=== PATIENT | female | born 1990 | race Caucasian/White ===

== ENCOUNTER → 2020-04-15 12:42 | Outpatient (CLI) | payer OTHER, SELFPAY ==
--- NOTE | ~2020-04-15 | US_ITS ---
EXAMINATION: US transvaginal DATE: 04/15/2020 13:12 INDICATION: Irregular menstrual cycle TECHNIQUE: Multiple endovaginal sonographic images of the pelvis were obtained. COMPARISON: 06/16/2017 FINDINGS: The uterus measures 9.1 x 4.0 x 5.3 cm. The endometrial complex measures 6 mm. The right ov jason measures 3.5 x 2.8 x 4.3 cm. The left ovary measures 3.8 x 2.7 x 2.4 cm. There is normal vascular flow in the ovaries. There is no free fluid in the pelvis. IMPRESSION: 1. No sonographic correlate for the patient's symptoms. Reviewed, dictated and finalized at location A. RAFT POWERTRAIN REPAIRER
--- NOTE | ~2020-04-15 | US_ITS ---
EXAMINATION: US thyroid DATE: 04/15/2020 13:12 INDICATION: Enlarged thyroid. TECHNIQUE: Multiple ultrasound images of the thyroid were obtained. COMPARISON: Chest 04/29/2016 FINDINGS: The right thyroid lobe measures 5.5 x 1.9 x 2.0 cm. The left thyroid lobe measures 5.7 x 1.8 x 2.1 c m. There is normal echotexture and echogenicity throughout the thyroid gland. No discrete nodules id entified. Normal vascular flow is present. IMPRESSION: 1. Normal thyroid. Reviewed, dictated and finalized at location B. MS COORDINATOR IMPRESSION: 1. Normal thyroid.
== END ==
PROVIDERS: Visit Provider Nurse Practitioner
DX: N92.1 Excessive and frequent menstruation with irregular cycle (principal)
CPT/HCPCS: 76536; 76830

== ENCOUNTER 2020-07-13 08:13 | Outpatient (CLI) | payer OTHER, SELFPAY ==
[2020-07-13 20:07] LABS: Free T4 Free Thyroxine 1.08 ng/mL (0.78-2.19); Vitamin D 25 Hydroxy 20.7 ng/mL
[2020-07-16 11:00] LABS: T3 Reverse 13 ng/dL (8-25)
[2020-07-17 08:16] LABS: Triiodothyronine T3 Free 2.8 pg/mL (2.3-4.2)
[2020-07-17 19:02] LABS: Testosterone Total 58 ng/dL (2-45)
== END 2020-07-13 08:14 | disposition home or self-care (01) ==
LOC: ANHBWCLAB 08:15
PROVIDERS: PCP Family Medicine; Visit Provider Family Medicine
DX: N99.89 Other postprocedural complications and disorders of genitourinary system (principal); Z98.51 Tubal ligation status; E10.9 Type 1 diabetes mellitus without complications; N91.2 Amenorrhea, unspecified; N93.8 Other specified abnormal uterine and vaginal bleeding; R79.89 Other specified abnormal findings of blood chemistry; E55.9 Vitamin D deficiency, unspecified; Z51.81 Encounter for therapeutic drug level monitoring; Z79.899 Other long term (current) drug therapy; G25.81 Restless legs syndrome; R69 Illness, unspecified
CPT/HCPCS: 36415; 82306; 84402; 84403; 84439; 84443; 84481; 84482

== ENCOUNTER 2020-10-15 16:33 | Emergency (ER) | payer OTHER, SELFPAY ==
--- NOTE | ~2020-10-15 | CT_ITS ---
EXAMINATION: CT abdomen pelvis wo con DATE: 10/15/2020 19:06 INDICATION: Right lower quadrant abdominal pain. TECHNIQUE: Computed tomography (CT) of the abdomen and pelvis was performed without intravenous contr ast. Automated exposure control and iterative reconstruction technique were employed. The dose-length product was 1398.25 mGy-cm. COMPARISON: None FINDINGS: Lung bases are clear. Heart size is normal. No pericardial or pleural effusion. Cholecystectomy clips the gallbladder fossa with additional dropped clip in the cul-de-sac. Liver, spleen, pancreas, bilat eral adrenal glands and kidneys are normal. Bowels including the appendix are normal. Bladder, uterus and bilateral adnexa are normal. No free intraperitoneal gas or fluid. No pathologically enlarged ab dominal or pelvic lymphadenopathy. Bones are unremarkable. Relatively symmetric small regions of skin thickening of indeterminate etiology on both the left and right sides of the upper abdomen. IMPRESSION: 1. No acute intra-abdominal/pelvic process. Normal appendix. Reviewed, dictated and finalized at location A.
[2020-10-15 16:34] VITALS: BP 130/89; PULSE 110; RESP 16; TEMP 36.7; O2SAT 99
[2020-10-15 16:58] LABS: Basophils Absolute Auto 0.1 K/mm3 (0.0-0.1); Basophils Percent Auto 0.5 % (0.2-1.2); Eosinophils Absolute Auto 0.1 K/mm3 (0-0.3); Eosinophils Percent Auto 1.2 % (0-4.4); Hematocrit 39.3 % (37.0-47.0); Hemoglobin 13.2 g/dL (12.0-15.0); Immature Granulocyte Absolute 0.02 K/mm3 (0.00-0.031); Immature Granulocyte Percent A 0.2 % (0-0.5); Lymphocytes Absolute Auto 2.57 K/mm3 (0.9-3.2); Lymphocytes Percent Auto 28.2 % (18.3-44.2); Mean Corpuscular HGB Conc 33.6 g/dl (32-36); Mean Corpuscular Hemoglobin 28.6 pg (26-34); Mean Corpuscular Volume 85.2 fl (80-100); Mean Platelet Volume 11.4 fl (7.4-10.4); Monocytes Absolute Auto 0.4 K/mm3 (0.1-0.6); Monocytes Percent Auto 4.5 % (2.6-8.5); Neutrophils Percent Auto 65.4 % (45.5-73.1); Platelet Count Result 264 k/mm3 (150-375); Red Blood Count 4.61 M/mm3 (4.2-5.4); Red Cell Distribution Width 12.4 % (11.5-14.5); White Blood Count 9.1 K/mm3 (4.5-10.0)
[2020-10-15 17:02] LABS: Add Urine Microscopic? YES; Appearance Urine Clear (Clear); Bacteria Urine Trace /hpf; Bilirubin Urine Negative (Negative); Blood Urine 1+ (Negative); Color Urine Straw (Yellow); Glucose Urine UA 3+ mg/dL (Negative); Ketones Urine Negative (Negative); Leukocyte Esterase Ur Negative LEU/UL (Negative); Mucus Urine Rare /lpf; Nitrate Urine Negative (Negative); Protein Urine 2+ mg/dL (Negative); RBC Urine 0-2 /hpf (0-2); Specific Grav Ur 1.021 (1.001-1.035); Squamous Epithelial Cell Urine Rare /hpf (Few); Urobilinogen Urine Negative mg/dL (<2.0); WBC Urine 0-3 /hpf
[2020-10-15 17:07] LABS: Alanine Aminotransferase 17 U/L (4-35); Albumin Level 4.1 g/dL (3.5-5.1); Alkaline Phosphatase 121 U/L (38-126); Anion Gap 11 mmol/L (8-16); Aspartate Amino Transferase 25 U/L (14-36); Bilirubin,Total 0.3 mg/dL (0.2-1.3); Blood Urea Nitrogen 33 mg/dL (7-17); Calcium 9.4 mg/dL (8.4-10.2); Carbon Dioxide 23 mmol/L (22-30); Chloride 100 mmol/L (98-107); Estimated CRCL calculation 64 ml/min; Estimated Glomerular Filt Rate 37; Glucose 284 mg/dL (65-105); Lipase 90 U/L (23-300); Potassium 4.3 mmol/L (3.4-5.0); Sodium 134 mmol/L (137-145)
[2020-10-15 17:43] VITALS: BP 90/78; PULSE 94; RESP 16; O2SAT 98
[2020-10-15 17:56] LABS: Glucose Point of Care 113 mg/dl (65-105)
[2020-10-15 19:09] VITALS: BP 124/82; PULSE 99; RESP 16; O2SAT 101
[2020-10-15] MEDS: LACTATED RINGERS 1,000 ML 999 ML IV CONT (19:11)
[2020-10-15] MEDS: DICYCLOMINE HCL INJ 20 MG/2 ML VIAL IM (19:14)
--- NOTE | 2020-10-15 19:58 | ED.ABDPAIN ---
HPI - Abdominal Pain General Chief Complaint: Abdominal Pain Stated Complaint: ABD PAIN Time Seen by Provider: 10/15/20 17:39 Source: patient Mode of arrival: ambulatory Limitations: no limitations History of Present Illness HPI narrative: 30-year-old female She is a insulin-dependent diabetic Patient is here for evaluation of right-sided abdominal pain which has been present for less than 24 hours She has not had fever vomiting or diarrhea, nor has she had any dysuria frequency or new vaginal discharge with it Pain is mainly on the lower right and seems to sometimes wraparound to the back She has not noticed anything that makes it better or worse, in particular meals and activity or ambulation have not seemed to aggravate it She has had C-sections and a cholecystectomy her appendix is still in place Related Data Home Medications Medication Instructions Recorded Confirmed amlodipine 10 mg tablet 10 mg PO DAILY 07/10/20 insulin lispro 100 unit/mL 20 - 30 unit SUBCUT .COMPLEX ml 07/10/20 subcutaneous pen progesterone micronized 100 mg 100 mg PO DAILY cap 07/10/20 capsule Allergies Allergy/AdvReac Type Severity Reaction Status Date / Time No Known Allergies Allergy Unverified 07/28/20 14:21 Review of Systems Review of Systems: All systems reviewed & are unremarkable except as noted in HPI and below Constitutional: Constitutional: Reports no additional constitutional complaints, Denies chills, Denies fever(s) and Denies headache(s) Eyes: Eyes: Reports no additional eye complaints and Denies change in vision ENT: Denies headache(s) and Denies sore throat Cardiovascular: Cardiovascular: Denies chest pain and Denies dyspnea Respiratory: Respiratory: Denies cough and Denies dyspnea Gastrointestinal: Gastrointestinal: Reports abdominal pain, Denies bloating, Denies diarrhea, Reports nausea and Denies vomiting Genitourinary: Genitourinary: Denies abnormal vaginal bleeding, Denies hematuria, Denies urinary frequency and Denies dysuria Musculoskeletal: Musculoskeletal: Denies deformity, Denies arthralgias, Denies joint swelling and Denies numbness Integumentary/Breasts: Skin/Breast: Denies rash and Denies wounds Neurologic: Denies headache(s), Denies focal weakness and Denies numbness Psychiatric: Psychiatric: Reports no additional psychiatric complaints Endocrine: Endocrine: Reports no additional endocrine complaints Hematologic/Lymphatic: Hematologic/Lymphatic: Reports no additional hematologic/lymphatic complaints Allergic/Immunologic: Allergic/Immunologic: Reports no additional allergic/immunologic complaints [facility] Past Medical History Medical History Allergies Asthma Diabetes Hypertension Family History Family History Father Diabetes mellitus Cerebrovascular accident Mother Multiple sclerosis Grandparent Hypertension Heart problem Ovarian cancer Grandparent Hypertension Depression with anxiety Social History Social History Smoking status: Never smoker Alcohol intake: never Substance use: never Exam Const: General: cooperative, no acute distress and alert Orientation/consciousness: patient oriented x3 (alert) HENMT: Head: normal to inspection, normocephalic and atraumatic Ears: external ears normal General nose exam: no epistaxis Eyes: Conjunctivae: conjunctivae normal EOM: EOMs intact bilaterally Neck: Neck: normal visual inspection, supple and no JVD Resp: Effort & Inspection: normal respiratory effort and not labored Auscultation: clear to auscultation bilaterally and other (BS =) Cardio: Rate: regular rate Rhythm: regular rhythm Heart sounds: no murmurs GI: Inspection: non-distended and other (Some lipodystrophy of the abdominal wall) GI Palp: Yes Soft to palpation, Yes Tendern
[2020-10-15 21:08] VITALS: BP 128/86; PULSE 91; RESP 16; O2SAT 100
== END 2020-10-15 21:10 | disposition home or self-care (01) ==
PROVIDERS: Emergency Medicine; Emergency Provider Emergency Medicine; PCP Family Medicine
DX: R10.9 Unspecified abdominal pain (principal); J45.909 Unspecified asthma, uncomplicated; E11.9 Type 2 diabetes mellitus without complications; I10 Essential (primary) hypertension
CPT/HCPCS: 36415; 74176; 80053; 81001; 81025; 82948; 83690; 85025; 96360; 96372; 99284; J0500; J7120

== ENCOUNTER 2020-11-17 15:00 | Outpatient (RCR) | payer OTHER, SELFPAY ==
[2020-11-17 15:25] VITALS: BMI 49.1
[2020-11-17 15:28] VITALS: BMI 49.1
== END 2021-02-01 14:31 | disposition home or self-care (01) ==
LOC: ANHDMC 15:00
PROVIDERS: PCP Family Medicine; Visit Provider Internal Medicine Endocrinology, Diabetes & Metabolism
DX: E10.65 Type 1 diabetes mellitus with hyperglycemia (principal); Z71.3 Dietary counseling and surveillance; Z71.89 Other specified counseling
CPT/HCPCS: 97802; G0108

== ENCOUNTER 2021-09-01 14:08 | Outpatient (CLI) | payer OTHER, SELFPAY ==
[2021-09-01 18:53] LABS: Hematocrit 36.5 % (37.0-47.0); Hemoglobin 11.4 g/dL (12.0-15.0); Mean Corpuscular HGB Conc 31.2 g/dl (32-36); Mean Corpuscular Volume 92.9 fl (80-100); Mean Platelet Volume 10.8 fl (7.4-10.4); Platelet Count Result 287 k/mm3 (150-375); Red Blood Count 3.93 M/mm3 (4.2-5.4); Red Cell Distribution Width 12.7 % (11.5-14.5); White Blood Count 12.2 K/mm3 (4.5-10.0)
[2021-09-01 19:21] LABS: Alanine Aminotransferase 13 U/L (4-35); Albumin Level 3.9 g/dL (3.5-5.1); Alkaline Phosphatase 107 U/L (38-126); Anion Gap 5 mmol/L (8-16); Aspartate Amino Transferase 21 U/L (14-36); Bilirubin,Total 0.3 mg/dL (0.2-1.3); Blood Urea Nitrogen 28 mg/dL (7-17); Calcium 8.8 mg/dL (8.4-10.2); Carbon Dioxide 27 mmol/L (22-30); Chloride 103 mmol/L (98-107); Cholesterol 170 mg/dL (0-200); Estimated Glomerular Filt Rate 40; Glucose 184 mg/dL (65-110); HDL Direct 42 mg/dL; Potassium 4.3 mmol/L (3.4-5.0); Sodium 135 mmol/L (137-145); Triglycerides 243 mg/dL (<150)
[2021-09-01 19:28] LABS: Creatinine Urine 109.4 mg/dL
[2021-09-01 19:32] LABS: LDL Cholesterol Direct 81 mg/dL
[2021-09-01 19:34] LABS: Vitamin D 25 Hydroxy 50.4 ng/mL
[2021-09-01 19:51] LABS: MALB Creatinine Ratio 261.1 mg/g (0-30); Microalbumin Urine Random 285.6 mg/L (0-16.7)
== END 2021-09-01 14:09 | disposition home or self-care (01) ==
PROVIDERS: PCP Family Medicine; Visit Provider Family Medicine
DX: E11.9 Type 2 diabetes mellitus without complications (principal); E78.5 Hyperlipidemia, unspecified; R79.89 Other specified abnormal findings of blood chemistry; I10 Essential (primary) hypertension; E66.9 Obesity, unspecified; E55.9 Vitamin D deficiency, unspecified
CPT/HCPCS: 36415; 80053; 80061; 82043; 82306; 84443; 85027

== ENCOUNTER 2021-09-03 09:05 | Outpatient (CLI) | payer OTHER, SELFPAY ==
[2021-09-03 18:06] LABS: Add Urine Microscopic? YES; Appearance Urine Clear (Clear); Bacteria Urine Trace /hpf; Bilirubin Urine Negative (Negative); Blood Urine 1+ (Negative); Color Urine Colorless (Yellow); Glucose Urine UA 1+ mg/dL (Negative); Ketones Urine Negative (Negative); Leukocyte Esterase Ur Negative LEU/UL (NEGATIVE); Nitrate Urine Negative (Negative); Protein Urine Negative (Negative); RBC Urine 0-2 /hpf (0-2); Specific Grav Ur 1.005 (1.001-1.035); Squamous Epithelial Cell Urine Rare /hpf (Few); Urobilinogen Urine Negative mg/dL (<2.0); WBC Urine 0-3 /hpf (0-3)
== END 2021-09-03 09:06 | disposition home or self-care (01) ==
LOC: ANHLAB 09:09 → ANHBWCLAB 09:14
PROVIDERS: PCP Family Medicine; Visit Provider Family Medicine
DX: D72.829 Elevated white blood cell count, unspecified (principal); Z51.81 Encounter for therapeutic drug level monitoring; Z79.899 Other long term (current) drug therapy
CPT/HCPCS: 81001; 87086

== ENCOUNTER 2021-12-10 07:35 | Outpatient (CLI) | payer OTHER, SELFPAY ==
[2021-12-10 20:14] LABS: Iron 65 ug/dL (37-170)
[2021-12-10 20:31] LABS: Percent Iron Saturation 22 % (20-50)
[2021-12-10 21:04] LABS: Basophils Absolute Auto 0.1 K/mm3 (0.0-0.1); Basophils Percent Auto 0.8 % (0.2-1.2); Eosinophils Absolute Auto 0.1 K/mm3 (0-0.3); Eosinophils Percent Auto 1.2 % (0-4.4); Hematocrit 37.9 % (37.0-47.0); Hemoglobin 11.5 g/dL (12.0-15.0); Immature Granulocyte Absolute 0.03 K/mm3 (0.00-0.031); Immature Granulocyte Percent A 0.3 % (0-0.5); Lymphocytes Absolute Auto 2.34 K/mm3 (0.9-3.2); Mean Corpuscular HGB Conc 30.3 g/dl (32-36); Mean Corpuscular Hemoglobin 28.8 pg (26-34); Mean Corpuscular Volume 94.8 fl (80-100); Mean Platelet Volume 10.9 fl (7.4-10.4); Monocytes Absolute Auto 0.4 K/mm3 (0.1-0.6); Monocytes Percent Auto 4.7 % (2.6-8.5); Platelet Count Result 288 k/mm3 (150-375)
== END 2021-12-10 07:36 | disposition home or self-care (01) ==
LOC: ANHBWCLAB 07:38
PROVIDERS: PCP Family Medicine; Visit Provider Family Medicine
DX: D64.9 Anemia, unspecified (principal)
CPT/HCPCS: 36415; 82607; 83540; 83550; 85025

== ENCOUNTER 2022-05-19 14:18 | Outpatient (CLI) | payer OTHER, SELFPAY ==
[2022-05-19 19:24] LABS: Basophils Absolute Auto 0.1 K/mm3 (0.0-0.1); Basophils Percent Auto 0.6 % (0.2-1.2); Eosinophils Absolute Auto 0.3 K/mm3 (0-0.3); Eosinophils Percent Auto 2.7 % (0-4.4); Hematocrit 37.9 % (37.0-47.0); Hemoglobin 12.2 g/dL (12.0-15.0); Immature Granulocyte Absolute 0.04 K/mm3 (0.00-0.031); Immature Granulocyte Percent A 0.4 % (0-0.5); Lymphocytes Absolute Auto 3.17 K/mm3 (0.9-3.2); Lymphocytes Percent Auto 29.6 % (18.3-44.2); Mean Corpuscular HGB Conc 32.2 g/dl (32-36); Mean Corpuscular Hemoglobin 28.3 pg (26-34); Mean Corpuscular Volume 87.9 fl (80-100); Mean Platelet Volume 10.7 fl (7.4-10.4); Monocytes Absolute Auto 0.7 K/mm3 (0.1-0.6); Monocytes Percent Auto 6.7 % (2.6-8.5); Neutrophils Absolute Auto 6.4 K/mm3 (1.3-6.7); Platelet Count Result 321 k/mm3 (150-375); Red Blood Count 4.31 M/mm3 (4.2-5.4); Red Cell Distribution Width 12.8 % (11.5-14.5); White Blood Count 10.7 K/mm3 (4.5-10.0)
[2022-05-19 19:26] LABS: Creatinine Urine 65.2 mg/dL; Total Protein Urine Random 16 mg/dL; Ur Ttl Prot Creatinine Ratio 0.25 mg/mg (0-0.20)
[2022-05-19 21:08] LABS: Alanine Aminotransferase 22 U/L (6-35); Albumin Level 4.2 g/dL (3.5-5.1); Alkaline Phosphatase 112 U/L (38-126); Anion Gap 6 mmol/L (8-16); Aspartate Amino Transferase 50 U/L (14-36); Bilirubin,Total 0.5 mg/dL (0.2-1.3); Blood Urea Nitrogen 16 mg/dL (7-17); Calcium 8.7 mg/dL (8.4-10.2); Carbon Dioxide 29 mmol/L (22-30); Chloride 100 mmol/L (98-107); Estimated Glomerular Filt Rate 35; Glucose 84 mg/dL (65-110); Phosphorus 3.8 mg/dL (2.5-4.5); Potassium 4.4 mmol/L (3.4-5.0); Sodium 135 mmol/L (137-145)
== END 2022-05-19 14:19 | disposition home or self-care (01) ==
LOC: ANHBWCLAB 14:21
PROVIDERS: PCP Family Medicine; Visit Provider Internal Medicine Nephrology
DX: I12.9 Hypertensive chronic kidney disease with stage 1 through stage 4 chronic kidney disease, or unspecified chronic kidney disease (principal); N18.31 Chronic kidney disease, stage 3a; E11.22 Type 2 diabetes mellitus with diabetic chronic kidney disease; D64.9 Anemia, unspecified
CPT/HCPCS: 36415; 80053; 80069; 82570; 84156; 85025

== ENCOUNTER 2022-07-26 08:59 | Outpatient (CLI) | payer OTHER, SELFPAY ==
--- NOTE | ~2022-07-26 | XR_ITS ---
EXAMINATION: XR abdomen obstructive series DATE: 07/26/2022 09:15 INDICATION: Unspecified abdominal pain TECHNIQUE: Upright and supine views of the abdomen were obtained. COMPARISON: None. FINDINGS: The bowel gas pattern is normal. There is moderate volume of stool. No free intraperitoneal gas is identified. Surgical clips in the right upper quadrant are likely from prior cholecystectomy. Phleboliths are noted in the pelvis. IMPRESSION: 1. Nonobstructive bowel gas pattern. Reviewed, dictated and finalized at location L.
[2022-07-26 18:51] LABS: Hematocrit 40.9 % (37.0-47.0); Mean Corpuscular HGB Conc 31.8 g/dl (32-36); Mean Corpuscular Hemoglobin 28.7 pg (26-34); Mean Corpuscular Volume 90.3 fl (80-100); Mean Platelet Volume 11.7 fl (7.4-10.4); Platelet Count Result 303 k/mm3 (150-375); Red Blood Count 4.53 M/mm3 (4.2-5.4); Red Cell Distribution Width 12.9 % (11.5-14.5); White Blood Count 7.1 K/mm3 (4.5-10.0)
[2022-07-26 18:58] LABS: Lipase 53 U/L (23-300)
== END 2022-07-26 09:00 | disposition home or self-care (01) ==
LOC: ANHBWCLAB 09:00
PROVIDERS: PCP Family Medicine; Visit Provider Family Medicine
DX: R10.9 Unspecified abdominal pain (principal)
CPT/HCPCS: 36415; 74019; 83690; 85027

== ENCOUNTER 2022-08-30 07:21 | Outpatient (CLI) | payer OTHER, SELFPAY ==
[2022-08-30 20:11] LABS: Basophils Percent Auto 0.5 % (0.2-1.2); Eosinophils Absolute Auto 0.2 K/mm3 (0-0.3); Eosinophils Percent Auto 2.6 % (0-4.4); Hematocrit 40.2 % (37.0-47.0); Hemoglobin 12.4 g/dL (12.0-15.0); Immature Granulocyte Absolute 0.02 K/mm3 (0.00-0.031); Immature Granulocyte Percent A 0.3 % (0-0.5); Lymphocytes Absolute Auto 2.41 K/mm3 (0.9-3.2); Lymphocytes Percent Auto 32.9 % (18.3-44.2); Mean Corpuscular HGB Conc 30.8 g/dl (32-36); Mean Corpuscular Hemoglobin 28.1 pg (26-34); Mean Corpuscular Volume 91.2 fl (80-100); Mean Platelet Volume 11.6 fl (7.4-10.4); Monocytes Absolute Auto 0.6 K/mm3 (0.1-0.6); Monocytes Percent Auto 7.8 % (2.6-8.5); Neutrophils Absolute Auto 4.1 K/mm3 (1.3-6.7); Neutrophils Percent Auto 55.9 % (45.5-73.1); Platelet Count Result 283 k/mm3 (150-375); Red Blood Count 4.41 M/mm3 (4.2-5.4); White Blood Count 7.3 K/mm3 (4.5-10.0)
[2022-08-30 20:28] LABS: Alanine Aminotransferase 19 U/L (6-35); Alkaline Phosphatase 90 U/L (38-126); Anion Gap 5 mmol/L (8-16); Aspartate Amino Transferase 41 U/L (14-36); Bilirubin,Total 0.4 mg/dL (0.2-1.3); Blood Urea Nitrogen 20 mg/dL (7-17); Calcium 8.9 mg/dL (8.4-10.2); Carbon Dioxide 30 mmol/L (22-30); Chloride 102 mmol/L (98-107); Estimated Glomerular Filt Rate 47; Glucose 167 mg/dL (65-110); Potassium 4.9 mmol/L (3.4-5.0); Sodium 137 mmol/L (137-145)
[2022-08-30 20:29] LABS: Cholesterol 112 mg/dL (0-200); HDL Direct 33 mg/dL; Triglycerides 136 mg/dL (<150)
[2022-08-30 20:39] LABS: LDL Cholesterol Direct 46 mg/dL
== END 2022-08-30 07:22 | disposition home or self-care (01) ==
LOC: ANHBWCLAB 07:22
PROVIDERS: PCP Family Medicine; Visit Provider Nurse Practitioner Family
DX: Z00.00 Encounter for general adult medical examination without abnormal findings (principal); I12.9 Hypertensive chronic kidney disease with stage 1 through stage 4 chronic kidney disease, or unspecified chronic kidney disease; E11.22 Type 2 diabetes mellitus with diabetic chronic kidney disease; N18.32 Chronic kidney disease, stage 3b; N25.81 Secondary hyperparathyroidism of renal origin; E55.9 Vitamin D deficiency, unspecified
CPT/HCPCS: 36415; 80053; 80061; 84443; 85025

== ENCOUNTER → 2022-10-31 12:43 | Outpatient (CLI) | payer OTHER, SELFPAY ==
--- NOTE | ~2022-10-31 | US_ITS ---
Pelvic ultrasound. Clinical History: Other specified abnormal uterine vaginal bleeding Technique: Realtime transabdominal and transvaginal scanning of the pelvis was performed. Color flow Doppler and Doppler spectral analysis were performed. Findings: The uterus is anteverted. The endometrial stripe has a thickness of 8 mm. No focal mass is identified. The right ovary measures 3.2 x 3.6 x 3.6 cm. No significant right ovarian or adnexal mass is seen. The left ovary measures 3.6 x 2.6 x 4.0 cm. No significant left ovarian or adnexal mass is seen. There is no evidence of free fluid in the cul de sac. Impression: No significant abnormality seen. Reviewed, dictated and finalized at [facility]. Impression: No significant abnormality seen.
== END ==
PROVIDERS: PCP Nurse Practitioner; Visit Provider Nurse Practitioner
DX: N93.8 Other specified abnormal uterine and vaginal bleeding (principal)
CPT/HCPCS: 76830

== ENCOUNTER 2022-11-16 08:31 | Outpatient (CLI) | payer OTHER, SELFPAY ==
[2022-11-16 09:22] LABS: Anion Gap 4 mmol/L (8-16); Blood Urea Nitrogen 17 mg/dL (7-17); Carbon Dioxide 26 mmol/L (22-30); Chloride 105 mmol/L (98-107); Estimated Glomerular Filt Rate 43; Glucose 186 mg/dL (65-110); Potassium 4.6 mmol/L (3.4-5.0); Sodium 135 mmol/L (137-145)
== END 2022-11-16 08:32 | disposition home or self-care (01) ==
LOC: ANHSURGERY 08:36
PROVIDERS: Anesthesiology; PCP Nurse Practitioner; Visit Provider Obstetrics & Gynecology Gynecology
DX: E10.9 Type 1 diabetes mellitus without complications (principal); Z01.818 Encounter for other preprocedural examination
CPT/HCPCS: 36415; 80048

== ENCOUNTER 2022-11-21 03:54 | Day surgery (SDC) | payer OTHER, SELFPAY ==
[2022-11-15 09:50] VITALS: BMI 37.8
--- NOTE | 2022-11-15 09:54 | PC.NURSE ---
Report to the Outpatient Waiting Room, entrance under the green pavilion located off [facility], at time 8:45 on date 11/21/22. Planned Procedure Time: 10:45. Time changes happen often and if your time is changed the preop area will call you the afternoon before. - You and your visitor will be asked to self-screen and do not enter if you have any COVID symptoms. - A mask is optional within the hospital at this time. Patients may have clear liquids (water, carbonated beverages, clear teas, apple juice) until 3 hours prior to surgery with a maximum of 20 ounces. - No food from midnight until time of surgery Take the following medications with a SIP of water the morning of surgery: INHALER IF NEEDED. CONTINUE USUAL BASAL RATE ON INSULIN PUMP DO NOT STOP ANY OF YOUR OTHER PRESCRIPTION MEDICATIONS PRIOR TO SURGERY ?EXCEPT THE FOLLOWING Medications to discontinue per physician: VITAMINS Date to take last dose: 11/17/22 Please no make-up, nail macedonian, hairspray, perfume, deodorant, or body powder the day of surgery. No jewelry (including any body piercings) or valuables the day of surgery, leave them at home. Please take a shower or bath the night before, or the morning of, surgery with an antibacterial soap. Wear comfortable, loose fitting clothing. - Jewelry must be removed prior to entering the operating room. Rings and piercings that are not removed may be cut off. - The hospital will not accept responsibility for valuables. - Please leave all valuables, including medications, at home the day of surgery. If you are going home after surgery, a licensed clark driver must drive you home. - NO public transportation without another adult if you receive anesthesia. - We recommend that an adult stay with you for 24 hours following discharge. - We also recommend that you do not drive, make important decision, drink alcoholic beverages, or take any drugs that were not prescribed by your health care provider for at least 24 hours after your discharge time. Follow any additional instructions given to you from your surgeon. If you or anyone in your household have experienced Covid symptoms in the past week, please notify your surgeon or the nurse liaison at the phone number below for possible testing. Telephone instructions given to PT - YARELIS VILLELA and asked if any additional questions and then verbalized understanding. Patient advised to call surgeon office or pre surgery nurse liaison [phone] if any additional questions.
[2022-11-21] VITALS (7 sets, daily range): BP systolic 104–122; BP diastolic 77–85; PULSE 70–89; RESP 16–20; TEMP 36.4; O2SAT 99–100
--- NOTE | 2022-11-21 08:27 | WPDHPUPDATE1 ---
History and Physical Update Update Date/Time: 11/21/22 08:27 History and Physical has been reviewed, including an updated exam of the patient. There are NO changes in the patient's condition. Risks, benefits, and alternatives have been discussed and questions answered. Patient agrees to proceed with procedure.
--- NOTE | 2022-11-21 08:27 | PM.HPGS ---
History of Present Illness History of Present Illness Consent: Risks, benefits, and alternatives have been discussed and questions answered. Patient agrees to proceed with procedure. Chief complaint: abnormal uterine bleeding Narrative: Aure Maldonado is a 32 year old female with irregular and prolonged menstrual cycles since stopping her progesterone in May of 2022. Pelvic ultrasound was normal. It was recommended to proceed with D&C hysteroscopy for further evaluation of her endometrium. Risks of infection, bleeding, perforation, and possible pathology are discussed. Patient voices understanding and agrees to proceed. Review of Systems Review of Systems: not repeated day of surgery; patient states no changes in status [facility] Past Medical History Medical History (Updated 11/21/22 @ 08:31 by Divya Fernandes MD) Allergies Anemia Asthma Hyperlipidemia Hypertension Secondary renal hyperparathyroidism Stage 3b chronic kidney disease Type 1 diabetes mellitus Vitamin D deficiency Surgical History Surgical History History of cholecystectomy Previous section x2 Family History Family History Father Diabetes mellitus Cerebrovascular accident Mother Multiple sclerosis Grandparent Hypertension Heart problem Ovarian cancer Grandparent Hypertension Depression with anxiety Social History Social History Smoking status: Never smoker Alcohol intake: never Substance use: never Substance use type: does not use Lack of Transportation: No Lack of Food: Never True Concerned About Future Housing: No Difficulty Paying Gas/Electric Bills: No Difficulty Paying for Meds: No Currently Unemployed: No Education: High School Diploma/GED Living arrangements: with family Gender identity (if verbalized by the patient): Female Spiritual care concerns: No Meds Home Medications and Allergies Home Medications Medication Instructions Recorded Confirmed Type blood-glucose meter,continuous #1 ea 10/30/20 09/14/22 Rx (Dexcom G6 Farmworker Bulbs) blood sugar diagnostic (Contour #300 ea 12/15/20 09/14/22 Rx Next Test Strips) albuterol sulfate 90 mcg/actuation 1 inh inhalation Q4H PRN shortness 09/01/21 11/15/22 Rx aerosol inhaler of breath or wheezing #8.5 grams metformin 500 mg tablet 500 mg PO BID 90 days #180 tabs 09/01/21 11/15/22 Rx cholecalciferol (vitamin D3) 50 100 mcg PO DAILY #90 caps 01/10/22 11/15/22 Rx mcg (2,000 unit) capsule spironolactone 100 mg tablet 100 mg PO DAILY #90 tabs 03/05/22 11/15/22 Rx insulin pump cart,automated,BT #30 ea 05/16/22 09/14/22 Rx (Omnipod 5 G6 Pods (Gen 5) subcutaneous cartridge) glucagon 1 mg/0.2 mL subcutaneous 1 mg (0.2 mL) subcut ONCE #0.4 mL 06/14/22 11/15/22 Rx auto-injector (Gvoke HypoPen 2-Pack) Humalog U-100 Insulin 100 unit/mL See Rx Instructions .Route 06/29/22 11/15/22 Rx subcutaneous solution (insulin .COMPLEX #90 mL lispro) blood-glucose sensor (Dexcom G6 #9 ea 08/29/22 09/14/22 Rx Sensor device) blood-glucose transmitter (Dexcom #1 ea 08/29/22 09/14/22 Rx G6 Transmitter device) tirzepatide 12.5 mg/0.5 mL 12.5 mg (0.5 mL) subcut WEEKLY 30 09/07/22 11/15/22 Rx subcutaneous pen injector days #2 mL (Christina) atorvastatin 20 mg tablet 20 mg PO DAILY #90 tabs 10/15/22 11/15/22 Rx losartan 50 mg tablet 50 mg PO DAILY #90 tabs 10/15/22 11/15/22 Rx Allergies Allergy/AdvReac Type Severity Reaction Status Date / Time No Known Allergies Allergy Verified 11/15/22 09:47 Exam Const: General: healthy appearing and alert Orientation/consciousness: patient oriented x3 Resp: Effort & Inspection: normal respiratory effort GI: GI Palp: Yes Soft to palpation, No Tenderness to palpation presen
[2022-11-21] MEDS: LACTATED RINGERS 1,000 ML 30 ML IV CONT (09:29)
[2022-11-21 09:32] LABS: Glucose Point of Care 167 mg/dl (65-105)
--- NOTE | 2022-11-21 09:44 | WPDANESEPPF ---
Anes - Initial Pre Proc Eval Procedure: Operation Date: 11/21/22 10:45 Proposed Procedures p Hysteroscopy Dilation and Curettage - Divya Fernandes MD Date/Time: 11/21/22 09:44 Surgeon: Divya Fernandes MD Pre Op Diagnosis: abnormal uterine bleeding Patient Data Age: 32 Gender: F Height: 1.73 m Weight: 109.5 kg Last Vital Signs Temp 36.4 C L 11/21/22 09:00 Pulse 89 11/21/22 09:00 Resp 18 11/21/22 09:00 BP 122/81 11/21/22 09:00 Pulse Ox 100 11/21/22 09:00 O2 Del Method Room Air 11/21/22 09:00 Allergies Allergy/AdvReac Type Severity Reaction Status Date / Time No Known Allergies Allergy Verified 11/21/22 09:27 Home Medications Medication Instructions Recorded Confirmed Type blood-glucose meter,continuous #1 ea 10/30/20 09/14/22 Rx (Dexcom G6 Outside Parts Salesman) blood sugar diagnostic (Contour #300 ea 12/15/20 09/14/22 Rx Next Test Strips) albuterol sulfate 90 mcg/actuation 1 inh inhalation Q4H PRN shortness 09/01/21 11/15/22 Rx aerosol inhaler of breath or wheezing #8.5 grams metformin 500 mg tablet 500 mg PO BID 90 days #180 tabs 09/01/21 11/15/22 Rx cholecalciferol (vitamin D3) 50 100 mcg PO DAILY #90 caps 01/10/22 11/15/22 Rx mcg (2,000 unit) capsule spironolactone 100 mg tablet 100 mg PO DAILY #90 tabs 03/05/22 11/15/22 Rx insulin pump cart,automated,BT #30 ea 05/16/22 09/14/22 Rx (Omnipod 5 G6 Pods (Gen 5) subcutaneous cartridge) glucagon 1 mg/0.2 mL subcutaneous 1 mg (0.2 mL) subcut ONCE #0.4 mL 06/14/22 11/15/22 Rx auto-injector (Gvoke HypoPen 2-Pack) Humalog U-100 Insulin 100 unit/mL See Rx Instructions .Route 06/29/22 11/15/22 Rx subcutaneous solution (insulin .COMPLEX #90 mL lispro) blood-glucose sensor (Dexcom G6 #9 ea 08/29/22 09/14/22 Rx Sensor device) blood-glucose transmitter (Dexcom #1 ea 08/29/22 09/14/22 Rx G6 Transmitter device) tirzepatide 12.5 mg/0.5 mL 12.5 mg (0.5 mL) subcut WEEKLY 30 09/07/22 11/15/22 Rx subcutaneous pen injector days #2 mL (Christina) atorvastatin 20 mg tablet 20 mg PO DAILY #90 tabs 10/15/22 11/15/22 Rx losartan 50 mg tablet 50 mg PO DAILY #90 tabs 10/15/22 11/15/22 Rx Laboratory Tests 11/21/22 09:26 POC Capillary Glucose 167 H mg/dl (65-105) Patient hx anesthesia problems: none Family hx anesthesia problems: none Results Review: All pre-operative results and documents have been reviewed as part of the pre-operative evaluation. PMF Past Medical History Medical History Allergies Anemia Asthma Hyperlipidemia Hypertension Secondary renal hyperparathyroidism Stage 3b chronic kidney disease Type 1 diabetes mellitus Vitamin D deficiency Surgical History Surgical History History of cholecystectomy Previous section x2 Family History Family History Father Diabetes mellitus Cerebrovascular accident Mother Multiple sclerosis Grandparent Hypertension Heart problem Ovarian cancer Grandparent Hypertension Depression with anxiety Social History Social History Smoking status: Never smoker Alcohol intake: never Substance use: never Substance use type: does not use Lack of Transportation: No Lack of Food: Never True Concerned About Future Housing: No Difficulty Paying Gas/Electric Bills: No Difficulty Paying for Meds: No Currently Unemployed: No Education: High School Diploma/GED Living arrangements: with family Gender identity (if verbalized by the patient): Female Spiritual care concerns: No Anes - Eval Final PreProcedure Day of Procedure 11/21/22 09:44 Patient weight: obese Heart: regular rate and rhythm Lungs: clear to auscultation Airway: Mallampati scale class II N
[2022-11-21] MEDS: ACETAMINOPHEN 500 MG TABLET 1000 MG PO (10:06)
--- NOTE | 2022-11-21 11:16 | W.PM.PROC2 ---
Procedure Note - Detailed Date of Procedure 11/21/22 Pre-op Diagnosis menorrhagia Post-op Diagnosis Same Procedure Performed D&C hysteroscopy Surgeon Divya Fernandes MD Anesthesia MAC Findings uterus sounds to 10cm and appears grossly normal Description of Procedure The patient was taken to the operating room and placed under anesthesia in the dorsal lithotomy position. She was prepped and draped in the usual sterile fashion. Odanah speculum was placed in the vagina and the cervix grasped on the anterior lip with a tenaculum. The uterus is sounded to 10cm. The diagnostic hysteroscope is placed with no abnormalities noted. The hysteroscope was removed and the sharp curette is used to curette the endometrium until a good uterine cry noted in all areas. All instruments are removed. Sponge, needle, and instrument counts are correct per the OR staff. Patient was awakened from anesthesia and taken to recovery in stable condition. Estimated Blood Loss 5 Drains No Packing No Pathology Yes ( Endometrial curettings) Complications No immediate complications Condition Stable Disposition PACU
[2022-11-21] MEDS: ONDANSETRON INJ 4 MG/2 ML VIAL IV PUSH (11:23)
[2022-11-21 11:43] LABS: Glucose Point of Care 164 mg/dl (65-105)
[2022-11-21] MEDS: fentaNYL CITRATE INJ (*CRX) 100 MCG/2 ML VIAL 25 MCG IV PUSH ×2 (11:46→11:49)
== END 2022-11-21 13:00 | disposition home or self-care (01) ==
PROVIDERS: PCP Nurse Practitioner; Visit Provider Obstetrics & Gynecology Gynecology
PROC: 0U5B8ZZ Destruction of Endometrium, Via Natural or Artificial Opening Endoscopic (ICD-10-PCS; CPT 58563; principal; 2022-11-21 10:45)
DX: N92.0 Excessive and frequent menstruation with regular cycle (principal); I12.9 Hypertensive chronic kidney disease with stage 1 through stage 4 chronic kidney disease, or unspecified chronic kidney disease; E10.22 Type 1 diabetes mellitus with diabetic chronic kidney disease; N25.81 Secondary hyperparathyroidism of renal origin; N18.32 Chronic kidney disease, stage 3b; E55.9 Vitamin D deficiency, unspecified; E78.5 Hyperlipidemia, unspecified; J45.909 Unspecified asthma, uncomplicated; D64.9 Anemia, unspecified; Z79.51 Long term (current) use of inhaled steroids; Z79.84 Long term (current) use of oral hypoglycemic drugs; E66.9 Obesity, unspecified; Z68.36 Body mass index [BMI] 36.0-36.9, adult; Z79.4 Long term (current) use of insulin; Z96.41 Presence of insulin pump (external) (internal)
CPT/HCPCS: 58558; 36415; 80048; 82948; 88305; A9270; J2250; J2405; J2704; J3010; J7120

== ENCOUNTER 2023-03-22 09:29 | Emergency (ER) | payer OTHER, SELFPAY ==
--- NOTE | ~2023-03-22 | XR_ITS ---
XR wrist RT min 3V DATE: 03/22/2023 09:44 INDICATION: Injury, lateral pain TECHNIQUE: 4 views of right wrist COMPARISON: None FINDINGS: No fracture or dislocation, periosteal reaction or bone destruction. Joint spaces are relat ively well preserved. No erosive change or chondrocalcinosis. IMPRESSION: Negative Reviewed, dictated and finalized at location B. NAGE DESIGN COORDINATOR IMPRESSION: Negative
[2023-03-22 09:37] VITALS: BP 120/85; PULSE 97; RESP 14; TEMP 36.6; O2SAT 99
--- NOTE | 2023-03-22 09:52 | ED.UPPEXIN ---
HPI - Extremity Injury (Upper) General Chief Complaint: Extremity Injury, Upper Stated Complaint: Fall Injury /Right Wrist Time Seen by Provider: 03/22/23 09:50 Source: patient, RN notes reviewed and old records reviewed Mode of arrival: ambulatory Limitations: no limitations History of Present Illness HPI narrative: 32 year old female presents to express care with complaints of right wrist pain and left knee pain after falling after stepping off of curb. Patient states that she fell with outstretched right hand trying to break her fall and onto her knees. Patient has some abrasions bruising and mild swelling to her left knee and also some bruising to her right knee with full mobility of both knees noted with stated mild discomfort. Patient reports that her right wrist is throbbing with pain with minimal attempted movement. Patient is right hand dominant.Patient reports that she has taken some Tylenol for her discomfort.Patient denies hitting head with fall or any LOC. MD complaint: injury to: right and wrist Onset (ago): day(s) (1) Other injuries: LLE (knee bruising and abrasions mild swelling) and RLE (bruising) Handedness: right Place: outdoors Severity scale (1-10): 8 Exacerbating factors: movement of extremity Treatments prior to arrival: other (Tylenol) Related Data Home Medications Medication Instructions Recorded Confirmed blood-glucose sensor (Dexcom G6 03/22/23 03/22/23 Sensor device) insulin pump cart,automated,BT 03/22/23 03/22/23 (Omnipod 5 G6 Pods (Gen 5) subcutaneous cartridge) spironolactone 100 mg tablet 100 mg PO DAILY 03/22/23 03/22/23 Allergies Allergy/AdvReac Type Severity Reaction Status Date / Time No Known Allergies Allergy Verified 03/22/23 09:40 Review of Systems Review of Systems: CONSTITUTIONAL: Denies fever, chills, or sweats. EYES: Denies visual changes, redness, or discharge. ENT: Denies rhinorrhea, congestion, sore throat, or otalgia. CARDIOVASCULAR: Denies chest pain, palpitations, or edema. RESPIRATORY: Denies cough or dyspnea. GASTROINTESTINAL: Denies abdominal pain, nausea, vomiting, or diarrhea. GENITOURINARY: Denies dysuria or hematuria. SKIN: Denies rash or itching. MUSCULOSKELETAL: Denies back pain,right wrist pain reported throbbing pain, or myalgia.Bilateral knees with bruising,left knee with abrasions and mild swelling NEUROLOGIC: Denies headache, numbness, or weakness. PSYCHIATRIC: Denies anxiety or depression. All systems reviewed & are unremarkable except as noted in HPI and below PMFSH Past Medical History Medical History Allergies Anemia Asthma Hyperlipidemia Hypertension Secondary renal hyperparathyroidism Stage 3b chronic kidney disease Type 1 diabetes mellitus Vitamin D deficiency Surgical History Surgical History History of cholecystectomy History of hysteroscopy November 21, 2022 Previous section x2 Family History Family History Father Diabetes mellitus Cerebrovascular accident Mother Multiple sclerosis Grandparent Hypertension Heart problem Ovarian cancer Grandparent Hypertension Depression with anxiety Social History Social History Smoking status: Never smoker Alcohol intake: never Substance use: never Substance use type: does not use Lack of Transportation: No Lack of Food: Never True Concerned About Future Housing: No Difficulty Paying Gas/Electric Bills: No Difficulty Paying for Meds: No Currently Unemployed: No Education: High School Diploma/GED Living arrangements: with family Gender identity (if verbalized by the patient): Female Spiritual care concerns: No Comments At time of signature, agree with nursing past medical, surgical, social and family histo
== END 2023-03-22 10:19 | disposition home or self-care (01) ==
PROVIDERS: Emergency Provider Registered Nurse; PCP Family Medicine
DX: S63.501A Unspecified sprain of right wrist, initial encounter (principal); S66.911A Strain of unspecified muscle, fascia and tendon at wrist and hand level, right hand, initial encounter; S80.212A Abrasion, left knee, initial encounter; S80.01XA Contusion of right knee, initial encounter; E78.5 Hyperlipidemia, unspecified; I12.9 Hypertensive chronic kidney disease with stage 1 through stage 4 chronic kidney disease, or unspecified chronic kidney disease; E10.22 Type 1 diabetes mellitus with diabetic chronic kidney disease; N18.32 Chronic kidney disease, stage 3b; Z79.4 Long term (current) use of insulin; W10.1XXA Fall (on)(from) sidewalk curb, initial encounter
CPT/HCPCS: 73110; 99213; G0463

== ENCOUNTER 2023-11-13 09:34 | Outpatient (CLI) | payer OTHER, SELFPAY ==
[2023-11-13 19:31] LABS: Alanine Aminotransferase 18 U/L (6-35); Albumin Level 4.1 g/dL (3.5-5.1); Alkaline Phosphatase 63 U/L (38-126); Anion Gap 7 mmol/L (4-12); Aspartate Amino Transferase 77 U/L (14-36); Bilirubin,Total 0.6 mg/dL (0.2-1.3); Blood Urea Nitrogen 16 mg/dL (7-17); Carbon Dioxide 28 mmol/L (22-30); Chloride 101 mmol/L (98-107); Cholesterol 146 mg/dL (0-200); Estimated Glomerular Filt Rate 51; Glucose 205 mg/dL (65-110); HDL Direct 56 mg/dL; Potassium 4.5 mmol/L (3.4-5.0); Sodium 136 mmol/L (137-145); Triglycerides 53 mg/dL (<150)
[2023-11-13 19:36] LABS: Free T4 Free Thyroxine 1.57 ng/mL (0.78-2.19); Parathyroid Intact 69.7 pg/mL (7.5-53.5)
[2023-11-13 19:42] LABS: LDL Cholesterol Direct 77 mg/dL
[2023-11-13 20:02] LABS: Creatinine Urine 73.3 mg/dL; Total Protein Urine Random 11 mg/dL; Ur Ttl Prot Creatinine Ratio 0.15 mg/mg (0-0.20)
[2023-11-13 20:06] LABS: MALB Creatinine Ratio 29.9 mg/g (0-30); Microalbumin Urine Random 21.9 mg/L (0-16.7)
== END 2023-11-13 09:35 | disposition home or self-care (01) ==
PROVIDERS: PCP Family Medicine; Referring Provider Nurse Practitioner Family; Visit Provider Internal Medicine Nephrology
DX: E11.22 Type 2 diabetes mellitus with diabetic chronic kidney disease (principal); I12.9 Hypertensive chronic kidney disease with stage 1 through stage 4 chronic kidney disease, or unspecified chronic kidney disease; N18.31 Chronic kidney disease, stage 3a; N18.32 Chronic kidney disease, stage 3b; N25.81 Secondary hyperparathyroidism of renal origin; E55.9 Vitamin D deficiency, unspecified
CPT/HCPCS: 36415; 80053; 80061; 80069; 82043; 82306; 82570; 82607; 83970; 84156; 84439; 84443

== ENCOUNTER 2024-03-28 08:26 | Outpatient (CLI) | payer OTHER, SELFPAY ==
--- NOTE | ~2024-03-28 | MMUS_ITS ---
EXAMINATION: MM diagnostic eagle BI w irena, US breast RT limited HISTORY: Palpable right breast lump TECHNIQUE: 3-D tomosynthesis images of the breasts were performed and synthetic 2-D images were gener ated. CAD analysis was submitted and interpreted. High resolution limited right breast ultrasound was performed. COMPARISON: None BREAST PARENCHYMAL COMPOSITION:Dense: The breasts are heterogeneously dense, which may obscure small masses. FINDINGS: MAMMOGRAPHIC FINDINGS: There is an outer right subareolar breast mass asymmetric density measuring approximately 18 mm in di ameter. No suspicious abnormalities in the left breast seen. No suspicious microcalcifications in eit her breast. ULTRASOUND: Sonographic imaging of the right outer subareolar region demonstrates an area of focal prominent fibr oglandular tissue, but no discrete mass lesion. IMPRESSION: No definite evidence for malignancy. Findings most compatible with focal asymmetric fibroglandular t issue at the outer right subareolar region. Six-month follow-up right breast mammogram/sonogram recom mended to show stability. BI-RADS category 3, probably benign findings. Reviewed, dictated and finalized at [facility]. CTOR OF OPERATIONS SUPPORT IMPRESSION: No definite evidence for malignancy. Findings most compatible with focal asymm etric fibroglandular tissue at the outer right subareolar region. Six-month fol low-up right breast mammogram/sonogram recommended to show stability. BI-RADS category 3, probably benign findings.
== END 2024-03-28 08:27 | disposition home or self-care (01) ==
LOC: CHSIMG 08:28
PROVIDERS: PCP Nurse Practitioner Adult Health; Visit Provider Obstetrics & Gynecology Gynecology
DX: N63.10 Unspecified lump in the right breast, unspecified quadrant (principal)
CPT/HCPCS: 76642; 77062; 77066; G0279

== ENCOUNTER 2024-05-10 11:53 | Outpatient (CLI) | payer OTHER, SELFPAY ==
[2024-05-10 12:34] LABS: Creatinine Urine 97.8 mg/dL; Total Protein Urine Random 28 mg/dL; Ur Ttl Prot Creatinine Ratio 0.29 mg/mg (0-0.20)
[2024-05-10 12:37] LABS: Albumin Level 3.9 g/dL (3.5-5.1); Anion Gap -1 mmol/L (4-12); Blood Urea Nitrogen 15 mg/dL (7-17); Calcium 8.7 mg/dL (8.4-10.2); Carbon Dioxide 30 mmol/L (22-30); Chloride 108 mmol/L (98-107); Estimated Glomerular Filt Rate 47; Glucose 106 mg/dL (65-110); Potassium 4.3 mmol/L (3.4-5.0); Sodium 137 mmol/L (137-145)
== END 2024-05-10 11:54 | disposition home or self-care (01) ==
LOC: ANHLAB 11:54
PROVIDERS: PCP Nurse Practitioner Adult Health; Visit Provider Internal Medicine Nephrology
DX: I12.9 Hypertensive chronic kidney disease with stage 1 through stage 4 chronic kidney disease, or unspecified chronic kidney disease (principal); N18.31 Chronic kidney disease, stage 3a; E11.22 Type 2 diabetes mellitus with diabetic chronic kidney disease
CPT/HCPCS: 36415; 80069; 82570; 84156

== ENCOUNTER 2024-09-03 07:45 | Outpatient (CLI) | payer OTHER, SELFPAY ==
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
--- OUTSIDE RECORDS SUMMARY | 2024-09-03 07:49 | XMS_ITS | Clinical Summary ---
Author Organization [facility] Address [address] [place] [address] Phone Care Team Providers Care Package Line Operator Name Role Phone Danyell Adam NP Primary Care Provider [phone] Allergies No known active allergies Social History Tobacco Use Types Packs/Day Years Used Date Smoking Tobacco: Never Assessed Comments No Sex and Gender Information Value Date Recorded Sex Assigned at Not on file Legal Sex Female 3:01 PM APPROVER Gender Identity Not on file Sexual Orientation Not on file Plan of Treatment Health Maintenance Due Date Last Done Comments DIABETES ANNUAL FOOT EXAM 2006 DIABETES ANNUAL RETINAL EXAM 2006 DIABETES MICROALBUMIN ANNUAL SCREEN 2006 LDL CHOLESTEROL ANNUAL 2006 HEPATITIS B VACCINES (1 of 3 - 19+ 3-dose series) 2007 HPV/Cotest (21-29) 2009 CERVICAL CANCER SCREENING 2018 HPV/Cotest (30-65) 2018 PAP SMEAR 2018 DIABETES HBA1C Q 6 MONTHS 06/29/20182017, 09/29/2015 INFLUENZA VACCINE (#1) 2023 7, 04/07/2014, 03/02/2010 DTAP/TDAP/TD VACCINES (2 - T d or Tdap) 11/15/2027 11/14/2017, 07/07/2007 HPV VACCINES Aged Out No longer eligi ble based on patient's age to complete this topic Procedures Procedure Name Priority Date/Time Associated Diagnosis Comments HEMOGLOBIN A1C Routine 09/29/2015 2:22 PM CDT Pre-existing type 1 diabetes mellitus in in third trimester from Last 3 Months or Most Recently Relevant to Health Maintenance Results * (ABNORMAL) HEMOGLOBIN A1C (09/29/2015 2:22 PM CDT) HEMOGLOBIN A1C 6.3(H) 4.0 - 6.0 % 09/29/2015 5:06 PM CDT [facility] Comment:Note: Effective as o f 05/29/2014 a new methodology, Turbidimetric inhibition immunoassay (TINIA),has been implemented. EST. AVG GLUCOSE, A1C 134 mg/dL 09/29/2015 5:06 PM CDT [facility] Blood Venipuncture - L ab Collect / Unknown 09/29/2015 2:22 PM CDT 09/29/2015 2:39 PM CDT us Elan Barnes MD CHEMISTRY ORDERABLES Final Res ult [facility] [employer] [facility] CLIA# [id number] [address] [place] [address] from Last 3 Months or Most Recently Relevant to Health Maintenance Insurance [facility] P[facility]ERR[facility] Care Teams Package Line Operator Relationship Specialty [place] [phone] [phone] PCP - General NURSE PRACTITIONER 06/17/15
--- OUTSIDE RECORDS SUMMARY | 2024-09-03 07:49 | XMS_ITS | Encounter Summary ---
Author Organization [facility] Address [address] [place] [address] Care Team Providers Care Sweatband Cutting Machine Operator Name Role Phone Danyell Adam SOFTWARE BUILD ENGINEER-AFTER SCHOOL PROGRAM DIRECTOR Primary Care Provide r Reason for Visit * Reason Onset Date Comments MEDICATION REFILL 12/28/2017 Encounter Details Date Type Department Care Team (Late st Contact Info) Description 12/28/2017 Refill [facility] [address] [place] [address] Emely Montes MD [address] [address] MEDICATION REFILL Social History Tobacco Use Types Packs/Day Years Used Date Smoking Tobacco: Never Smokeless Tobacco: Never Alcohol Use Standard Drinks/Week Comments No 0 (1 standard drink = 0.6 oz pur e alcohol) not during Comments Yes Sex and Gender Information Value Date Recorded Sex Assigned at Not on file Legal Sex Female 5:59 PM CDT Gender Identity Not on file Sexual Orientation Not on file 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 Answer Date of Assessment Author No 12/27/2017 5:02 PM CDT Lorna Ansari, RN * Is person blind or have serious difficulty seeing? Answer Date of Assessment Author No 12/27/2017 5:02 PM Lorna Allison RN * Does person have serious difficulty walking/climbing stairs? Answer Date of Assessment Author No 12/27/2017 5:02 PM Lorna Allison RN * Does person have difficulty dressing/bathing? Answer Date of Assessment Author No 12/27/2017 5:02 PM Lorna Allison RN * Does person have difficulty doing errands alone? Answer Date of Assessment Author No 12/27/2017 5:02 PM Lorna Allison RN documented as of this encounter Mental Status * Does person have difficulty concentrating/remembering/making decisions? Answer Entry Date Author No 12/27/2017 5:02 PM Lorna Allison RN documented in this encounter Plan of Treatment Not on file documented as of this encounter Visit Diagnoses Not on filedocumented in this encounter Care Teams Sweatband Cutting Machine Operator Relationship Specialty Start Date End Date Danyell Adam, SOFTWARE BUILD ENGINEER-AFTER SCHOOL PROGRAM DIRECTOR PCP - General 08/18/17 documented as of this encounter
--- OUTSIDE RECORDS SUMMARY | 2024-09-03 07:49 | XMS_ITS | Referral Summary ---
Author Organization [facility] Address [address] [address] Phone Care Team Providers Care Manuscript Reader Name Role Phone Savage Didi PHILIPPE Primary Care Provider [phone] Allergies No known active allergies Medications albuterol HFA (VENTOLIN HFA) 90 mcg/actuation inhaler Inhale 2 puffs every 4 (four) hours as needed for wheezing or shortness of breath 8 g 1 01/03/20 19 Active glucagon (glucagon) 1 mg kitIndications:Typ e 1 diabetes mellitus with hyperglycemia (HCC) Use as directed for low blood sugar. 1 kit 11 01/09/20 19 Active blood glucose diagnostic stripIndications:T ype 1 diabetes mellitus with hyperglycemia (HCC) Contour next glucose meterTest blood sugars 7 times a day 700 each 1 06/20/19 20 Active pen needle, diabetic (BD Ultra-Fine Mini Pen Needle) 31 gauge x 3/16 needleIndications: Type 1 diabetes mellitus with other diabetic kidney complication (HCC) USE TO INJECT INSULIN 5 TIMES DAILY 450 each 10/14/19 20 Active HumaLOG KwikPen Insulin 200 unit/mL (3 mL) insulin penIndications:Typ e 1 diabetes mellitus with hyperglycemia (HCC) INJECT SUBCUTANEOUSLY 0.1-0.15 ML (20-30 UNITS TOTAL) 3 TIMES DAILY WITH MEALS 27 pen 3 01/06/20 20 Active Dexcom G6 Strategic Marketing Specialist miscIndications:Ty pe 1 diabetes mellitus with hyperglycemia (HCC) Use as directed Dx:E10.65 insulin dependent 1 each 01/06/20 20 Active Dexcom G6 Sensor deviceIndications: Type 1 diabetes mellitus with hyperglycemia (HCC) Change sensor every 10 days Dx:E10.65 insuoin dependent 3 Device 13 01/06/20 20 Active Dexcom G6 Transmitter deviceIndications: Type 1 diabetes mellitus with hyperglycemia (HCC) Use as directed DX:E10.65 insulin dependent 1 Device 3 01/06/20 20 Active atorvastatin (LIPITOR) 20 mg tablet Take 1 tablet (20 mg total) by mouth daily 90 tablet 3 01/15/20 20 Active amLODIPine (NORVASC) 10 mg tablet Take 1 tablet (10 mg total) by mouth daily 90 tablet 3 01/15/20 20 Active losartan (COZAAR) 100 mg tablet Take 1 tablet by mouth once daily 90 tablet 06/15/19 21 Active insulin degludec (TRESIBA) 200 unit/mL (3 mL) pen for injection Inject 0.3 mL (60 Units total) under the skin daily 27 mL 1 08/26/19 21 Active HYDROcodone-acetam inophen (NORCO) 5-325 mg per tabletIndications: Pain Take 1 tablet by mouth every 6 (six) hours as needed for pain for up to 12 doses 12 tablet 04/09/20 24 Active ondansetron ODT (ZOFRAN-ODT) 4 mg disintegrating tablet Take 1 tablet (4 mg total) by mouth every 8 (eight) hours as needed for nausea or vomiting 20 tablet 04/09/20 24 Active Active Problems Problem Noted Date Diagnosed Date 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 Continue statin therapy Assessment & Plan (02/13/2018 3:19 PM CDT): High LDL in past Nutrition counseling proved to pt Recheck fasting lipid panel before next visit Family history of multiple sclerosis 09/18/2017 Family history of stroke or transient ischemic attack in father 09/18/2017 Mild intermittent asthma without complication Overview (02/06/2018): Overview: No attack in years Hx of preeclampsia, prior , currently p regnant 07/28/2017 Overview (02/06/2018): Overview: Preeclampsia in a prior DM type 1 (diabetes mellitus, type 1) 07/28/2017 Overview (09/26/2018): Overview: Dx at age 17: Class F, Hypertension [...] 48/48 Novolog Will transition to carb counting Assessment & Plan (12/10/2019 11:17 AM CDT): A1c 8.3. Continue with current plan however instructed on how to adjust Basal and prandial dose based on wt loss progress. Will order Dexcom and Omnipod. Assessment & Plan (01/08/2019 2:57 PM CDT): A1c is 10.1. Not eating full meals at this time with reports of overnight lows. Until back to eating full meals in next few days, advised to reduce the Basaglar to 25 units bid Reduce prandial dose Humalog to 10 units, continue with correction scale. Education provided on CGM and insulin pump therapy. Suspect that she has strong Diana phenomenon and would benefit from multiple basal rates. CGM will be reordered d/t hx of severe hypoglycemia and unawareness. Needs alerts available to prevent lows. She is agreeable to starting Omnipod insulin pump. This will be ordered. Once CGM is worn for 1-2 weeks, we will evaluate and adjust insulin plan. Assessment & Plan (12/05/2018 12:57 PM CDT): Diabetes is worsening. A1c today - 10.7 % Continue Lantus / Basaglar 30 units SQ twice daily Increase Humalog 20 units Three times with meals 151 - 200 + 2 units 201 -250 + 4 units 251 - 300 + 6 units 301 -350 + 8 units Over 351 + 10 units - discussed with pt about CGM and insulin pump - Pt willing to get on DEXCOM G 6 But not interested to get on insulin pump - follow up in 4 weeks with BS log Continue current treatment regimen. Reminded to bring in blood sugar diary at next visit. Dietary recommendations for ADA diet. Regular aerobic exercise. Discussed ways to avoid symptomatic hypoglycemia. Discussed sick day management. Discussed foot care. Reminded to get yearly retinal exam. Diabetes will be reassessed in 1 month. Foraminal stenosis of lumbar region 05/05/2017 Overview (02/06/2018): Overview: As above. Assessment & Plan (05/05/2017 8:32 PM AVIATION ELECTRONIC WARFARE OPERATOR): As above. 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 MRI 04/18/17 1. 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 2. OTHERWISE NORMAL MRI OF THE LUMBAR SPINE. Assessment & Plan (05/05/2017 8:32 PM AVIATION ELECTRONIC WARFARE OPERATOR): Ongoing despite conservative therapy with medication and physical therapy. Will refer to Dr. Garcia for evaluation. Assessment & Plan (04/06/2017 8:42 PM AVIATION ELECTRONIC WARFARE OPERATOR): No relief with conservative therapy along with Physical therapy. Will arrange MRI of L/S spine. Hypertension associated with diabetes 04/06/2017 Overview (02/06/2018): Overview: Hypertension is uncontrolled. Dietary sodium restriction. Regular aerobic exercise. Ambulatory blood pressure monitoring. Losartan 100mg daily. Assessment & Plan (12/10/2019 11:13 AM CDT): Hold nifedipine for 2 days, check home BP during this time. Then restart. If flushing resumes, contact PCP Assessment & Plan (01/08/2019 11:14 AM CDT): Controlled on current medications. Continue plan. Assessment & Plan (12/05/2018 12:58 PM CDT): Hypertension is improving with treatment., managed by PCP Continue current treatment regimen. Dietary sodium restriction. Weight loss. Regular aerobic exercise. Continue current medications. Blood pressure will be reassessed at the next regular appointment. Assessment & Plan (02/13/2018 3:18 PM CDT): Hypertension is improving with treatment., managed by PCP Continue current treatment regimen. Dietary sodium restriction. Weight loss. Regular aerobic exercise. Continue current medications. Blood pressure will be reassessed at the next regular appointment. Assessment & Plan (04/06/2017 8:44 PM AVIATION ELECTRONIC WARFARE OPERATOR): Hypertension is uncontrolled. . Dietary sodium restriction. Regular aerobic exercise. Ambulatory blood pressure monitoring. Plan to start Losartan 100mg daily. Blood pressure will be reassessed in 2 weeks. Chronic cholecystitis 01/12/2016 Overview (08/13/2016): Chronic cholecystitis Infection of section or perineal wound 01/12/2016 Overview (08/13/2016): Wound infection following section, Biliary colic 01/12/2016 Overview (08/13/2016): Biliary colic Morbid obesity with BMI of 40.0-44.9, adult /10/2015 Overview (08/13/2016): Morbid obesity with BMI of 40.0-44.9, adult Assessment & Plan (12/10/2019 10:17 AM CDT): Importance of following diet and exercising discussed. Assessment & Plan (01/08/2019 11:14 AM CDT): Importance of following diet and exercising discussed. Assessment & Plan (12/05/2018 12:58 PM CDT): Obesity is worsening. Discussed the patient's BMI. The BMI is above average; BMI management plan is completed. General weight loss/lifestyle modification strategies discussed (elicit support from others; identify saboteurs; non-food rewards, etc). Behavioral treatment: stress management. Diet interventions: moderate (500 kCal/d) deficit diet. Informal exercise measures discussed, e.g. taking stairs instead of elevator. Regular aerobic exercise program discussed. Assessment & Plan (02/13/2018 3:18 PM CDT): Obesity is worsening. Discussed the patient's BMI. The BMI is above average; BMI management plan is completed. General weight loss/lifestyle modification strategies discussed (elicit support from others; identify saboteurs; non-food rewards, etc). Behavioral treatment: stress management. Diet interventions: moderate (500 kCal/d) deficit diet. Informal exercise measures discussed, e.g. taking stairs instead of elevator. Regular aerobic exercise program discussed. Assessment & Plan (05/05/2017 8:33 PM AVIATION ELECTRONIC WARFARE OPERATOR): Obesity is unchanged. Discussed the patient's BMI. The BMI is above average; BMI management plan is completed. General weight loss/lifestyle modification strategies discussed (elicit support from others; identify saboteurs; non-food rewards, etc). Assessment & Plan (04/06/2017 8:45 PM AVIATION ELECTRONIC WARFARE OPERATOR): Obesity is unchanged. Discussed the patient's BMI. The BMI is above average; BMI management plan is completed. General weight loss/lifestyle modification strategies discussed (elicit support from others; identify saboteurs; non-food rewards, etc). Assessment & Plan (03/19/2017 8:32 PM AVIATION ELECTRONIC WARFARE OPERATOR): Obesity is essentially stable. . Discussed the patient's BMI. The BMI is above average; BMI management plan is completed. General weight loss/lifestyle modification strategies discussed (elicit support from others; identify saboteurs; non-food rewards, etc). Resolved Problems Problem Noted Date Diagnosed Date Resolved Date heart rate deceleratio ns affecting management of mother 12/27/2017 02/06/2018 Obesity affecting 09/17/2017 02/06/2018 Overview (02/06/2018): Overview: Pre- BMI 38 or 40 depending on reported weight. Type 1 diabetes mellitus during 09/17/2017 02/13/2018 Overview (02/06/2018): Overview: Class F; A1c 7.6% on 07/14/17. Proteinuria affecting 07/28/2017 02/06/2018 Overview (02/06/2018): Overview: Saw [facility]. 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 A1c today - 6.3 % - advised Pt currently her BS are running good on current insulin regimen - but when pt starts to exercise and do low carb diet , advised to cut back on lantus ( by 5 to 10 units ) and novolog ( by 3 to 5 units) insulin - advised Pt to send in BS log and also call us if having trouble with low or high BS - also discussed with pt about how to manage her BS when she starts exercising - discussed with pt about CGM and insulin pump - pt deferred at this time, but strongly advised to consider CGM in future - follow up in 3 months Continue current treatment regimen. Reminded to bring in blood sugar diary at next visit. Dietary recommendations for ADA diet. Regular aerobic exercise. Discussed ways to avoid symptomatic hypoglycemia. Discussed sick day management. Discussed foot care. Reminded to get yearly retinal exam. Diabetes will be reassessed in 3 months. Assessment & Plan (04/06/2017 8:43 PM AVIATION ELECTRONIC WARFARE OPERATOR): Diabetes is uncontrolled. Hgb A1c . Dietary recommendations for ADA diet. Regular aerobic exercise. Discussed ways to avoid symptomatic hypoglycemia. Discussed sick day management. Discussed foot care. Reminded to get yearly retinal exam. Medication changes per orders. plan to increase Novolog as directed. Encouraged to call office next week with readings. Diabetes will be reassessed in 3 months. Assessment & Plan (03/19/2017 8:31 PM AVIATION ELECTRONIC WARFARE OPERATOR): Diabetes is uncontrolled. Hgb A1c 10.1. Reminded to bring in blood sugar diary at next visit. Dietary recommendations for ADA diet. Discussed ways to avoid symptomatic hypoglycemia. Discussed sick day management. Discussed foot care. Reminded to get yearly retinal exam. Diabetes will be reassessed in 1 month. Poorly controlled diabetes mellitus 12/26/2008 09/26/2018 Immunizations Immunization Administration Dates Next Due Influenza, Quadrivalent, Spl it, Preservative Free, Intramuscular 01/15/2020,02/06/2018,04/06/2017 Influenza, Split 03/02/2010 Influenza, Trivalent, Adjuva nted, Intramuscular 05/08/2011 Influenza, Trivalent, IM (MDV) 04/07/2014 Influenza, Trivalent, Preser vative Free, Intramuscular 02/12/2015,04/20/2014 Influenza, Trivalent, Split, Preservative Free, Intradermal 03/02/2010 Influenza, Unspecified 02/13/2017,03/02/2010 MMR 11/14/2015 TD Preservative Free 07/07/2007 Td, adsorbed 05/08/2008 Tdap 11/14/2017 Social History Tobacco Use Types Packs/Day Years Used Date Smoking Tobacco: Never Smokeless Tobacco: Never Alcohol Use Standard Drinks/Week Comments No 0 (1 standard drink = 0.6 oz pur e alcohol) PHQ-2 Answer Date Recorded PHQ-2 Total Score (If total score is 3 or more points, staff should administer the PHQ-9) 0 01/15/2020 Personal Safety Answer Date Recorded Have you ever been in or are you currently in a harmful physical or emotional relationship or is someone making you feel afraid or unsafe? 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 Not on file Not on file Not on piter e Last Filed Vital Signs Vital Sign Reading Time Taken Comments Blood Pressure 120/74 04/09/2024 10:54 AM AVIATION ELECTRONIC WARFARE OPERATOR Pulse 90 04/09/2024 10:54 AM AVIATION ELECTRONIC WARFARE OPERATOR Temperature 36.8 C (98.3 F) 04/09/2024 10:54 AM AVIATION ELECTRONIC WARFARE OPERATOR Respiratory Rate 14 04/09/2024 10:54 AM AVIATION ELECTRONIC WARFARE OPERATOR Oxygen Saturation 100% 04/09/2024 10:54 AM AVIATION ELECTRONIC WARFARE OPERATOR Inhaled Oxygen Concentration - - Weight 88.5 kg (195 lb) 04/09/2024 9:09 AM AVIATION ELECTRONIC WARFARE OPERATOR Height 172.7 cm (5' 8 ) 04/09/2024 9:09 AM AVIATION ELECTRONIC WARFARE OPERATOR Body Mass Index 29.65 04/09/2024 9:09 AM AVIATION ELECTRONIC WARFARE OPERATOR Plan of Treatment Not on file Procedures Procedure Name Priority Date/Time Associated Diagnosis Comments EGFR STAT 04/09/2024 9:17 AM AVIATION ELECTRONIC WARFARE OPERATOR LIPID PANEL Routine 12/10/2019 9:32 AM CDT Type 1 diabetes mellitus with hyperglycemia (HCC) ALBUMIN CREATININE RATIO, URINE Routine 12/10/2019 9:32 AM CDT Type 1 diabetes mellitus with hyperglycemia (HCC) THYROID FUNCTION CASCADE Routine 12/10/2019 9:32 AM CDT Type 1 diabetes mellitus with hyperglycemia (HCC) POCT HEMOGLOBIN A1C Routine 12/10/2019 9 :14 AM CDT Type 1 diabetes mellitus with hyperglycemia (HCC) DIABETIC EYE EXAM Routine 10/30/2019 HM PAP SMEAR WITH HPV Routine 06/06/2018 from Last 3 Months or Most Recently Relevant to Health Maintenance Results * eGFR (04/09/2024 9:17 AM AVIATION ELECTRONIC WARFARE OPERATOR) eGFR 66 >=60 mL/min/1. 73 m2 Comment: Interpretive Data Reference Interval Normal >/= 90 mL/min/1.73m2 Mildly decreased* 60 - 89 mL/min/1.73m2 Mildly to moderately decreased 45 - 59 mL/min/1.73m2 Moderately to severely decreased 30 - 44 mL/min/1.73m2 Severely decreased 15 - 29 mL/min/1.73m2 Kidney Failure < 15 mL/min/1.73m2 *Relative to young adult level Estimated glomerular filtration rate is determined by the 2020 CKD-EPI equation recommended by the National Kidney Foundation (A Unifying Approach to GFR Estimation: Recommendations of the NKF-ASK Task Force on Reassessing the Inclusion of Race in Diagnosing Kidney Disease, JASN 2020). The CKD-EPI equation should not be used for patients with unstable renal function and has not been validated in children and those over 70. Current interpretive data was last reviewed 2021. Blood 04/09/2024 9:17 AM AVIATION ELECTRONIC WARFARE OPERATOR 04/09/2024 9:19 AM AVIATION ELECTRONIC WARFARE OPERATOR Key Villagomez MD LAB BLOOD ORDERABLES Rebecca l Result [facility] [place] [address] * TSH reflex to free T4 (12/10/2019 9:32 AM CDT) TSH 1.83 0.30 - 4.20 mcIUnit/mL СВЕТЛАНА Blood specimen (specimen) 12/10/2019 9:32 AM CDT 12/10/2019 1:56 PM CDT us Nancy Mcfarland NP LAB BLOOD ORDERABLES Final R esult [facility] [place] [id number] [place] [address] * (ABNORMAL) Albumin Creatinine Ratio, Urine (12/10/2019 9:32 AM CDT) Albumin Ur 313.1 mg/L СВЕТЛАНА Comment: Interpretive Data No reference range established. Current interpretive data was last revised 2018. Creatinine Ur 29.0 mg/dL СВЕТЛАНА Comment: Interpretive Data No reference range established. Current interpretive data was last revised 2018. Albumin Creatinine Ratio, Ur 1,080(H) 1 - 29 mg/g СВЕТЛАНА Urine 12/10/2019 9:32 AM CDT 12/10/2019 1:56 PM CDT Nancy Mcfarland HELPER MARBLE FINISHER LAB URINE ORDERABLES Final R esult [facility] [address] [place] [address] * (ABNORMAL) Lipid panel (12/10/2019 9:32 AM CDT) Cholesterol 253(H) 30 - 199 mg/dL СВЕТЛАНА Comment: Interpretive Data Ages < or = 19 years Acceptable: <170 mg/dL Borderline high: 170-199 mg/dL High: >or= 200 mg/dL Ages > or = 20 years Desirable: <200 mg/dL Borderline high: 200-239 mg/dL High: >or= 240 mg/dL Literature References: 1. Expert Panel on Integrated Guidelines for Cardiovascular Health and Risk Reduction in Children and Adolescents. Pediatrics 2011;128:S213 2. NCEP Expert Panel. Circulation 2004;110:227 Current Interpretive Data was last revised on 2017. Triglycerides 202(H) <=149 mg/dL СВЕТЛАНА Comment: Interpretive Data Ages < or = 9 years Acceptable: <75 mg/dL Borderline high: 75-99 mg/dL High: >or= 100 mg/dL Ages 10 to 20 years Acceptable: <90 mg/dL Borderline high: 90-129 mg/dL High: >or= 130 mg/dL Ages > or = 20 years Desirable: <150 mg/dL Borderline high: 150-199 mg/dL High: 200-499 mg/dL Very high: >or= 499 mg/dL Literature References: 1. Expert Panel on Integrated Guidelines for Cardiovascular Health and Risk Reduction in Children and Adolescents. Pediatrics 2011;128:S213 2. NCEP Expert Panel. Circulation 2004;110:227 Current Interpretive Data was last revised on 2017. HDL 53 >=40 mg/dL СВЕТЛАНА Comment: Interpretive Data Ages < or = 19 years Acceptable: >45 mg/dL Borderline low: 40-45 mg/dL Low: <40 mg/dL Ages > or = 20 years Desirable: >or= 60 mg/dL Low: <40 mg/dL Literature References: 1. Expert Panel on Integrated Guidelines for Cardiovascular Health and Risk Reduction in Children and Adolescents. Pediatrics 2011;128:S213 2. NCEP Expert Panel. Circulation 2004;110:227 Current Interpretive Data was last revised on 2017. LDL, calculated 160(H) <=129 mg/dL СВЕТЛАНА Comment: Interpretive Data Ages < or = 19 years Acceptable: <110 mg/dL Borderline high: 110-129 mg/dL High: >or= 130 mg/dL Ages > or = 20 years Optimal: <100 mg/dL Near optimal: 100-129 mg/dL Borderline high: 130-159 mg/dL High: >160 mg/dL Literature References: 1. Expert Panel on Integrated Guidelines for Cardiovascular Health and Risk Reduction in Children and Adolescents. Pediatrics 2011;128:S213 2. NCEP Expert Panel. Circulation 2004;110:227 Current Interpretive Data was last revised on 2017. Non-HDL Cholesterol 200 mg/dL СВЕТЛАНА Comment: Interpretive Data Ages < or = 19 years Acceptable: <120 mg/dL Borderline high: 120-144 mg/dL High: >145 mg/dL Ages > or = 20 years When triglycerides are >200 mg/dL, Non-HDL cholesterol is a secondary target of therapy with treatment goals that are 30 mg/dL greater than the LDL cholesterol target. Literature References: 1. Expert Panel on Integrated Guidelines for Cardiovascular Health and Risk Reduction in Children and Adolescents. Pediatrics 2011;128:S213 2. NCEP Expert Panel. Circulation 2004;110:227 Current Interpretive Data was last revised on 2017. Chol/HDL ratio 5 СВЕТЛАНА Blood specimen (specimen) 12/10/2019 9:32 AM CDT 12/10/2019 1:56 PM CDT Nancy Mcfarland NP LAB BLOOD ORDERABLES Final R esult [facility] [place] [address] [place] [address] * (ABNORMAL) POCT hemoglobin A1c (12/10/2019 9:14 AM CDT) Hemoglobin A1C, POC 8.3(A) 4.0 - 7.0 Blood specimen (specimen) 12/10/2019 9:14 AM CDT Nancy Mcfarland NP POINT OF CARE TEST ORDERABLE S Final Result * (ABNORMAL) Diabetic Eye Exam (10/30/2019) Historical Provider HEALTH MAINTENANCE Final Result * HM PAP SMEAR WITH HPV (06/06/2018) HM Pap smear Normal Historical Provider HEALTH MAINTENANCE Final Result from Last 3 Months or Most Recently Relevant to Health Maintenance Insurance [employer] [facility] ACC[employer] [facility] [employer] Care Teams Manuscript Reader Relationship Specialty Start Date End Date Didi Wan NP [address] [place] [address] PCP - General Nurse Practitioner 04/09/24
--- OUTSIDE RECORDS SUMMARY | 2024-09-03 07:49 | XMS_ITS | Clinical Summary ---
Author Organization [facility] dunn Address [address] [place] [address] Phone Care Team Providers Care Command Center Analyst Name Role Phone Ivan Blunt DO Primary Care Provider [phone] Allergies No known active allergies Medications albuterol HFA (PROVENTIL HFA) 108 (90 Base) MCG/ACT inhaler Inhale 2 puffs 8 Active atorvastatin (LIPITOR) 20 MG tablet Take 20 mg by mouth 1 (one) time each day 1 Active amLODIPine (NORVASC) 10 MG tablet Take 10 mg by mouth daily 0 Active cholecalcifero l (VITAMIN D-3) 50 MCG (1999) capsule 1 Active Continuous Blood Gluc Die Assembler (Dexcom G6 Die Assembler) device USE TO CHECK BLOOD SUGAR 1 Active Continuous Blood Gluc Sensor (Dexcom G6 Sensor) misc REPLACE SENSOR EVERY 10 DAYS 1 Active Continuous Blood Gluc Transmit (Dexcom G6 Transmitter) misc REPLACE TRANSMITTER EVERY 90 DAYS 1 Active dicyclomine (BENTYL) 20 MG tablet Take 20 mg by mouth 3 (three) times a day if needed 1 Active Glucagon, rDNA, (Glucagon Emergency) 1 MG kit INJECT 1 MG SUBCUTANEOUSLY EVERY 20 MINUTES NEEDED FOR HYPOGLYCEMIA UNTIL TARGET BLOOD SUGAR ATTAINED 1 Active insulin aspart (NovoLOG) 100 UNIT/ML injection 25 units breakfast, 18 units lunch, 20 units dinner 8 Active insulin degludec (Tresiba FlexTouch) 200 UNIT/ML injection Inject 60 Units under the skin daily 1 Active Basaglar KwikPen 100 UNIT/ML injection INJECT 30 UNITS SUBCUTANEOUSLY TWICE DAILY 1 Active losartan (COZAAR) 100 MG tablet Take 100 mg by mouth 1 (one) time each day 1 Active metFORMIN (GLUCOPHAGE) 500 MG tablet TAKE 1 TABLET BY MOUTH TWICE DAILY FOR 90 DAYS 1 Active Progesterone 100 MG capsule 1 Active spironolactone (ALDACTONE) 100 MG tablet Take 100 mg by mouth 1 (one) time each day 1 Active Contour Next Test test strip 1 Active diclofenac (VOLTAREN) 75 MG EC tablet TAKE 1 TABLET TWICE DAILY WITH MEAL 2 Active Insulin Disposable Pump (Omnipod 5 G6 Intro, Gen 5,) kit 2 Active Insulin Lispro 100 UNIT/ML solution INJECT 100 UNITS SUBCUTANEOUSLY DAILY. UP TO 160 UNITS DAILY VIA INSULIN PUMP 2 Active Active Problems Problem Noted Date Diagnosed Date Proteinuria due to type 1 diabetes mellitus 11/07 Overview (12/29/2020): Last Assessment & Plan: strongly advised to work on tighter glycemic control and BP control Asthma 09/26/2018 Hyperlipidemia due to type 1 diabetes mellitus 1 Overview (12/29/2020): Last Assessment & Plan: Will check lipid panel FH: Cardiovascular disease 09/18/2017 FH: Multiple sclerosis 09/18/2017 Maternal obesity complicatin g , childbirth and the puerperium, antepartum 09/17/2017 Overview (12/29/2020): Pre- BMI 38 or 40 depending on reported weight. Mild intermittent asthma 08/14/2017 Overview (12/29/2020): No attack in years Overview: No attack in years History of pre-eclampsia 07/28/2017 Overview (12/29/2020): Preeclampsia in a prior Overview: Preeclampsia in a prior Proteinuria 07/28/2017 Overview (12/29/2020): Saw [facility] nephrology. 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 Dx at age 17: Class F, Hypertension [...] 48/48 Novolog Will transition to carb counting Overview: Dx at age 17: Class F, [...] 48/48 Novolog Will transition to carb counting Last Assessment & Plan: A1c 8.3. Continue with current plan however instructed on how to adjust Basal and prandial dose based on wt loss progress. Will order Dexcom and Omnipod. Stenosis of lumbar vertebral foramen 05/05/2017 Overview (12/29/2020): As above. Overview: As above. Last Assessment & Plan: As above. Chronic low back pain 04/06/2017 Overview (12/29/2020): Last Assessment & Plan: Ongoing despite conservative therapy with medication and physical therapy. MRI 04/18/17 1. 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 2. OTHERWISE NORMAL MRI OF THE LUMBAR SPINE. Overview: Last Assessment & Plan: Ongoing despite conservative therapy with medication and physical therapy. MRI 04/18/17 1. 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 2. OTHERWISE NORMAL MRI OF THE LUMBAR SPINE. Last Assessment & Plan: Ongoing despite conservative therapy with medication and physical therapy. Will refer to Dr. Garcia for evaluation. Hypertensive disorder 04/06/2017 Overview (12/29/2020): Hypertension is uncontrolled. Dietary sodium restriction. Regular aerobic exercise. Ambulatory blood pressure monitoring. Losartan 100mg daily. Overview: Hypertension is uncontrolled. Dietary sodium restriction. Regular aerobic exercise. Ambulatory blood pressure monitoring. Losartan 100mg daily. Last Assessment & Plan: Hold nifedipine for 2 days, check home BP during this time. Then restart. If flushing resumes, contact PCP Biliary colic 01/12/2016 Overview (12/29/2020): Biliary colic Body mass index 40+ - severely obese 01/12/2016 Overview (12/29/2020): Morbid obesity with BMI of 40.0-44.9, adult Last Assessment & Plan: Importance of following diet and exercising discussed. Chronic cholecystitis 01/12/2016 Overview (12/29/2020): Chronic cholecystitis infection 01/12/2016 Overview (12/29/2020): Wound infection following section, Immunizations Immunization Administration Dates Next Due Influenza (IM) Preservative Free 02/12/2015,04/07 Influenza Split 03/02/2010 Influenza Split Preservative Free ID 03/02/2010 Influenza TIV (IM) 04/07/2014 Influenza Trivalent Adjuvanted 05/08/2011 Influenza, Injectable, Quadrivalent 05/08/2011,0 05/08/2008 Influenza, Injectable, Quadr ivalent, Preservative Free 01/15/2020,02/06/2018,04/06/2017 Influenza, Unspecified 02/13/2017,03/02/2010 MMR 11/14/2015 Sars-cov-2, Unspecified 08/26/2020 TD Preservative Free 07/07/2007 Td 05/08/2008 Tdap 11/14/2017 Family History Medical History Relation Comments Diabetes mellitus Father Stroke Father Kidney disease Maternal Grandmother Multiple sclerosis Mother Relation Status Comments Father Maternal Grandmother Mother Social History Tobacco Use Types Packs/Day Years Used Date Smoking Tobacco: Never Smokeless Tobacco: Never Alcohol Use Standard Drinks/Week Comments Never 0 (1 standard drink = 0.6 oz pur e alcohol) Comments Unknown Sex and Gender Information Value Date Recorded Sex Assigned at Not on file Legal Sex Female 8:13 AM MDT Gender Identity Not on file Sexual Orientation Not on file Last Filed Vital Signs Vital Sign Reading Time Taken Comments Blood Pressure 134/76 11/03/2021 9:40 AM CDT Pulse - - Temperature 36.7 C (98.1 F) 11/03/2021 9:40 AM CDT Respiratory Rate 18 11/03/2021 9:40 AM CDT Oxygen Saturation - - Inhaled Oxygen Concentration - - Weight 151 kg (332 lb) 11/03/2021 9:40 AM CDT Height 172.7 cm (5' 8 ) 11/03/2021 9:40 AM CDT Body Mass Index 50.48 11/03/2021 9:40 AM CDT Plan of Treatment Health Maintenance Due Date Last Done Comments Influenza Vaccine (Season Ended) 2025 01/15/2020, 02/06/2018, 04/06/2017, Additional history exists Insurance [facility] Care Teams Command Center Analyst Relationship Specialty Start Date End Date Ivan Blunt DO [address] [place] [address] PCP - General Family Medicine 10/26/20
--- OUTSIDE RECORDS SUMMARY | 2024-09-03 07:49 | XMS_ITS | Clinical Summary ---
Author Organization [facility] Address [address] [address] Phone Care Team Providers Care Ent Surgeon Name Role Phone Savage Didi DENAE Primary Care Provider [phone] Allergies No known active allergies Medications albuterol [...] pen 3 01/06/20 20 Active Dexcom G6 Electric Truck Crane Operator miscIndications:Ty pe 1 diabetes mellitus with hyperglycemia [...] above. Assessment & Plan (05/05/2017 8:32 PM HOT STRIP MILL INSPECTOR): As above. 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 MRI 04/18/17 1. 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 2. OTHERWISE NORMAL MRI OF THE LUMBAR SPINE. Assessment & Plan (05/05/2017 8:32 PM HOT STRIP MILL INSPECTOR): Ongoing despite conservative therapy with medication and physical therapy. Will refer to Dr. Garcia for evaluation. Assessment & Plan (04/06/2017 8:42 PM HOT STRIP MILL INSPECTOR): No relief with conservative therapy along with [...] appointment. Assessment & Plan (04/06/2017 8:44 PM HOT STRIP MILL INSPECTOR): Hypertension is uncontrolled. . Dietary sodium restriction. [...] discussed. Assessment & Plan (05/05/2017 8:33 PM HOT STRIP MILL INSPECTOR): Obesity is unchanged. Discussed the patient's BMI. The BMI is above average; BMI management plan is completed. General weight loss/lifestyle modification strategies discussed (elicit support from others; identify saboteurs; non-food rewards, etc). Assessment & Plan (04/06/2017 8:45 PM HOT STRIP MILL INSPECTOR): Obesity is unchanged. Discussed the patient's BMI. The BMI is above average; BMI management plan is completed. General weight loss/lifestyle modification strategies discussed (elicit support from others; identify saboteurs; non-food rewards, etc). Assessment & Plan (03/19/2017 8:32 PM HOT STRIP MILL INSPECTOR): Obesity is essentially stable. . Discussed the [...] months. Assessment & Plan (04/06/2017 8:43 PM HOT STRIP MILL INSPECTOR): Diabetes is uncontrolled. Hgb A1c . Dietary [...] months. Assessment & Plan (03/19/2017 8:31 PM HOT STRIP MILL INSPECTOR): Diabetes is uncontrolled. Hgb A1c 10.1. Reminded [...] Free 07/07/2007 Td, adsorbed 05/08/2008 Tdap 11/14/2017 Surgical History Surgery Date Site/Laterality Comments TONSILLECTOMY 05/08/1998 - 05/07/1999 Tonsillectomy TUBAL LIGATION 01/03/2018 CHOLECYSTECTOMY SECTION x2 Medical History Medical History Date Comments Diabetes mellitus type I (HCC) Family History Medical History Relation Name Comments Other Brother 2 Alive and well; Diabetes type I Father Diabetes -Ty pe 1; /Diabetes -Type 1; Cause of : Diabetes -Type 1 Stroke Father Stroke; Coronary artery disease Maternal Grandmother Coronary artery disease; Other Mother Muscular dystro phy; /MS; /No history of Diabetes mellitus; Diabetes Other 1 Family history of Diabetes mellitus; Heart disease Other 2 Family history of Heart disease; Stroke Other 3 Family history of Stroke; Osteoarthritis Other 4 Family histor y of Osteoarthritis; Coronary artery disease Paternal Grandfather Coronary artery disease; Hypertension Paternal Grandmother Hyperte nsion; Other Sister 2 Alive and well; Relation Name Status Comments Brother 1 Alive Brother 2 Father Maternal Grandmother Mother Alive Other 1 Other 2 Other 3 Other 4 Paternal Grandfather Paternal Grandmother Sister 1 Alive Sister 2 Social History Tobacco Use Types Packs/Day Years [...] on file Legal Sex Female 7:00 PM HOT STRIP MILL INSPECTOR Gender Identity Female 01/14/2020 9:19 PM CDT Sexual Orientation Straight 01/14/2020 9: 19 PM CDT 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 Not on file Not on file Not on piter e Obstetrics History Para Term AB IAB SAB Ectopic Multiple Livin g Live Births 2 2 Date Outcome GA Total Labor Labor/2nd/3rd Weight Sex Type Anes PTL Ayanna A1 A5 Name Clin Para Para Last Filed Vital Signs Vital Sign Reading Time Taken Comments Blood Pressure 120/74 04/09/2024 10:54 AM HOT STRIP MILL INSPECTOR Pulse 90 04/09/2024 10:54 AM HOT STRIP MILL INSPECTOR Temperature 36.8 C (98.3 F) 04/09/2024 10:54 AM HOT STRIP MILL INSPECTOR Respiratory Rate 14 04/09/2024 10:54 AM HOT STRIP MILL INSPECTOR Oxygen Saturation 100% 04/09/2024 10:54 AM HOT STRIP MILL INSPECTOR Inhaled Oxygen Concentration - - Weight 88.5 kg (195 lb) 04/09/2024 9:09 AM HOT STRIP MILL INSPECTOR Height 172.7 cm (5' 8 ) 04/09/2024 9:09 AM HOT STRIP MILL INSPECTOR Body Mass Index 29.65 04/09/2024 9:09 AM HOT STRIP MILL INSPECTOR Plan of Treatment Health Maintenance Due Date Last Done Comments Hepatitis C Screening 1988 Varicella Vaccines (1 of 2 - 13+ 2-dose series) 2001 Hepatitis B Screening 2006 Pneumococcal vaccine <65 (1 of 2 - PCV) 2007 Cervical Cancer Screening 06/06/2019 06/06/2018 Hemoglobin A1C 06/11/2020 12/10/2019, 0907/2018, 12/05/2018, Additional history exists Dilated Eye Exam 10/29/2020 10/30/2019, , 10/17/2018, Additional history exists Albumin Creatinine Ratio, Urine 12/09/2020 12/10/2019, 09/26/2018 Foot Exam 12/09/2020 12/10/2019, 11/07, 02/13/2018, Additional history exists Lipid Panel 12/09/2020 12/10/2019, 09/06, 04/06/2017, Additional history exists TSH Level 12/09/2020 12/10/2019, 09/06, 04/06/2017 Depression Screening 01/14/2021 01/15/2020, 12/05/2018, 02/13/2018, Additional history exists Regular Well Visit/Exam 18-64 01/14/2021 01/15/2020, 09/26/2018 Influenza Vaccine (Season Ended) 2025 01/15/2020, 02/06/2018, 04/06/2017, Additional history exists eGFR 04/09/2025 04/09/2024, 0808/2019, 09/26/2018, Additional history exists DTaP/Tdap/Td Vaccine (2 - Td or Tdap) 11/15/2027 11/14/2017, 05/08/2008, 07/07/2007 HPV Vaccines Aged Out No longer eligi ble based on patient's age to complete this topic Procedures Procedure Name Priority Date/Time Associated Diagnosis Comments EGFR STAT 04/09/2024 9:17 AM HOT STRIP MILL INSPECTOR LIPID PANEL Routine 12/10/2019 9:32 AM CDT [...] Maintenance Results * eGFR (04/09/2024 9:17 AM HOT STRIP MILL INSPECTOR) eGFR 66 >=60 mL/min/1. 73 m2 Comment: [...] last reviewed 2021. Blood 04/09/2024 9:17 AM HOT STRIP MILL INSPECTOR 04/09/2024 9:19 AM HOT STRIP MILL INSPECTOR us Key Villagomez MD LAB BLOOD ORDERABLES Rebecca l Result [facility]) 1 [facility] [place] [address] * TSH reflex to free T4 (12/10/2019 9:32 AM CDT) TSH 1.83 0.30 - 4.20 mcIUnit/mL [facility] Blood specimen (specimen) 12/10/2019 9:32 AM CDT 12/10/2019 1:56 PM CDT Nancy Mcfarland STRATEGY LEAD LAB BLOOD ORDERABLES Final R esult Performing Organization Address [facility] Co de Phone Number [facility] [address] [address] [place] [address] * (ABNORMAL) Albumin Creatinine Ratio, Urine (12/10/2019 9:32 AM CDT) Pathologist [facility] Albumin Ur 313.1 mg/L [facility] Comment: Interpretive Data No reference range established. Current interpretive data was last revised 2018. Creatinine Ur 29.0 mg/dL [facility] Comment: Interpretive Data No reference range established. Current interpretive data was last revised 2018. Albumin Creatinine Ratio, Ur 1,080(H) 1 - 29 mg/g [facility] Urine 12/10/2019 9:32 AM CDT 12/10/2019 1:56 PM CDT Nancy Mcfarland STRATEGY LEAD LAB URINE ORDERABLES Final R [facility] Performing Organization Address City/[facility]/ZIP Co de Phone Number [facility] [address] [address] [place] [address] * (ABNORMAL) Lipid panel (12/10/2019 9:32 AM CDT) Pathologist [facility] Cholesterol 253(H) 30 - 199 mg/dL СВ[facility]ТЛАН[facility] [...] Pediatrics 2011;128:S213 2. NCEP Expert Panel. Circulation 2003;110:227 Current Interpretive Data was last revised on [...] Pediatrics 2011;128:S213 2. NCEP Expert Panel. Circulation 2003;110:227 Current Interpretive Data was last revised on [...] on 2017. Non-HDL Cholesterol 200 mg/dL [facility] Comment: Interpretive Data Ages < or = [...] revised on 2017. Chol/HDL ratio 5 [facility] Blood specimen (specimen) 12/10/2019 9:32 AM CDT 12/10/2019 1:56 PM CDT Nancy Mcfarland NP LAB BLOOD ORDERABLES Final R esult [facility] [address] [place] [address] * (ABNORMAL) POCT hemoglobin A1c (12/10/2019 9:14 [...] Most Recently Relevant to Health Maintenance Insurance [employer] OPEN ACCESS [employer] OPEN ACCESS [facility] CHOICE PLUS Care Teams Ent Surgeon Relationship Specialty Start Date End Date Didi Wan NP [address] [place] [id number] PCP - General Nurse Practitioner 04/09/24
--- OUTSIDE RECORDS SUMMARY | 2024-09-03 07:49 | XMS_ITS | Clinical Summary ---
Author Organization [facility] Address [address] [place] [address] Phone Care Team Providers Care Ground Surveillance Systems Operator Name Role Phone Isidoro Kenney MD Primary Care Provider [phone] Allergies No known active allergies Medications Insulin Detemir (LEVEMIR SC) 30 U SQ BID Activ e Insulin Lispro, Human, (HUMALOG SC) SLIDING SCALE Active Albuterol Sulfate (PROAIR HFA IN) Active spironolactone (ALDACTONE) 100 MG Tablet Take 100 mg by mouth. 12/01/2020 Active amLODIPine (NORVASC) 10 MG Tablet Take 10 mg by mouth daily. 01/15/2020 Active atorvastatin (LIPITOR) 20 MG Tablet Take 20 mg by mouth daily. 01/10/2022 Active losartan (COZAAR) 100 MG Tablet Take 100 mg by mouth daily. 01/10/2022 Active metFORMIN (GLUCOPHAGE) 500 MG Tablet Take 500 mg by mouth 2 times daily. 01/10/2022 Active Active Problems Problem Noted Date Diagnosed Date Asthma DM type 1 (diabetes mellitus, type 1) Immunizations Immunization Administration Dates Next Due Influenza Vaccine,unspecified Formulation 2011 Tetanus Toxoid, Unspecified Formulation 05/08/19 09 Social History Tobacco Use Types Packs/Day Years Used Date Smoking Tobacco: Never Smokeless Tobacco: Never Tobacco Cessation:Counseling Given: Not Answered Comments No Sex and Gender Information Value Date Recorded Sex Assigned at Not on file Legal Sex Female 11:04 PM CDT Gender Identity Not on file Sexual Orientation Not on file Last Filed Vital Signs Vital Sign Reading Time Taken Comments Blood Pressure 126/80 03/29/2022 10:25 AM ECLECTIC DOCTOR Pulse 91 03/29/2022 10:25 AM ECLECTIC DOCTOR Temperature 36.6 C (97.9 F) 03/29/2022 10:25 AM ECLECTIC DOCTOR Respiratory Rate 20 03/29/2022 10:25 AM ECLECTIC DOCTOR Oxygen Saturation 99% 03/29/2022 10:25 AM ECLECTIC DOCTOR Inhaled Oxygen Concentration - - Weight - - Height - - Body Mass Index - - Plan of Treatment Health Maintenance Due Date Last Done Comments Diabetes: Eye Exam 1988 Diabetes: Foot Exam 1988 Diabetes: Hemoglobin A1c 1988 Hepatitis C Virus (HCV) Screening 1988 Diabetes: Nephropathy Screening 2006 Hepatitis B Immunization (1 of 3 - 19+ 3-dose series) 2007 Pneumococcal Immunization Combined (1 of 2 - PCV) 2007 SARS-COV-2 Immunization ( - season) 2024 07/25/2020, 06/27/2020 Influenza Immunization (Season Ended) 2025 01/15/2020, 02/06/2018, 04/06/2017, Additional history exists Respiratory Syncytial Virus (RSV) Immunization (Adult) (1 - 1-dose 75+ series) 2063 DTaP/Tdap/Td Immunization Discontinued 2017, 05/08/2008, 07/07/2007 TdaP Immunization Completed 11/14/2017 Meningococcal Immunization (ACWY) Aged Out No longer eligible based on patient's age to complete this topic Rotavirus Immunization Aged Out No lo nger eligible based on patient's age to complete this topic [place] [address] [place] [address] [facility] [employer] Care Teams Ground Surveillance Systems Operator Relationship Specialty Start Date End Date Isidoro Kenney MD [address] [place] [address] PCP - General Family Medicine 03/29/22
[2024-09-03 20:46] LABS: Alanine Aminotransferase 17 U/L (6-35); Alkaline Phosphatase 69 U/L (38-126); Anion Gap 4 mmol/L (4-12); Aspartate Amino Transferase 61 U/L (14-36); Bilirubin,Total 0.5 mg/dL (0.2-1.3); Blood Urea Nitrogen 20 mg/dL (7-17); Calcium 8.6 mg/dL (8.4-10.2); Carbon Dioxide 29 mmol/L (22-30); Chloride 105 mmol/L (98-107); Cholesterol 175 mg/dL (0-200); Estimated Glomerular Filt Rate 53; Glucose 77 mg/dL (65-110); HDL Direct 59 mg/dL; Potassium 4.7 mmol/L (3.4-5.0); Sodium 138 mmol/L (137-145); Triglycerides 46 mg/dL (<150)
[2024-09-03 20:58] LABS: LDL Cholesterol Direct 85 mg/dL
== END 2024-09-03 07:46 | disposition home or self-care (01) ==
LOC: ANHBWCLAB 07:46
PROVIDERS: PCP Nurse Practitioner Adult Health; Visit Provider Nurse Practitioner Adult Health
DX: E78.5 Hyperlipidemia, unspecified (principal); L65.9 Nonscarring hair loss, unspecified
CPT/HCPCS: 36415; 80053; 80061; 82607; 84443

== ENCOUNTER 2024-10-14 09:22 | Outpatient (CLI) | payer OTHER, SELFPAY ==
--- NOTE | ~2024-10-14 | MMUS_ITS ---
EXAMINATION: US breast RT limited, MM diagnostic eagle RT w irena HISTORY: Follow-up right breast asymmetry/mass TECHNIQUE: Additional 3-D tomosynthesis images of the right breast were performed and synthetic 2-D i mages were generated. CAD analysis was submitted and interpreted. High resolution Limited right breas t ultrasound was performed. COMPARISON: 03/28/2024 BREAST PARENCHYMAL COMPOSITION: Dense: The breasts are heterogeneously dense, which may obscure small masses FINDINGS: MAMMOGRAPHIC FINDINGS: There are no suspicious masses, calcifications or architectural distortion in the right breast to sug gest malignancy. Heterogeneous fibroglandular tissue present in the periareolar location the right br east which is stable. ULTRASOUND: Limited right breast ultrasound: Heterogeneous echotexture is present in the right breast without dis crete mass. Mildly prominent ducts are present. IMPRESSION: 1. Stable right breast. No suspicious masses, calcifications or architectural distortion in the right breast to suggest malignancy. 2. Routine yearly screening mammogram and regular clinical breast examination are recommended. BI-RADS Category 2: Benign finding(s). Reviewed, dictated and finalized at location B. IMPRESSION: 1. Stable right breast. No suspicious masses, calcifications or architectural d istortion in the right breast to suggest malignancy. 2. Routine yearly screening mammogram and regular clinical breast examination a re recommended. BI-RADS Category 2: Benign finding(s).
--- OUTSIDE RECORDS SUMMARY | 2024-10-14 10:05 | XMS_ITS | Clinical Summary ---
Author Organization [facility] Address [address] [place] [address] Phone Care Team Providers Care Dehydrogenation Converter Helper Name Role Phone Isidoro Kenney MD Primary Care Provider [phone] Allergies No known active allergies Medications Insulin [...] Comments Blood Pressure 126/80 03/29/2022 10:25 AM RETICLE PRINTER Pulse 91 03/29/2022 10:25 AM RETICLE PRINTER Temperature 36.6 C (97.9 F) 03/29/2022 10:25 AM RETICLE PRINTER Respiratory Rate 20 03/29/2022 10:25 AM RETICLE PRINTER Oxygen Saturation 99% 03/29/2022 10:25 AM RETICLE PRINTER Inhaled Oxygen Concentration - - Weight - - Height - - Body Mass Index - - Plan of Treatment Health Maintenance Due Date Last Done Comments Diabetes: Eye Exam 1988 Diabetes: Foot Exam 1988 Diabetes: Hemoglobin A1c 1988 Hepatitis C Virus (HCV) Screening 1988 Human Papillomavirus (HPV) Immunization (1 - 3-dose series) 2003 Diabetes: Nephropathy Screening 2006 Hepatitis B Immunization [...] patient's age to complete this topic Insurance [facility] SAV[facility] Care Teams Dehydrogenation Converter Helper Relationship Specialty Start Date End Date Isidoro Kenney MD [address] [place] [phone] PCP - General Family Medicine 03/29/22
--- OUTSIDE RECORDS SUMMARY | 2024-10-14 10:05 | XMS_ITS | Referral Summary ---
Author Organization [facility] Address [address] [address] Phone Care Team Providers Care Audio Visual Arts Director Name Role Phone Savage Didi PHILIPPE Primary Care Provider [phone] Allergies No known active allergies Medications albuterol [...] pen 3 01/06/20 20 Active Dexcom G6 Field Horticultural Specialty Grower miscIndications:Ty pe 1 diabetes mellitus with hyperglycemia [...] above. Assessment & Plan (05/05/2017 8:32 PM REPLENISHMENT ANALYST): As above. 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 MRI 04/18/17 1. 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 2. OTHERWISE NORMAL MRI OF THE LUMBAR SPINE. Assessment & Plan (05/05/2017 8:32 PM REPLENISHMENT ANALYST): Ongoing despite conservative therapy with medication and physical therapy. Will refer to Dr. Garcia for evaluation. Assessment & Plan (04/06/2017 8:42 PM REPLENISHMENT ANALYST): No relief with conservative therapy along with [...] appointment. Assessment & Plan (04/06/2017 8:44 PM REPLENISHMENT ANALYST): Hypertension is uncontrolled. . Dietary sodium restriction. [...] discussed. Assessment & Plan (05/05/2017 8:33 PM REPLENISHMENT ANALYST): Obesity is unchanged. Discussed the patient's BMI. The BMI is above average; BMI management plan is completed. General weight loss/lifestyle modification strategies discussed (elicit support from others; identify saboteurs; non-food rewards, etc). Assessment & Plan (04/06/2017 8:45 PM REPLENISHMENT ANALYST): Obesity is unchanged. Discussed the patient's BMI. The BMI is above average; BMI management plan is completed. General weight loss/lifestyle modification strategies discussed (elicit support from others; identify saboteurs; non-food rewards, etc). Assessment & Plan (03/19/2017 8:32 PM REPLENISHMENT ANALYST): Obesity is essentially stable. . Discussed the [...] months. Assessment & Plan (04/06/2017 8:43 PM REPLENISHMENT ANALYST): Diabetes is uncontrolled. Hgb A1c . Dietary [...] months. Assessment & Plan (03/19/2017 8:31 PM REPLENISHMENT ANALYST): Diabetes is uncontrolled. Hgb A1c 10.1. 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 on piter e Last Filed Vital Signs Vital Sign Reading Time Taken Comments Blood Pressure 120/74 04/09/2024 10:54 AM REPLENISHMENT ANALYST Pulse 90 04/09/2024 10:54 AM REPLENISHMENT ANALYST Temperature 36.8 C (98.3 F) 04/09/2024 10:54 AM REPLENISHMENT ANALYST Respiratory Rate 14 04/09/2024 10:54 AM REPLENISHMENT ANALYST Oxygen Saturation 100% 04/09/2024 10:54 AM REPLENISHMENT ANALYST Inhaled Oxygen Concentration - - Weight 88.5 kg (195 lb) 04/09/2024 9:09 AM REPLENISHMENT ANALYST Height 172.7 cm (5' 8) 04/09/2024 9:09 AM REPLENISHMENT ANALYST Body Mass Index 29.65 04/09/2024 9:09 AM REPLENISHMENT ANALYST Plan of Treatment Not on file Procedures Procedure Name Priority Date/Time Associated Diagnosis Comments EGFR STAT 04/09/2024 9:17 AM REPLENISHMENT ANALYST LIPID PANEL Routine 12/10/2019 9:32 AM CDT [...] Maintenance Results * eGFR (04/09/2024 9:17 AM REPLENISHMENT ANALYST) eGFR 66 >=60 mL/min/1. 73 m2 Comment: [...] last reviewed 2021. Blood 04/09/2024 9:17 AM REPLENISHMENT ANALYST 04/09/2024 9:19 AM REPLENISHMENT ANALYST Key Villagomez MD LAB BLOOD ORDERABLES Rebecca l Result [facility] 1 [facility] [place] [address] * TSH reflex to free T4 (12/10/2019 9:32 AM CDT) TSH 1.83 0.30 - 4.20 mcIUnit/mL [facility] Blood specimen (specimen) 12/10/2019 9:32 AM CDT 12/10/2019 1:56 PM CDT us Nancy Mcfarland NP LAB BLOOD ORDERABLES Final R esult [facility] [address] [address] Department [place] [address] * (ABNORMAL) Albumin Creatinine Ratio, Urine (12/10/2019 [...] CDT 12/10/2019 1:56 PM CDT Nancy Mcfarland DOG RACES MANAGER LAB URINE ORDERABLES Final R esult [facility] [address] [address] Department [place] [address] * (ABNORMAL) Lipid panel (12/10/2019 9:32 AM [...] BLOOD ORDERABLES Final R esult [facility] [address] [address] Department [place] [address] * (ABNORMAL) POCT hemoglobin A1c (12/10/2019 9:14 [...] Most Recently Relevant to Health Maintenance Insurance [facility] CHOICE PLUS [facility] ACC[facility] CHOICE PLUS Care Teams Audio Visual Arts Director Relationship Specialty Start Date End Date Didi Wan NP [address] [place] [address] PCP - General Nurse Practitioner 04/09/24
--- OUTSIDE RECORDS SUMMARY | 2024-10-14 10:05 | XMS_ITS | Clinical Summary ---
Author Organization [facility] Address [address] [address] Phone Care Team Providers Care Head And Neck Surgeon Name Role Phone Savage Didi DENAE Primary Care Provider [phone] Allergies No known active allergies Medications albuterol [...] pen 3 01/06/20 20 Active Dexcom G6 Maintenance Shop Clerk miscIndications:Ty pe 1 diabetes mellitus with hyperglycemia [...] above. Assessment & Plan (05/05/2017 8:32 PM WREATH INSPECTOR): As above. 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 MRI 04/18/17 1. 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 2. OTHERWISE NORMAL MRI OF THE LUMBAR SPINE. Assessment & Plan (05/05/2017 8:32 PM WREATH INSPECTOR): Ongoing despite conservative therapy with medication and physical therapy. Will refer to Dr. Garcia for evaluation. Assessment & Plan (04/06/2017 8:42 PM WREATH INSPECTOR): No relief with conservative therapy along [...] appointment. Assessment & Plan (04/06/2017 8:44 PM WREATH INSPECTOR): Hypertension is uncontrolled. . Dietary sodium [...] discussed. Assessment & Plan (05/05/2017 8:33 PM WREATH INSPECTOR): Obesity is unchanged. Discussed the patient's BMI. The BMI is above average; BMI management plan is completed. General weight loss/lifestyle modification strategies discussed (elicit support from others; identify saboteurs; non-food rewards, etc). Assessment & Plan (04/06/2017 8:45 PM WREATH INSPECTOR): Obesity is unchanged. Discussed the patient's BMI. The BMI is above average; BMI management plan is completed. General weight loss/lifestyle modification strategies discussed (elicit support from others; identify saboteurs; non-food rewards, etc). Assessment & Plan (03/19/2017 8:32 PM WREATH INSPECTOR): Obesity is essentially stable. . Discussed [...] months. Assessment & Plan (04/06/2017 8:43 PM WREATH INSPECTOR): Diabetes is uncontrolled. Hgb A1c . [...] months. Assessment & Plan (03/19/2017 8:31 PM WREATH INSPECTOR): Diabetes is uncontrolled. Hgb A1c 10.1. 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 on piter e Obstetrics History Para Term AB IAB SAB Ectopic Multiple Livin g Live Births 2 2 Date Outcome GA Total Labor Labor/2nd/3rd Weight Sex Type Anes PTL Ayanna A1 A5 Name Clin Para Para Last Filed Vital Signs Vital Sign Reading Time Taken Comments Blood Pressure 120/74 04/09/2024 10:54 AM WREATH INSPECTOR Pulse 90 04/09/2024 10:54 AM WREATH INSPECTOR Temperature 36.8 C (98.3 F) 04/09/2024 10:54 AM WREATH INSPECTOR Respiratory Rate 14 04/09/2024 10:54 AM WREATH INSPECTOR Oxygen Saturation 100% 04/09/2024 10:54 AM WREATH INSPECTOR Inhaled Oxygen Concentration - - Weight 88.5 kg (195 lb) 04/09/2024 9:09 AM WREATH INSPECTOR Height 172.7 cm (5' 8) 04/09/2024 9:09 AM WREATH INSPECTOR Body Mass Index 29.65 04/09/2024 9:09 AM WREATH INSPECTOR Plan of Treatment Health Maintenance Due [...] Diagnosis Comments EGFR STAT 04/09/2024 9:17 AM WREATH INSPECTOR LIPID PANEL Routine 12/10/2019 9:32 AM [...] Maintenance Results * eGFR (04/09/2024 9:17 AM WREATH INSPECTOR) eGFR 66 >=60 mL/min/1. 73 m2 [...] last reviewed 2021. Blood 04/09/2024 9:17 AM WREATH INSPECTOR 04/09/2024 9:19 AM WREATH INSPECTOR us Key Villagomez MD LAB BLOOD ORDERABLES Rebecca l Result [facility] 1 [facility] Department [place] [address] * TSH reflex to free T4 (12/10/2019 9:32 AM CDT) TSH 1.83 0.30 - 4.20 mcIUnit/mL [facility] Blood specimen (specimen) 12/10/2019 9:32 AM CDT 12/10/2019 1:56 PM CDT Nancy Mcfarland SINGLE PASS SOIL STABILIZER OPERATOR LAB BLOOD ORDERABLES Final R esult Performing Organization Address [facility] Co de Phone Number [facility] [address] [address] [place] [address] * (ABNORMAL) Albumin Creatinine Ratio, Urine (12/10/2019 9:32 AM CDT) Pathologist [facility] Albumin Ur 313.1 mg/L [facility] Comment: Interpretive Data No reference range established. Current interpretive data was last revised 2018. Creatinine Ur 29.0 mg/dL [facility] Comment: Interpretive Data No reference range established. Current interpretive data was last revised 2018. Albumin Creatinine Ratio, Ur 1,080(H) 1 - 29 mg/g [facility] Urine 12/10/2019 9:32 AM CDT 12/10/2019 1:56 PM CDT Nancy Mcfarland SINGLE PASS SOIL STABILIZER OPERATOR LAB URINE ORDERABLES [facility] Performing Organization Address City/[facility]/ZIP Co de Phone Number [facility] [place] [address] [address] Department [place] [address] * (ABNORMAL) Lipid panel (12/10/2019 9:32 AM CDT) Pathologist [facility] Cholesterol 253(H) 30 - 199 mg/dL [facility]ЛАНА [...] LAB BLOOD ORDERABLES Final R esult [facility] [address] [address] Department [place] [address] * (ABNORMAL) POCT hemoglobin A1c (12/10/2019 9:14 [...] Most Recently Relevant to Health Maintenance Insurance [employer] OPEN ACCESS [employer] OPEN ACCESS [facility] CHOICE PLUS Care Teams Head And Neck Surgeon Relationship Specialty Start Date End Date Didi Wan NP [address] [place] [address] PCP - General Nurse Practitioner 04/09/24
--- OUTSIDE RECORDS SUMMARY | 2024-10-14 10:05 | XMS_ITS | Clinical Summary ---
Author Organization [facility] Address [address] [place] [address] Phone Care Team Providers Care Blacktop Spreader Name Role Phone Danyell Adam NP Primary Care Provider [phone] Allergies No known active allergies Social History Tobacco Use Types Packs/Day Years Used Date Smoking Tobacco: Never Assessed Comments No Sex and Gender Information Value Date Recorded Sex Assigned at Not on file Legal Sex Female 3:01 PM OPERATIONS ANALYST Gender Identity Not on file Sexual Orientation [...] - 6.0 % 09/29/2015 5:06 PM CDT [facility] Comment:Note: Effective as o f 05/29/2014 a new methodology, Turbidimetric inhibition immunoassay (TINIA),has been implemented. EST. AVG GLUCOSE, A1C 134 mg/dL 09/29/2015 5:06 PM CDT [facility] Blood Venipuncture - L ab Collect / Unknown 09/29/2015 2:22 PM CDT 09/29/2015 2:39 PM CDT us Elan Barnes MD CHEMISTRY ORDERABLES Final Res ult [facility] CLIA# [id number] [address] [place] [address] from Last 3 Months or Most Recently Relevant to Health Maintenance Insurance [facility] PREFERR[facility] Care Teams Blacktop Spreader Relationship Specialty [place] [address] [phone] PCP - General NURSE PRACTITIONER 06/17/15
--- OUTSIDE RECORDS SUMMARY | 2024-10-14 10:05 | XMS_ITS | Encounter Summary ---
Author Organization [facility] Address [address] [facility] [place] [address] Care Team Providers Care Booth Cashier Name Role Phone Danyell Adam ASSEMBLER LEATHER GOODS-BIOMETRIC FINGERPRINTING TECHNICIAN Primary Care Provide r Reason for Visit * Reason Onset Date Comments MEDICATION REFILL 12/28/2017 Encounter Details Date Type Department Care Team (Late st Contact Info) Description 12/28/2017 Refill [facility] [address] [place] [address] Emely Montes MD [address] [address] MEDICATION REFILL Social History Tobacco [...] Industry Job 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
--- OUTSIDE RECORDS SUMMARY | 2024-10-14 10:05 | XMS_ITS | Clinical Summary ---
Author Organization [facility] Address [address] [place] [address] Phone Care Team Providers Care Space Control Supervisor Name Role Phone Ivan Blunt DO Primary Care Provider [phone] Allergies No known active allergies Medications albuterol HFA (PROVENTIL HFA) 108 (90 Base) MCG/ACT inhaler Inhale 2 puffs 8 Active atorvastatin (LIPITOR) 20 MG tablet Take 20 mg by mouth 1 (one) time each day 1 Active amLODIPine (NORVASC) 10 MG tablet Take 10 mg by mouth daily 0 Active cholecalcifero l (VITAMIN D-3) 50 MCG (1999) capsule 1 Active Continuous Blood Gluc Grain Spouter (Dexcom G6 Grain Spouter) device USE TO CHECK BLOOD SUGAR 1 [...] a prior Proteinuria 07/28/2017 Overview (12/29/2020): Saw [facility] nephrology. 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
--- OUTSIDE RECORDS SUMMARY | 2024-10-14 10:05 | XMS_ITS | Clinical Summary ---
Author Organization [facility] Address [address] [place] [address] Care Team Providers Care Tariff Supervisor Name Role Phone Danyell Adam MACHINE III COREMAKER-THERAPY SITE COORDINATOR Primary Care Provide r Source Comments [facility],non-owned Affiliates and Associated Physician Practices is amultiple site organization consisting of ambulatory clinics and hospital sitesin [place], [place], [place] and [place]. This disclosure is being madepursuant to the Care Everywhere program and may not contain all information available regarding this patient. Last updated 18.[facility] Allergies No known active allergies Medications * [...] different from the original. 11/22/17 Request to [facility] Ethics re: Tubal ligation Approved Problem Noted [...] counting Proteinuria affecting 07/28/2017 Overview (09/18/2017): Saw [facility] nephrology. 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 Blood specimen (specimen) BLOOD SPECIMEN / Unknown 07/28/2017 9:45 AM CDT 07/28/2017 10:13 AM CDT Rahul Acosta MD LAB - HEMATOLOGY ORDERABLES [place] [address], [facility] [phone] * HEPATITIS C AB SCREEN RFLX PCR QUANT (07/28/2017 9:45 AM CDT) Hepatitis C Antibody [facility] Comment: Hepatitis C Antibody screen indicates [...] LAB - CHEMISTRY ORDERABLES Fin al Result [address] [phone] from Last 3 Months or Most Recently Relevant to Health Maintenance Insurance [facility] Advance Directives * Full Code (Latest Code Status on File) Date Activated Date Inactivated Comments 01/03/2018 2:55 PM 01/09/2018 9:27 PM * Full Code Date Activated Date Inactivated Comments 11/14/2017 3:32 PM 11/14/2017 8:37 PM * Full Code Date Activated Date Inactivated Comments 10/26/2017 5:38 PM 10/26/2017 9:42 PM Care Teams Tariff Supervisor Relationship Specialty Start Date End Date Danyell Adam, MACHINE III COREMAKER-THERAPY SITE COORDINATOR PCP - General 08/18/17
== END 2024-10-14 09:23 | disposition home or self-care (01) ==
LOC: CHSIMG 09:23
PROVIDERS: PCP Nurse Practitioner Adult Health; Visit Provider Obstetrics & Gynecology Gynecology
DX: R92.8 Other abnormal and inconclusive findings on diagnostic imaging of breast (principal)
CPT/HCPCS: 76642; 77061; 77065; G0279

== ENCOUNTER 2024-12-04 08:13 | Outpatient (CLI) | payer OTHER, SELFPAY ==
--- OUTSIDE RECORDS SUMMARY | 2024-12-04 08:24 | XMS_ITS | Encounter Summary ---
Author Organization [facility] Address [address] [place] [address] Care Team Providers Care Oral And Maxillofacial Surgery Name Role Phone Danyell Adam SENIOR ABAP DEVELOPER-GIS ENGINEER Primary Care Provide r Reason for Visit * Reason Onset Date Comments MEDICATION REFILL 12/28/2017 Encounter Details Date Type Department Care Team (Late st Contact Info) Description 12/28/2017 Refill [facility] [address] [place] [address] CloudEmely hartley MD [address] [address] MEDICATION REFILL Social History Tobacco [...] Job 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
--- OUTSIDE RECORDS SUMMARY | 2024-12-04 08:24 | XMS_ITS | Clinical Summary ---
Author Organization [facility] Address [address] [address] Phone Care Team Providers Care Nuclear Physics Professor Name Role Phone Savage Didi DENAE Primary Care Provider [phone] Allergies No known active allergies Medications albuterol [...] pen 3 01/06/20 20 Active Dexcom G6 Transformer Inspector miscIndications:Ty pe 1 diabetes mellitus with hyperglycemia [...] above. Assessment & Plan (05/05/2017 8:32 PM COLD ROLLING COORDINATOR): As above. 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 MRI 04/18/17 1. 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 2. OTHERWISE NORMAL MRI OF THE LUMBAR SPINE. Assessment & Plan (05/05/2017 8:32 PM COLD ROLLING COORDINATOR): Ongoing despite conservative therapy with medication and physical therapy. Will refer to Dr. Garcia for evaluation. Assessment & Plan (04/06/2017 8:42 PM COLD ROLLING COORDINATOR): No relief with conservative therapy along with [...] appointment. Assessment & Plan (04/06/2017 8:44 PM COLD ROLLING COORDINATOR): Hypertension is uncontrolled. . Dietary sodium restriction. [...] discussed. Assessment & Plan (05/05/2017 8:33 PM COLD ROLLING COORDINATOR): Obesity is unchanged. Discussed the patient's BMI. The BMI is above average; BMI management plan is completed. General weight loss/lifestyle modification strategies discussed (elicit support from others; identify saboteurs; non-food rewards, etc). Assessment & Plan (04/06/2017 8:45 PM COLD ROLLING COORDINATOR): Obesity is unchanged. Discussed the patient's BMI. The BMI is above average; BMI management plan is completed. General weight loss/lifestyle modification strategies discussed (elicit support from others; identify saboteurs; non-food rewards, etc). Assessment & Plan (03/19/2017 8:32 PM COLD ROLLING COORDINATOR): Obesity is essentially stable. . Discussed the [...] months. Assessment & Plan (04/06/2017 8:43 PM COLD ROLLING COORDINATOR): Diabetes is uncontrolled. Hgb A1c . Dietary [...] months. Assessment & Plan (03/19/2017 8:31 PM COLD ROLLING COORDINATOR): Diabetes is uncontrolled. Hgb A1c 10.1. 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 Not on file Not on piter e Obstetrics History Para Term AB IAB SAB Ectopic Multiple Livin g Live Births 2 2 Date Outcome GA Total Labor Labor/2nd/3rd Weight Sex Type Anes PTL Ayanna A1 A5 Name Clin Para Para Last Filed Vital Signs Vital Sign Reading Time Taken Comments Blood Pressure 120/74 04/09/2024 10:54 AM COLD ROLLING COORDINATOR Pulse 90 04/09/2024 10:54 AM COLD ROLLING COORDINATOR Temperature 36.8 C (98.3 F) 04/09/2024 10:54 AM COLD ROLLING COORDINATOR Respiratory Rate 14 04/09/2024 10:54 AM COLD ROLLING COORDINATOR Oxygen Saturation 100% 04/09/2024 10:54 AM COLD ROLLING COORDINATOR Inhaled Oxygen Concentration - - Weight 88.5 kg (195 lb) 04/09/2024 9:09 AM COLD ROLLING COORDINATOR Height 172.7 cm (5' 8) 04/09/2024 9:09 AM COLD ROLLING COORDINATOR Body Mass Index 29.65 04/09/2024 9:09 AM COLD ROLLING COORDINATOR Plan of Treatment Health Maintenance Due Date Last Done Comments Hepatitis C Screening 1988 Varicella Vaccines (1 of 2 - 13+ 2-dose series) 2001 Hepatitis B Screening 2006 Pneumococcal vaccine <65 (1 of 2 - PCV) 2007 HPV Vaccines (1 - 3-dose SCD M series) 2015 Cervical Cancer Screening 06/06/2019 06/06/2018 Hemoglobin A1C 06/11/2020 12/10/2019, 090 07/2018, 12/05/2018, Additional history exists Dilated Eye Exam 10/29/2020 10/30/2019, , 10/17/2018, Additional history exists Albumin Creatinine Ratio, Urine 12/09/2020 0, 09/26/2018 Foot Exam 12/09/2020 12/10/2019, 11/07, 02/13/2018, Additional history exists Lipid Panel 12/09/2020 12/10/2019, 09/06, 04/06/2017, Additional history exists TSH Level 12/09/2020 12/10/2019, 09/06, 04/06/2017 Depression Screening 01/14/2021 01/15/2020, 12/05/2018, 02/13/2018, Additional history exists Regular Well Visit/Exam 18-64 01/14/2021 01/15/2020, 09/26/2018 Influenza Vaccine (#1) 2025 0, 02/06/2018, 04/06/2017, Additional history exists eGFR 04/09/2025 04/09/2024, 080 08/2019, 09/26/2018, Additional history exists DTaP/Tdap/Td Vaccine (2 - Td or Tdap) 11/15/2027 11/14/2017, 05/08/2008, 07/07/2007 Procedures Procedure Name Priority Date/Time Associated Diagnosis Comments EGFR STAT 04/09/2024 9:17 AM COLD ROLLING COORDINATOR LIPID PANEL Routine 12/10/2019 9:32 AM CDT [...] Maintenance Results * eGFR (04/09/2024 9:17 AM COLD ROLLING COORDINATOR) eGFR 66 >=60 mL/min/1. 73 m2 Comment: [...] last reviewed 2021. Blood 04/09/2024 9:17 AM COLD ROLLING COORDINATOR 04/09/2024 9:19 AM COLD ROLLING COORDINATOR us Key Villagomez MD LAB BLOOD ORDERABLES Rebecca l Result [facility]) 1 [facility] [place] [address] * TSH reflex to free T4 (12/10/2019 9:32 AM CDT) TSH 1.83 0.30 - 4.20 mcIUnit/mL [facility] Blood specimen (specimen) 12/10/2019 9:32 AM CDT 12/10/2019 1:56 PM CDT Nancy Mcfarland RUG DYER HELPER LAB BLOOD ORDERABLES Final R esult Performing Organization Address [facility] Co de Phone Number [facility] [place] [address] [address] [place] [address] * (ABNORMAL) Albumin Creatinine Ratio, Urine (12/10/2019 [...] CDT 12/10/2019 1:56 PM CDT Nancy Mcfarland RUG DYER HELPER LAB URINE ORDERABLES Final R esrust Performing Organization Address City/[facility]/ZIP Co de Phone Number [facility] [place] [address] [address] Department [place] [address] * (ABNORMAL) Lipid panel (12/10/2019 9:32 AM [...] LAB BLOOD ORDERABLES Final R esult [facility] [address] [address] Department [place] [address] * (ABNORMAL) POCT hemoglobin A1c (12/10/2019 9:14 [...] Most Recently Relevant to Health Maintenance Insurance [employer] OPEN ACCESS [employer] OPEN ACCESS [facility] CHOICE PLUS Care Teams Nuclear Physics Professor Relationship Specialty Start Date End Date Didi Wan NP [address] [place] [id number] PCP - General Nurse Practitioner 04/09/24
--- OUTSIDE RECORDS SUMMARY | 2024-12-04 08:24 | XMS_ITS | Clinical Summary ---
Author Organization [facility] Address [address] [place] [address] Phone Care Team Providers Care Food Tester Name Role Phone Ivan Blunt DO Primary Care Provider [phone] Allergies No known active allergies Medications albuterol HFA (PROVENTIL HFA) 108 (90 Base) MCG/ACT inhaler Inhale 2 puffs 8 Active atorvastatin (LIPITOR) 20 MG tablet Take 20 mg by mouth 1 (one) time each day 1 Active amLODIPine (NORVASC) 10 MG tablet Take 10 mg by mouth daily 0 Active cholecalcifero l (VITAMIN D-3) 50 MCG (1999) capsule 1 Active Continuous Blood Gluc Extruding Machine Operator (Dexcom G6 Extruding Machine Operator) device USE TO CHECK BLOOD SUGAR 1 [...] a prior Proteinuria 07/28/2017 Overview (12/29/2020): Saw [facility] nephrology. 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
--- OUTSIDE RECORDS SUMMARY | 2024-12-04 08:24 | XMS_ITS | Clinical Summary ---
Author Organization [facility] Address [address] [place] [address] Phone Care Team Providers Care Licensed Audiologist Name Role Phone Isidoro Kenney MD Primary Care Provider [phone] Allergies No known active allergies Medications Insulin [...] Comments Blood Pressure 126/80 03/29/2022 10:25 AM SENIOR SVP Pulse 91 03/29/2022 10:25 AM SENIOR SVP Temperature 36.6 C (97.9 F) 03/29/2022 10:25 AM SENIOR SVP Respiratory Rate 20 03/29/2022 10:25 AM SENIOR SVP Oxygen Saturation 99% 03/29/2022 10:25 AM SENIOR SVP Inhaled Oxygen Concentration - - Weight - [...] Combined (1 of 2 - PCV) 2007 Pap Smear 2009 Human Papillomavirus (HPV) Immunization (1 - 3-dose SCDM series) 2015 Cervical Cancer Screening (CCS) 2018 HPV/Cotest 2018 SARS-COV-2 Immunization (3 - 2023- season) 2024 07/25/2020, 06/27/2020 Influenza Immunization (#1) 2025 09/0 01/2020, 02/06/2018, 04/06/2017, Additional history exists Respiratory Syncytial Virus (RSV) Immunization (Adult) (1 - 1-dose 75+ series) 2063 DTaP/Tdap/Td Immunization Discontinued 2017, 05/08/2008, 07/07/2007 TdaP Immunization Completed 11/14/2017 Meningococcal Immunization (ACWY) Aged Out No longer eligible based on patient's age to complete this topic Rotavirus Immunization Aged Out No lo nger eligible based on patient's age to complete this topic Insurance [facility] ALL SAVERS Care Teams Licensed Audiologist Relationship Specialty Start Date End Date Isidoro Kenney MD [address] [place] [id number] PCP - General Family Medicine 03/29/22
--- OUTSIDE RECORDS SUMMARY | 2024-12-04 08:24 | XMS_ITS | Clinical Summary ---
Author Organization [facility] Address [address] [place] [address] Care Team Providers Care State Game Protector Name Role Phone Danyell Adam IT SYSTEMS ENGINEER-METAL FURNITURE ASSEMBLY SUPERVISOR Primary Care Provide r Source Comments [facility],non-owned Affiliates and Associated Physician Practices is amultiple site organization consisting of ambulatory clinics and hospital sitesin [place], [place], [place] and [place]. This disclosure is being madepursuant to the Care Everywhere program and may not contain all information available regarding this patient. Last updated 18.[facility] Allergies No known active allergies Medications * [...] different from the original. 11/22/17 Request to [facility] Ethics re: Tubal ligation Approved Problem [...] counting Proteinuria affecting 07/28/2017 Overview (09/18/2017): Saw [facility] nephrology. 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 Blood specimen (specimen) BLOOD SPECIMEN / Unknown 07/28/2017 9:45 AM CDT 07/28/2017 10:13 AM CDT us Rahul Acosta MD LAB - HEMATOLOGY ORDERABLES Fi nal Result [address] [phone] * HEPATITIS C AB SCREEN RFLX PCR QUANT (07/28/2017 9:45 AM CDT) Hepatitis C Antibody Non-react sharron Non-reac tive [facility] Comment: Hepatitis C Antibody screen indicates [...] 9:45 AM CDT 07/28/2017 10:13 AM CDT us Rahul Acosta MD LAB - CHEMISTRY ORDERABLES Fin al Result [address] [phone] from Last 3 Months or Most Recently Relevant to Health Maintenance Insurance [facility] Advance Directives * Full Code (Latest Code Status on File) Date Activated Date Inactivated Comments 01/03/2018 2:55 PM 01/09/2018 9:27 PM * Full Code Date Activated Date Inactivated Comments 11/14/2017 3:32 PM 11/14/2017 8:37 PM * Full Code Date Activated Date Inactivated Comments 10/26/2017 5:38 PM 10/26/2017 9:42 PM Care Teams State Game Protector Relationship Specialty Start Date End Date Danyell Adam, IT SYSTEMS ENGINEER-METAL FURNITURE ASSEMBLY SUPERVISOR PCP - General 08/18/17
--- OUTSIDE RECORDS SUMMARY | 2024-12-04 08:24 | XMS_ITS | Clinical Summary ---
Author Organization [facility] Address [address] [place] [address] Phone Care Team Providers Care Special Effects Makeup Artist Name Role Phone Danyell Adam NP Primary Care Provider [phone] Allergies No known active allergies Social History Tobacco Use Types Packs/Day Years Used Date Smoking Tobacco: Never Assessed Comments No Sex and Gender Information Value Date Recorded Sex Assigned at Not on file Legal Sex Female 3:01 PM CONTROL CLERK AUDITING Gender Identity Not on file Sexual Orientation Not on file Plan of Treatment Health Maintenance Due Date Last Done Comments HPV VACCINES (1 - 3-dose series) 2003 DIABETES ANNUAL FOOT EXAM 2006 DIABETES ANNUAL RETINAL EXAM 2006 DIABETES MICROALBUMIN ANNUAL SCREEN 2006 LDL CHOLESTEROL ANNUAL 2006 HEPATITIS B VACCINES (1 of 3 - 19+ 3-dose series) 2007 HPV/Cotest (21-29) 2009 CERVICAL CANCER SCREENING 2018 HPV/Cotest (30-65) 2018 PAP SMEAR 2018 DIABETES HBA1C Q 6 MONTHS 06/29/2018 12/27/2017, INFLUENZA VACCINE (#1) 2024 7, 04/07/2014, 03/02/2010 DTAP/TDAP/TD VACCINES (2 - T d or Tdap) 11/15/2027 11/14/2017, 07/07/2007 Procedures Procedure Name Priority Date/Time Associated Diagnosis Comments HEMOGLOBIN A1C Routine 09/29/2015 2:22 PM CDT Pre-existing type 1 diabetes mellitus in in third trimester from Last 3 Months or Most Recently Relevant to Health Maintenance Results * (ABNORMAL) HEMOGLOBIN A1C (09/29/2015 2:22 PM CDT) HEMOGLOBIN A1C 6.3(H) 4.0 - 6.0 % 09/29/2015 5:06 PM CDT [facility] Comment:Note: Effective as o f 05/29/2014 a new methodology, Turbidimetric inhibition immunoassay (TINIA),has been implemented. EST. AVG GLUCOSE, A1C 134 mg/dL 09/29/2015 5:06 PM CDT [facility] Blood Venipuncture - L ab Collect / Unknown 09/29/2015 2:22 PM CDT 09/29/2015 2:39 PM CDT us Elan Barnes MD CHEMISTRY ORDERABLES Final Res ult [facility] [facility] CLIA# [id number] [address] [place] [address] from Last 3 Months or Most Recently Relevant to Health Maintenance Insurance [facility] PREFERRED Care Teams Special Effects Makeup Artist Relationship Specialty [place] [address] [address] PCP - General NURSE PRACTITIONER 06/17/15
--- OUTSIDE RECORDS SUMMARY | 2024-12-04 08:24 | XMS_ITS | Referral Summary ---
Author Organization [facility] Address [address] [address] Phone Care Team Providers Care Receiver Dispatcher Name Role Phone Savage Didi PHILIPPE Primary Care Provider [phone] Allergies No known active allergies Medications albuterol [...] pen 3 01/06/20 20 Active Dexcom G6 Community Development Planner miscIndications:Ty pe 1 diabetes mellitus with hyperglycemia [...] above. Assessment & Plan (05/05/2017 8:32 PM E COMMERCE STRATEGIST): As above. 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 MRI 04/18/17 1. 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 2. OTHERWISE NORMAL MRI OF THE LUMBAR SPINE. Assessment & Plan (05/05/2017 8:32 PM E COMMERCE STRATEGIST): Ongoing despite conservative therapy with medication and physical therapy. Will refer to Dr. Garcia for evaluation. Assessment & Plan (04/06/2017 8:42 PM E COMMERCE STRATEGIST): No relief with conservative therapy along with [...] appointment. Assessment & Plan (04/06/2017 8:44 PM E COMMERCE STRATEGIST): Hypertension is uncontrolled. . Dietary sodium restriction. [...] discussed. Assessment & Plan (05/05/2017 8:33 PM E COMMERCE STRATEGIST): Obesity is unchanged. Discussed the patient's BMI. The BMI is above average; BMI management plan is completed. General weight loss/lifestyle modification strategies discussed (elicit support from others; identify saboteurs; non-food rewards, etc). Assessment & Plan (04/06/2017 8:45 PM E COMMERCE STRATEGIST): Obesity is unchanged. Discussed the patient's BMI. The BMI is above average; BMI management plan is completed. General weight loss/lifestyle modification strategies discussed (elicit support from others; identify saboteurs; non-food rewards, etc). Assessment & Plan (03/19/2017 8:32 PM E COMMERCE STRATEGIST): Obesity is essentially stable. . Discussed the [...] months. Assessment & Plan (04/06/2017 8:43 PM E COMMERCE STRATEGIST): Diabetes is uncontrolled. Hgb A1c . Dietary [...] months. Assessment & Plan (03/19/2017 8:31 PM E COMMERCE STRATEGIST): Diabetes is uncontrolled. Hgb A1c 10.1. 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 on piter e Last Filed Vital Signs Vital Sign Reading Time Taken Comments Blood Pressure 120/74 04/09/2024 10:54 AM E COMMERCE STRATEGIST Pulse 90 04/09/2024 10:54 AM E COMMERCE STRATEGIST Temperature 36.8 C (98.3 F) 04/09/2024 10:54 AM E COMMERCE STRATEGIST Respiratory Rate 14 04/09/2024 10:54 AM E COMMERCE STRATEGIST Oxygen Saturation 100% 04/09/2024 10:54 AM E COMMERCE STRATEGIST Inhaled Oxygen Concentration - - Weight 88.5 kg (195 lb) 04/09/2024 9:09 AM E COMMERCE STRATEGIST Height 172.7 cm (5' 8) 04/09/2024 9:09 AM E COMMERCE STRATEGIST Body Mass Index 29.65 04/09/2024 9:09 AM E COMMERCE STRATEGIST Plan of Treatment Not on file Procedures Procedure Name Priority Date/Time Associated Diagnosis Comments EGFR STAT 04/09/2024 9:17 AM E COMMERCE STRATEGIST LIPID PANEL Routine 12/10/2019 9:32 AM CDT [...] Maintenance Results * eGFR (04/09/2024 9:17 AM E COMMERCE STRATEGIST) eGFR 66 >=60 mL/min/1. 73 m2 Comment: [...] last reviewed 2021. Blood 04/09/2024 9:17 AM E COMMERCE STRATEGIST 04/09/2024 9:19 AM E COMMERCE STRATEGIST Key Villagomez MD LAB BLOOD ORDERABLES Rebecca l Result [facility] [place] [address] * TSH reflex to free T4 (12/10/2019 9:32 AM CDT) TSH 1.83 0.30 - 4.20 mcIUnit/mL [facility] Blood specimen (specimen) 12/10/2019 9:32 AM CDT 12/10/2019 1:56 PM CDT us Nancy Mcfarland NP LAB BLOOD ORDERABLES Final R esult [facility] [place] [address] [address] [place] [address] * (ABNORMAL) Albumin Creatinine Ratio, Urine (12/10/2019 [...] CDT 12/10/2019 1:56 PM CDT Nancy Mcfarland FIFTH GRADE TEACHER LAB URINE ORDERABLES Final R esult [facility] [address] [address] [place] [address] * (ABNORMAL) Lipid panel (12/10/2019 9:32 AM [...] BLOOD ORDERABLES Final R esult [facility] [place] [address] [address] [place] [address] * (ABNORMAL) POCT hemoglobin A1c (12/10/2019 9:14 [...] Most Recently Relevant to Health Maintenance Insurance [facility] CHOICE PLUS [facility] OPEN ACCESS [facility] OPEN ACCESS [facility] CHOICE PLUS Care Teams Receiver Dispatcher Relationship Specialty Start Date End Date Didi Wan NP [address] [place] [address] PCP - General Nurse Practitioner 04/09/24
[2024-12-04 20:12] LABS: Albumin Level 4.2 g/dL (3.5-5.1); Anion Gap 6 mmol/L (4-12); Blood Urea Nitrogen 19 mg/dL (7-17); Calcium 9.0 mg/dL (8.4-10.2); Carbon Dioxide 25 mmol/L (22-30); Chloride 104 mmol/L (98-107); Estimated Glomerular Filt Rate 52; Glucose 144 mg/dL (65-110); Potassium 4.5 mmol/L (3.4-5.0); Sodium 135 mmol/L (137-145)
[2024-12-04 20:21] LABS: Parathyroid Intact 60.8 pg/mL (14.5-75.2)
[2024-12-04 20:34] LABS: Total Protein Urine Random 14 mg/dL; Ur Ttl Prot Creatinine Ratio 0.20 mg/mg (0-0.20)
== END 2024-12-04 08:14 | disposition home or self-care (01) ==
LOC: ANHBWCLAB 08:15
PROVIDERS: PCP Nurse Practitioner Adult Health; Visit Provider Internal Medicine Nephrology
DX: E10.22 Type 1 diabetes mellitus with diabetic chronic kidney disease (principal); I12.9 Hypertensive chronic kidney disease with stage 1 through stage 4 chronic kidney disease, or unspecified chronic kidney disease; N18.31 Chronic kidney disease, stage 3a; N25.81 Secondary hyperparathyroidism of renal origin; E55.9 Vitamin D deficiency, unspecified
CPT/HCPCS: 36415; 80069; 82306; 82570; 83970; 84156

== ENCOUNTER 2025-01-08 13:14 | Outpatient (CLI) | payer OTHER, SELFPAY ==
--- OUTSIDE RECORDS SUMMARY | 2025-01-08 14:29 | XMS_ITS | Clinical Summary ---
Author Organization [facility] Address [address] [place] [address] Phone Care Team Providers Care Multifocal Button Grinder Name Role Phone Isidoro Kenney MD Primary Care Provider [phone] Allergies No known active allergies Medications Insulin [...] Comments Blood Pressure 126/80 03/29/2022 10:25 AM HOUSEKEEPER SUPERVISOR Pulse 91 03/29/2022 10:25 AM HOUSEKEEPER SUPERVISOR Temperature 36.6 C (97.9 F) 03/29/2022 10:25 AM HOUSEKEEPER SUPERVISOR Respiratory Rate 20 03/29/2022 10:25 AM HOUSEKEEPER SUPERVISOR Oxygen Saturation 99% 03/29/2022 10:25 AM HOUSEKEEPER SUPERVISOR Inhaled Oxygen Concentration - - Weight - [...] Cervical Cancer Screening (CCS) 2018 HPV/Cotest 2018 Influenza Immunization (#1) 2025 09/0 01/2020, 02/06/2018, 04/06/2017, Additional history exists SARS-COV-2 Immunization (3 - 2024- season) 2025 07/25/2020, 06/27/2020 Respiratory Syncytial Virus (RSV) Immunization (Adult) (1 - 1-dose 75+ series) 2063 DTaP/Tdap/Td Immunization Discontinued 2017, 05/08/2008, 07/07/2007 TdaP Immunization Completed 11/14/2017 Meningococcal Immunization (ACWY) Aged Out No longer eligible based on patient's age to complete this topic Rotavirus Immunization Aged Out No lo nger eligible based on patient's age to complete this topic Insurance [facility] ALL SAVERS Care Teams Multifocal Button Grinder Relationship Specialty Start Date End Date Isidoro Kenney MD PCP - General Family Medicine 03/29/22
--- OUTSIDE RECORDS SUMMARY | 2025-01-08 14:29 | XMS_ITS | Clinical Summary ---
Author Organization [facility] Address [address] [place] [address] Care Team Providers Care Field Aide Name Role Phone Danyell Adam HEALTHCARE RECEPTIONIST-PATIENT CLERICAL ASSISTANT Primary Care Provide r Source Comments [facility],non-owned Affiliates and Associated Physician Practices is amultiple site organization consisting of ambulatory clinics and hospital sitesin [place], [place], [place] and [place]. This disclosure is being madepursuant to the Care Everywhere program and may not contain all information available regarding this patient. Last updated 18.[facility] Allergies No known active allergies Medications * [...] different from the original. 11/22/17 Request to [facility] Ethics re: Tubal ligation Approved [...] counting Proteinuria affecting 07/28/2017 Overview (09/18/2017): Saw [facility] nephrology. 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 Blood specimen (specimen) BLOOD SPECIMEN / Unknown 07/28/2017 9:45 AM CDT 07/28/2017 10:13 AM CDT us Rahul Acosta MD LAB - HEMATOLOGY ORDERABLES Fi nal Result [address] [phone] * HEPATITIS C AB SCREEN RFLX PCR QUANT (07/28/2017 9:45 AM CDT) Hepatitis C Antibody Non-react sharron Non-reac tive [facility] Comment: Hepatitis C Antibody screen indicates [...] LAB - CHEMISTRY ORDERABLES Fin al Result [address] [phone] from Last 3 Months or Most Recently Relevant to Health Maintenance Insurance [facility] Advance Directives * Full Code (Latest Code Status on File) Date Activated Date Inactivated Comments 01/03/2018 2:55 PM 01/09/2018 9:27 PM * Full Code Date Activated Date Inactivated Comments 11/14/2017 3:32 PM 11/14/2017 8:37 PM * Full Code Date Activated Date Inactivated Comments 10/26/2017 5:38 PM 10/26/2017 9:42 PM Care Teams Field Aide Relationship Specialty Start Date End Date Danyell Adam, HEALTHCARE RECEPTIONIST-PATIENT CLERICAL ASSISTANT PCP - General 08/18/17
--- OUTSIDE RECORDS SUMMARY | 2025-01-08 14:29 | XMS_ITS | Clinical Summary ---
Author Organization [facility] Address [address] [address] Phone Care Team Providers Care Railcar Switchman Name Role Phone Savage Didi PHILIPPE Primary Care Provider [phone] Allergies No known active allergies Medications albuterol [...] diabetes mellitus with other diabetic kidney complication USE TO INJECT INSULIN 5 TIMES DAILY 450 each 10/14/19 20 Active HumaLOG KwikPen Insulin 200 unit/mL (3 mL) insulin penIndications:Typ e 1 diabetes mellitus with hyperglycemia (HCC) INJECT SUBCUTANEOUSLY 0.1-0.15 ML (20-30 UNITS TOTAL) 3 TIMES DAILY WITH MEALS 27 pen 3 01/06/20 20 Active Dexcom G6 Drafting Engineer miscIndications:Ty pe 1 diabetes mellitus with hyperglycemia [...] above. Assessment & Plan (05/05/2017 8:32 PM PIANO REGULATOR): As above. 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 MRI 04/18/17 1. 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 2. OTHERWISE NORMAL MRI OF THE LUMBAR SPINE. Assessment & Plan (05/05/2017 8:32 PM PIANO REGULATOR): Ongoing despite conservative therapy with medication and physical therapy. Will refer to Dr. Garcia for evaluation. Assessment & Plan (04/06/2017 8:42 PM PIANO REGULATOR): No relief with conservative therapy along with [...] appointment. Assessment & Plan (04/06/2017 8:44 PM PIANO REGULATOR): Hypertension is uncontrolled. . Dietary sodium restriction. Regular aerobic exercise. Ambulatory blood pressure monitoring. Plan to start Losartan 100mg daily. Blood pressure will be reassessed in 2 weeks. Chronic cholecystitis 01/12/2016 Overview (08/13/2016): Chronic cholecystitis Infection of section or perineal wound 01/12/2016 Overview (08/13/2016): Wound infection following section, Biliary colic 01/12/2016 Overview (08/13/2016): Biliary colic Morbid obesity with BMI of 40.0-44.9, adult 10/2015 Overview (08/13/2016): Morbid obesity with BMI of [...] discussed. Assessment & Plan (05/05/2017 8:33 PM PIANO REGULATOR): Obesity is unchanged. Discussed the patient's BMI. The BMI is above average; BMI management plan is completed. General weight loss/lifestyle modification strategies discussed (elicit support from others; identify saboteurs; non-food rewards, etc). Assessment & Plan (04/06/2017 8:45 PM PIANO REGULATOR): Obesity is unchanged. Discussed the patient's BMI. The BMI is above average; BMI management plan is completed. General weight loss/lifestyle modification strategies discussed (elicit support from others; identify saboteurs; non-food rewards, etc). Assessment & Plan (03/19/2017 8:32 PM PIANO REGULATOR): Obesity is essentially stable. . Discussed the [...] affecting 07/28/2017 02/06/2018 Overview (02/06/2018): Overview: Saw [facility] nephrology. 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 Assessment & Plan (04/06/2017 8:43 PM PIANO REGULATOR): Diabetes is uncontrolled. Hgb A1c . Dietary [...] months. Assessment & Plan (03/19/2017 8:31 PM PIANO REGULATOR): Diabetes is uncontrolled. Hgb A1c 10.1. 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 Not on file Not on piter e Obstetrics History Para Term AB IAB SAB Ectopic Multiple Livin g Live Births 2 2 Date Outcome GA Total Labor Labor/2nd/3rd Weight Sex Type Anes PTL Ayanna A1 A5 Name Clin Para Para Last Filed Vital Signs Vital Sign Reading Time Taken Comments Blood Pressure 120/74 04/09/2024 10:54 AM PIANO REGULATOR Pulse 90 04/09/2024 10:54 AM PIANO REGULATOR Temperature 36.8 C (98.3 F) 04/09/2024 10:54 AM PIANO REGULATOR Respiratory Rate 14 04/09/2024 10:54 AM PIANO REGULATOR Oxygen Saturation 100% 04/09/2024 10:54 AM PIANO REGULATOR Inhaled Oxygen Concentration - - Weight 88.5 kg (195 lb) 04/09/2024 9:09 AM PIANO REGULATOR Height 172.7 cm (5' 8) 04/09/2024 9:09 AM PIANO REGULATOR Body Mass Index 29.65 04/09/2024 9:09 AM PIANO REGULATOR Plan of Treatment Health Maintenance Due Date Last Done Comments Hepatitis C Screening 1988 Hepatitis B Screening 2006 Pneumococcal vaccine <65 (1 of 2 - PCV) 2007 HPV Vaccines (1 - 3-dose SCD M series) 2015 Varicella Vaccines (1 of 2 - 13+ 2-dose series) 12/12/2015 Cervical Cancer Screening 06/06/2019 06/06/2018 Hemoglobin A1C [...] 04/06/2017, Additional history exists eGFR 04/09/2025 04/09/2024, 08/0 08/2019, 09/26/2018, Additional history exists DTaP/Tdap/Td Vaccine (2 - Td or Tdap) 11/15/2027 11/14/2017, 05/08/2008, 07/07/2007 Procedures Procedure Name Priority Date/Time Associated Diagnosis Comments EGFR STAT 04/09/2024 9:17 AM PIANO REGULATOR LIPID PANEL Routine 12/10/2019 9:32 AM CDT [...] Maintenance Results * eGFR (04/09/2024 9:17 AM PIANO REGULATOR) eGFR 66 >=60 mL/min/1. 73 m2 Comment: [...] last reviewed 2021. Blood 04/09/2024 9:17 AM PIANO REGULATOR 04/09/2024 9:19 AM PIANO REGULATOR us Key Villagomez MD LAB BLOOD ORDERABLES Rebecca talavera Result [facility] [address] [facility] [place] [address] * TSH reflex to free T4 (12/10/2019 9:32 AM CDT) TSH 1.83 0.30 - 4.20 mcIUnit/mL [facility] Blood specimen (specimen) 12/10/2019 9:32 AM CDT 12/10/2019 1:56 PM CDT Nancy Mcfarland TOBACCO WRAPPING MACHINE TENDER LAB BLOOD ORDERABLES Final R esult Performing Organization Address [facility] de Phone Number [facility] [address] [place] [address] * (ABNORMAL) Albumin Creatinine Ratio, Urine (12/10/2019 9:32 AM CDT) Albumin Ur 313.1 mg/L [facility] Comment: Interpretive Data No reference range established. Current interpretive data was last revised 2018. Creatinine Ur 29.0 mg/dL [facility] Comment: Interpretive Data No reference range established. Current interpretive data was last revised 2018. Albumin Creatinine Ratio, Ur 1,080(H) 1 - 29 mg/g [facility] Urine 12/10/2019 9:32 AM CDT 12/10/2019 1:56 PM CDT Nancy Mcfarland TOBACCO WRAPPING MACHINE TENDER LAB URINE ORDERABLES Final R esult Performing Organization Address [facility] Co de Phone Number [facility] [address] Department [place] [address] * (ABNORMAL) Lipid panel (12/10/2019 9:32 AM [...] BLOOD ORDERABLES Final R esult [facility] [address] [place] [address] * (ABNORMAL) POCT hemoglobin A1c (12/10/2019 9:14 [...] Most Recently Relevant to Health Maintenance Insurance [id number] H[facility]/PPO Address: [address] [place], [place] [id number] [employer] OPEN ACCESS Member Subscriber Plan / Payer (Ef fective 2021-Present) Name:Aure Maldonado Relation to Subscriber:Self Name:Aure Maldonado Payer ID:[id number] ([facility]) Type:[employer] HMO/PPO Address: [facility] [address] [place] [address] [facility] H[facility]/PPO Address: [place] [id number] [employer] OPEN ACCESS [facility] HMO/PPO Address: [address] [address] [place] [address] Care Teams Railcar Switchman Relationship Specialty Start Date End Date Didi Wan NP [address] [place] [address] PCP - General Nurse Practitioner 04/09/24
--- OUTSIDE RECORDS SUMMARY | 2025-01-08 14:29 | XMS_ITS | Clinical Summary ---
Author Organization [facility] Address [address] [place] [address] Phone Care Team Providers Care Executive Chef Assistant Name Role Phone Ivan Blunt DO Primary Care Provider [phone] Allergies No known active allergies Medications albuterol HFA (PROVENTIL HFA) 108 (90 Base) MCG/ACT inhaler Inhale 2 puffs 8 Active atorvastatin (LIPITOR) 20 MG tablet Take 20 mg by mouth 1 (one) time each day 1 Active amLODIPine (NORVASC) 10 MG tablet Take 10 mg by mouth daily 0 Active cholecalcifero l (VITAMIN D-3) 50 MCG (1999) capsule 1 Active Continuous Blood Gluc Pattern Marker (Dexcom G6 Pattern Marker) device USE TO CHECK BLOOD SUGAR 1 [...] a prior Proteinuria 07/28/2017 Overview (12/29/2020): Saw [facility] nephrology. 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
--- OUTSIDE RECORDS SUMMARY | 2025-01-08 14:29 | XMS_ITS | Clinical Summary ---
Author Organization [facility] Address [address] [place] [address] Phone Care Team Providers Care Organisational Psychologist Name Role Phone Danyell Adam NP Primary Care Provider [phone] Allergies No known active allergies Social History Tobacco Use Types Packs/Day Years Used Date Smoking Tobacco: Never Assessed Comments No Sex and Gender Information Value Date Recorded Sex Assigned at Not on file Legal Sex Female 3:01 PM POWER GRADER OPERATOR Gender Identity Not on file Sexual Orientation Not on file Plan of Treatment Health Maintenance Due Date Last Done Comments DIABETES ANNUAL FOOT EXAM 2006 DIABETES ANNUAL RETINAL EXAM 2006 DIABETES MICROALBUMIN ANNUAL SCREEN 2006 LDL CHOLESTEROL ANNUAL 2006 HEPATITIS B VACCINES (1 of 3 - 19+ 3-dose series) 2007 HPV/Cotest (21-29) 2009 HPV VACCINES (1 - 3-dose SCDM series) 2015 CERVICAL CANCER SCREENING 2018 HPV/Cotest (30-65) 2018 [...] - 6.0 % 09/29/2015 5:06 PM CDT [facility] Comment:Note: Effective as o f 05/29/2014 a new methodology, Turbidimetric inhibition immunoassay (TINIA),has been implemented. EST. AVG GLUCOSE, A1C 134 mg/dL 09/29/2015 5:06 PM CDT [facility] Blood Venipuncture - L ab Collect / Unknown 09/29/2015 2:22 PM CDT 09/29/2015 2:39 PM CDT us Elan Barnes MD CHEMISTRY ORDERABLES Final Res ult [facility] [employer] [facility] CLIA# [id number] [address] [place] [address] from Last 3 Months or Most Recently Relevant to Health Maintenance Insurance [facility] Care Teams Organisational Psychologist Relationship Specialty [place] [address] [address] PCP - General NURSE PRACTITIONER 06/17/15
--- OUTSIDE RECORDS SUMMARY | 2025-01-08 14:29 | XMS_ITS | Encounter Summary ---
Author Organization 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
[2025-01-08 18:31] LABS: Hematocrit 37.0 % (37.0-47.0); Hemoglobin 11.9 g/dL (12.0-15.0); Mean Corpuscular HGB Conc 32.2 g/dl (32-36); Mean Corpuscular Hemoglobin 29.1 pg (26-34); Mean Corpuscular Volume 90.5 fl (80-100); Platelet Count Result 260 k/mm3 (150-375); Red Blood Count 4.09 M/mm3 (4.2-5.4); White Blood Count 6.3 K/mm3 (4.5-10.0)
[2025-01-08 18:56] LABS: Free T4 Free Thyroxine 1.43 ng/dL (0.78-2.19)
[2025-01-08 19:12] LABS: Thyroid Stimulating Hormone 1.130 uIU/mL (0.465-4.680)
== END 2025-01-08 13:15 | disposition home or self-care (01) ==
LOC: ANHBWCLAB 13:16
PROVIDERS: PCP Nurse Practitioner Adult Health; Visit Provider Obstetrics & Gynecology Gynecology
DX: N92.6 Irregular menstruation, unspecified (principal)
CPT/HCPCS: 36415; 84439; 84443; 85027

== ENCOUNTER 2025-01-15 09:49 | Outpatient (CLI) | payer OTHER, SELFPAY ==
--- NOTE | ~2025-01-15 | US_ITS ---
EXAMINATION: US pelvic complete w TV, 01/15/2025 9:54 CDT HISTORY: ABNORMAL UTERINE BLEEDING Comparison: None Technique: Pal-scale and color Doppler images were obtained. Findings: Uterus: Uterus anteverted 8.6 x 6 x 4.3 cm. . Endometrium 8 mm. Right Ovary:Right ovary 3.6 x 3 x 3.3 cm, no adnexal mass, normal flow. Left Ovary: Left ovary 3 x 2.8 x 3.3 cm, no adnexal mass, normal flow Free Fluid: None Impression: No acute abnormality. Reviewed, dictated and finalized at location A. Impression: No acute abnormality.
--- OUTSIDE RECORDS SUMMARY | 2025-01-15 10:39 | XMS_ITS | Clinical Summary ---
Author Organization [facility] Address [address] [place] [address] Care Team Providers Care Gasoline Dragline Operator Name Role Phone Danyell Adam DATA ANALYTICS CHIEF SCIENTIST-BASKET MACHINE OPERATOR Primary Care Provide r Source Comments [facility],non-owned Affiliates and Associated Physician Practices is amultiple site organization consisting of ambulatory clinics and hospital sitesin [place], [place], [place] and [place]. This disclosure is being madepursuant to the Care Everywhere program and may not contain all information available regarding this patient. Last updated 18.[facility] Allergies No known active allergies Medications * [...] different from the original. 11/22/17 Request to [facility] Ethics re: Tubal ligation Approved Problem Noted [...] counting Proteinuria affecting 07/28/2017 Overview (09/18/2017): Saw [facility] nephrology. 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 Blood specimen (specimen) BLOOD SPECIMEN / Unknown 07/28/2017 9:45 AM CDT 07/28/2017 10:13 AM CDT us Rahul Acosta MD LAB - HEMATOLOGY ORDERABLES Fi nal Result [address] [phone] * HEPATITIS C AB SCREEN RFLX PCR QUANT (07/28/2017 9:45 AM CDT) Hepatitis C Antibody Non-react sharron Non-reac tive [facility] Comment: Hepatitis C Antibody screen indicates [...] LAB - CHEMISTRY ORDERABLES Fin al Result [address] [phone] from Last 3 Months or Most Recently Relevant to Health Maintenance Insurance [facility] Advance Directives * Full Code (Latest Code Status on File) Date Activated Date Inactivated Comments 01/03/2018 2:55 PM 01/09/2018 9:27 PM * Full Code Date Activated Date Inactivated Comments 11/14/2017 3:32 PM 11/14/2017 8:37 PM * Full Code Date Activated Date Inactivated Comments 10/26/2017 5:38 PM 10/26/2017 9:42 PM Care Teams Gasoline Dragline Operator Relationship Specialty Start Date End Date Danyell Adam, DATA ANALYTICS CHIEF SCIENTIST-BASKET MACHINE OPERATOR PCP - General 08/18/17
--- OUTSIDE RECORDS SUMMARY | 2025-01-15 10:39 | XMS_ITS | Clinical Summary ---
Author Organization [facility] Address [address] [place] [address] Phone Care Team Providers Care Cargoman Name Role Phone Danyell Adam NP Primary Care Provider [phone] Allergies No known active allergies Social History Tobacco Use Types Packs/Day Years Used Date Smoking Tobacco: Never Assessed Comments No Sex and Gender Information Value Date Recorded Sex Assigned at Not on file Legal Sex Female 3:01 PM SMALL ANIMAL VETERINARIAN Gender Identity Not on file Sexual Orientation [...] - 6.0 % 09/29/2015 5:[address] [facility] Comment:Note: Effective as o f 05/29/2014 a new methodology, Turbidimetric inhibition immunoassay (TINIA),has been implemented. EST. AVG GLUCOSE, A1C 134 mg/dL 09/29/2015 5:[address] [facility] Blood Venipuncture - L ab Collect / Unknown 09/29/2015 2:22 PM CDT 09/29/2015 2:39 PM CDT us Elan Barnes MD CHEMISTRY ORDERABLES Final Res ult [facility] [employer] [facility] CLIA# [id number] [address] [place] [address] from Last 3 Months or Most Recently Relevant to Health Maintenance Insurance [facility] Care Teams Cargoman Relationship Specialty [place] [address] [address] PCP - General NURSE PRACTITIONER 06/17/15
--- OUTSIDE RECORDS SUMMARY | 2025-01-15 10:39 | XMS_ITS | Encounter Summary ---
Author Organization [facility] Address [address] [place] [address] Care Team Providers Care Union Organiser Name Role Phone Danyell Adam REFRIGERATION MECHANIC-DISTANCE LEARNING COORDINATOR Primary Care Provide r Reason for Visit * Reason Onset Date Comments MEDICATION REFILL 12/28/2017 Encounter Details Date Type Department Care Team (Late st Contact Info) Description 12/28/2017 Refill [facility] [address] [place] [address] [place] MD [address] [address] MEDICATION REFILL Social History Tobacco [...] Job 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
--- OUTSIDE RECORDS SUMMARY | 2025-01-15 10:39 | XMS_ITS | Clinical Summary ---
Author Organization [facility] Address [address] [address] Phone Care Team Providers Care Gas Regulator Repairer Helper Name Role Phone Savage Didi PHILIPPE Primary Care Provider [phone] Allergies No known active allergies Medications albuterol [...] pen 3 01/06/20 20 Active Dexcom G6 Public Affairs Specialist miscIndications:Ty pe 1 diabetes mellitus with [...] above. Assessment & Plan (05/05/2017 8:32 PM DISEASE MANAGEMENT NURSE): As above. 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 MRI 04/18/17 1. 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 2. OTHERWISE NORMAL MRI OF THE LUMBAR SPINE. Assessment & Plan (05/05/2017 8:32 PM DISEASE MANAGEMENT NURSE): Ongoing despite conservative therapy with medication and physical therapy. Will refer to Dr. Garcia for evaluation. Assessment & Plan (04/06/2017 8:42 PM DISEASE MANAGEMENT NURSE): No relief with conservative therapy along with [...] appointment. Assessment & Plan (04/06/2017 8:44 PM DISEASE MANAGEMENT NURSE): Hypertension is uncontrolled. . Dietary sodium restriction. [...] discussed. Assessment & Plan (05/05/2017 8:33 PM DISEASE MANAGEMENT NURSE): Obesity is unchanged. Discussed the patient's BMI. The BMI is above average; BMI management plan is completed. General weight loss/lifestyle modification strategies discussed (elicit support from others; identify saboteurs; non-food rewards, etc). Assessment & Plan (04/06/2017 8:45 PM DISEASE MANAGEMENT NURSE): Obesity is unchanged. Discussed the patient's BMI. The BMI is above average; BMI management plan is completed. General weight loss/lifestyle modification strategies discussed (elicit support from others; identify saboteurs; non-food rewards, etc). Assessment & Plan (03/19/2017 8:32 PM DISEASE MANAGEMENT NURSE): Obesity is essentially stable. . Discussed the [...] affecting 07/28/2017 02/06/2018 Overview (02/06/2018): Overview: Saw [facility] nephrology. 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 Assessment & Plan (04/06/2017 8:43 PM DISEASE MANAGEMENT NURSE): Diabetes is uncontrolled. Hgb A1c . Dietary [...] months. Assessment & Plan (03/19/2017 8:31 PM DISEASE MANAGEMENT NURSE): Diabetes is uncontrolled. Hgb A1c 10.1. 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 on piter e Obstetrics History Para Term AB IAB SAB Ectopic Multiple Livin g Live Births 2 2 Date Outcome GA Total Labor Labor/2nd/3rd Weight Sex Type Anes PTL Ayanna A1 A5 Name Clin Para Para Last Filed Vital Signs Vital Sign Reading Time Taken Comments Blood Pressure 120/74 04/09/2024 10:54 AM DISEASE MANAGEMENT NURSE Pulse 90 04/09/2024 10:54 AM DISEASE MANAGEMENT NURSE Temperature 36.8 C (98.3 F) 04/09/2024 10:54 AM DISEASE MANAGEMENT NURSE Respiratory Rate 14 04/09/2024 10:54 AM DISEASE MANAGEMENT NURSE Oxygen Saturation 100% 04/09/2024 10:54 AM DISEASE MANAGEMENT NURSE Inhaled Oxygen Concentration - - Weight 88.5 kg (195 lb) 04/09/2024 9:09 AM DISEASE MANAGEMENT NURSE Height 172.7 cm (5' 8) 04/09/2024 9:09 AM DISEASE MANAGEMENT NURSE Body Mass Index 29.65 04/09/2024 9:09 AM DISEASE MANAGEMENT NURSE Plan of Treatment Health Maintenance Due Date [...] Diagnosis Comments EGFR STAT 04/09/2024 9:17 AM DISEASE MANAGEMENT NURSE LIPID PANEL Routine 12/10/2019 9:32 AM CDT [...] Maintenance Results * eGFR (04/09/2024 9:17 AM DISEASE MANAGEMENT NURSE) eGFR 66 >=60 mL/min/1. 73 m2 Comment: [...] last reviewed 2021. Blood 04/09/2024 9:17 AM DISEASE MANAGEMENT NURSE 04/09/2024 9:19 AM DISEASE MANAGEMENT NURSE us Key Villagomez MD LAB BLOOD ORDERABLES Rebecca talavera Result СВ[facility]ТЛ[facility]НА [facility] ([place] [address] [facility] Department [place] [address] * TSH reflex to free T4 (12/10/2019 9:32 AM CDT) TSH 1.83 0.30 - 4.20 mcIUnit/mL [facility] Blood specimen (specimen) 12/10/2019 9:32 AM CDT 12/10/2019 1:56 PM CDT Nancy Mcfarland LOADING RACK SUPERVISOR LAB BLOOD ORDERABLES Final R esult Performing Organization Address [facility] de Phone Number [facility] [place] [address] [address] [place] [address] * (ABNORMAL) Albumin Creatinine Ratio, Urine (12/10/2019 9:32 AM CDT) Albumin Ur 313.1 mg/L СВЕТЛАНА Comment: Interpretive Data No reference range established. Current interpretive data was last revised 2018. Creatinine Ur 29.0 mg/dL СВЕТЛАНА Comment: Interpretive Data No reference range established. Current interpretive data was last revised 2018. Albumin Creatinine Ratio, Ur 1,080(H) 1 - 29 mg/g [facility] Urine 12/10/2019 9:32 AM CDT 12/10/2019 1:56 PM CDT Nancy Mcfarland LOADING RACK SUPERVISOR LAB URINE ORDERABLES Final R esult Performing Organization Address [facility] Co de Phone Number [facility] [address] Department [place] [address] * (ABNORMAL) Lipid panel (12/10/2019 9:32 AM [...] BLOOD ORDERABLES Final R esult [facility]НА [facility] [address] [address] Department [place] [address] * (ABNORMAL) POCT hemoglobin A1c (12/10/2019 9:14 [...] Most Recently Relevant to Health Maintenance Insurance [id number] CHOICE PLUS [employer] OPEN ACCESS CHOICE PLUS Member Subscriber Plan / Payer ( fective 2018-Present) Name:Aure Maldonado Relation to Subscriber:Self Name:Aure Maldonado Payer ID:[id number] (NA) Type:[facility] HMO/PPO Address: [place] [phone] [employer] OPEN ACCESS [facility] CHOICE PLUS Care Teams Gas Regulator Repairer Helper Relationship Specialty Start Date End Date Didi Wan NP [address] [place] [address] PCP - General Nurse Practitioner 04/09/24
--- OUTSIDE RECORDS SUMMARY | 2025-01-15 10:39 | XMS_ITS | Clinical Summary ---
Author Organization [facility] Address [address] [place] [address] Phone Care Team Providers Care Television Producer Name Role Phone Ivan Blunt DO Primary Care Provider [phone] Allergies No known active allergies Medications albuterol HFA (PROVENTIL HFA) 108 (90 Base) MCG/ACT inhaler Inhale 2 puffs 8 Active atorvastatin (LIPITOR) 20 MG tablet Take 20 mg by mouth 1 (one) time each day 1 Active amLODIPine (NORVASC) 10 MG tablet Take 10 mg by mouth daily 0 Active cholecalcifero l (VITAMIN D-3) 50 MCG (1999) capsule 1 Active Continuous Blood Gluc Pleat Taper (Dexcom G6 Pleat Taper) device USE TO CHECK BLOOD SUGAR 1 [...] a prior Proteinuria 07/28/2017 Overview (12/29/2020): Saw [facility] nephrology. 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
--- OUTSIDE RECORDS SUMMARY | 2025-01-15 10:39 | XMS_ITS | Clinical Summary ---
Author Organization [facility] Address [address] [place] [address] Phone Care Team Providers Care Sediment Remediation Consultant Name Role Phone Isidoro Kenney MD Primary Care Provider [phone] Allergies No known active allergies Medications Insulin [...] Comments Blood Pressure 126/80 03/29/2022 10:25 AM KEY PUNCH OPERATOR Pulse 91 03/29/2022 10:25 AM KEY PUNCH OPERATOR Temperature 36.6 C (97.9 F) 03/29/2022 10:25 AM KEY PUNCH OPERATOR Respiratory Rate 20 03/29/2022 10:25 AM KEY PUNCH OPERATOR Oxygen Saturation 99% 03/29/2022 10:25 AM KEY PUNCH OPERATOR Inhaled Oxygen Concentration - - Weight - [...] patient's age to complete this topic Insurance [facility] SAVERS Care Teams Sediment Remediation Consultant Relationship Specialty Start Date End Date Isidoro Kenney MD PCP - General Family Medicine 03/29/22
== END 2025-01-15 09:50 | disposition home or self-care (01) ==
PROVIDERS: PCP Nurse Practitioner Adult Health; Visit Provider Obstetrics & Gynecology Gynecology
DX: N93.8 Other specified abnormal uterine and vaginal bleeding (principal)
CPT/HCPCS: 76830; 76856

== ENCOUNTER 2025-02-17 11:24 | Outpatient (CLI) | payer OTHER, SELFPAY ==
--- NOTE | 2025-02-17 11:38 | ECG_ITS ---
Test Date: 2025-02-17 11:46:55 Measurements Intervals [place] Rate: 77 P: 69 AL: 137 QRS: 68 QRSD: 96 T: 60 QT: 351 QTc: 399 Interpretive Statements SINUS RHYTHM BASELINE ARTIFACT- I, III, AVL NORMAL ECG No previous ECG available for comparison Electronically Signed On 02-17-2025 15:50:12 CDT by Devonte Gomes D.O.
[2025-02-17 12:43] LABS: Anion Gap 4 mmol/L (4-12); Blood Urea Nitrogen 19 mg/dL (7-17); Calcium 8.8 mg/dL (8.4-10.2); Carbon Dioxide 29 mmol/L (22-30); Chloride 102 mmol/L (98-107); Estimated Glomerular Filt Rate 53; Glucose 106 mg/dL (65-110); Potassium 4.5 mmol/L (3.4-5.0); Sodium 135 mmol/L (137-145)
--- OUTSIDE RECORDS SUMMARY | 2025-02-17 12:51 | XMS_ITS | Clinical Summary ---
Author Organization [facility] Address [address] [address] Phone Care Team Providers Care Foster Care Social Worker Name Role Phone Savage Didi PHILIPPE Primary Care Provider [phone] Allergies No known active allergies Medications albuterol [...] pen 3 01/06/20 20 Active Dexcom G6 Associate Application Developer miscIndications:Ty pe 1 diabetes mellitus with hyperglycemia [...] above. Assessment & Plan (05/05/2017 8:32 PM PROJECT FINANCIAL ANALYST): As above. 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 MRI 04/18/17 1. 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 2. OTHERWISE NORMAL MRI OF THE LUMBAR SPINE. Assessment & Plan (05/05/2017 8:32 PM PROJECT FINANCIAL ANALYST): Ongoing despite conservative therapy with medication and physical therapy. Will refer to Dr. Garcia for evaluation. Assessment & Plan (04/06/2017 8:42 PM PROJECT FINANCIAL ANALYST): No relief with conservative therapy along [...] appointment. Assessment & Plan (04/06/2017 8:44 PM PROJECT FINANCIAL ANALYST): Hypertension is uncontrolled. . Dietary sodium [...] discussed. Assessment & Plan (05/05/2017 8:33 PM PROJECT FINANCIAL ANALYST): Obesity is unchanged. Discussed the patient's BMI. The BMI is above average; BMI management plan is completed. General weight loss/lifestyle modification strategies discussed (elicit support from others; identify saboteurs; non-food rewards, etc). Assessment & Plan (04/06/2017 8:45 PM PROJECT FINANCIAL ANALYST): Obesity is unchanged. Discussed the patient's BMI. The BMI is above average; BMI management plan is completed. General weight loss/lifestyle modification strategies discussed (elicit support from others; identify saboteurs; non-food rewards, etc). Assessment & Plan (03/19/2017 8:32 PM PROJECT FINANCIAL ANALYST): Obesity is essentially stable. . Discussed [...] affecting 07/28/2017 02/06/2018 Overview (02/06/2018): Overview: Saw [facility] nephrology. 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 Assessment & Plan (04/06/2017 8:43 PM PROJECT FINANCIAL ANALYST): Diabetes is uncontrolled. Hgb A1c . [...] months. Assessment & Plan (03/19/2017 8:31 PM PROJECT FINANCIAL ANALYST): Diabetes is uncontrolled. Hgb A1c 10.1. 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 on file Not on file Not on piter e Obstetrics History Para Term AB IAB SAB Ectopic Multiple Livin g Live Births 2 2 Date Outcome GA Total Labor Labor/2nd/3rd Weight Sex Type Anes PTL Ayanna A1 A5 Name Clin Para Para Last Filed Vital Signs Vital Sign Reading Time Taken Comments Blood Pressure 120/74 04/09/2024 10:54 AM PROJECT FINANCIAL ANALYST Pulse 90 04/09/2024 10:54 AM PROJECT FINANCIAL ANALYST Temperature 36.8 C (98.3 F) 04/09/2024 10:54 AM PROJECT FINANCIAL ANALYST Respiratory Rate 14 04/09/2024 10:54 AM PROJECT FINANCIAL ANALYST Oxygen Saturation 100% 04/09/2024 10:54 AM PROJECT FINANCIAL ANALYST Inhaled Oxygen Concentration - - Weight 88.5 kg (195 lb) 04/09/2024 9:09 AM PROJECT FINANCIAL ANALYST Height 172.7 cm (5' 8) 04/09/2024 9:09 AM PROJECT FINANCIAL ANALYST Body Mass Index 29.65 04/09/2024 9:09 AM PROJECT FINANCIAL ANALYST Plan of Treatment Health Maintenance Due Date [...] Diagnosis Comments EGFR STAT 04/09/2024 9:17 AM PROJECT FINANCIAL ANALYST LIPID PANEL Routine 12/10/2019 9:32 AM [...] Maintenance Results * eGFR (04/09/2024 9:17 AM PROJECT FINANCIAL ANALYST) eGFR 66 >=60 mL/min/1. 73 m2 [...] last reviewed 2021. Blood 04/09/2024 9:17 AM PROJECT FINANCIAL ANALYST 04/09/2024 9:19 AM PROJECT FINANCIAL ANALYST us Key Villagomez MD LAB BLOOD ORDERABLES Rebecca l Result [facility] [place] 1 [facility] Department [place] [address] * TSH reflex to free T4 (12/10/2019 9:32 AM CDT) TSH 1.83 0.30 - 4.20 mcIUnit/mL [facility] Blood specimen (specimen) 12/10/2019 9:32 AM CDT 12/10/2019 1:56 PM CDT Nancy Mcfarland CERTIFIED ETHICAL HACKER LAB BLOOD ORDERABLES Final R esult Performing Organization Address [facility] Co de Phone Number СВЕТЛАНА [address] [address] [employer] [place], [place] [id number] * (ABNORMAL) Albumin Creatinine Ratio, Urine (12/10/2019 9:32 AM CDT) Albumin Ur 313.1 mg/L СВ[facility]ЛАНА Comment: Interpretive Data No reference range established. Current interpretive data was last revised 2018. Creatinine Ur 29.0 mg/dL СВ[facility] Comment: Interpretive Data No reference range established. Current interpretive data was last revised 2018. Albumin Creatinine Ratio, Ur 1,080(H) 1 - 29 mg/g [facility] Urine 12/10/2019 9:32 AM CDT 12/10/2019 1:56 PM CDT Nancy Mcfarland CERTIFIED ETHICAL HACKER LAB URINE ORDERABLES Final R esult Performing Organization Address [facility] Co de Phone Number СВ[facility]ТЛАНА [facility] [address] [address] [place] [place] [address] * (ABNORMAL) Lipid panel (12/10/2019 9:32 AM [...] LAB BLOOD ORDERABLES Final R esult С[facility] [address] [address] Department [place] [address] * (ABNORMAL) POCT hemoglobin A1c (12/10/2019 9:14 [...] Most Recently Relevant to Health Maintenance Insurance [id number] OPEN ACCESS CHOICE PLUS [id number] OPEN ACCESS [facility] CHOICE PLUS Care Teams Foster Care Social Worker Relationship Specialty Start Date End Date Didi Wan NP [address] [place] [address] PCP - General Nurse Practitioner 04/09/24
--- OUTSIDE RECORDS SUMMARY | 2025-02-17 12:51 | XMS_ITS | Clinical Summary ---
Author Organization [facility] Address [address] [place] [address] Phone Care Team Providers Care High School Agriculture Teacher Name Role Phone Ivan Blunt DO Primary Care Provider [phone] Allergies No known active allergies Medications albuterol HFA (PROVENTIL HFA) 108 (90 Base) MCG/ACT inhaler Inhale 2 puffs 8 Active atorvastatin (LIPITOR) 20 MG tablet Take 20 mg by mouth 1 (one) time each day 1 Active amLODIPine (NORVASC) 10 MG tablet Take 10 mg by mouth daily 0 Active cholecalcifero l (VITAMIN D-3) 50 MCG (1999) capsule 1 Active Continuous Blood Gluc Hand Molder Meat (Dexcom G6 Hand Molder Meat) device USE TO CHECK BLOOD SUGAR 1 [...] a prior Proteinuria 07/28/2017 Overview (12/29/2020): Saw [facility] nephrology. 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 diabetes [...] , 02/06/2018, 04/06/2017, Additional history exists Insurance [facility] Care Teams High School Agriculture Teacher Relationship Specialty Start Date End Date Ivan Blunt DO [address] [place] [address] PCP - General Family Medicine 10/26/20
--- OUTSIDE RECORDS SUMMARY | 2025-02-17 12:51 | XMS_ITS | Clinical Summary ---
Author Organization [facility] [employer] Address [address] [place] [address] Care Team Providers Care Caddy Name Role Phone Danyell Adam BUG TRIMMER-DOOR SERVICEMAN Primary Care Provide r Source Comments [facility] [employer],non-owned Affiliates and Associated Physician Practices is amultiple site organization consisting of ambulatory clinics and hospital sitesin [place], [place], [place] and [place]. This disclosure is being madepursuant to the Care Everywhere program and may not contain all information available regarding this patient. Last updated 18.[facility] [employer] Allergies No known active allergies Medications * [...] different from the original. 11/22/17 Request to [facility] Ethics re: Tubal ligation [...] counting Proteinuria affecting 07/28/2017 Overview (09/18/2017): Saw [facility] nephrology. 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 Advance Directives * Full Code (Latest Code Status on File) Date Activated Date Inactivated Comments 01/03/2018 2:55 PM 01/09/2018 9:27 PM * Full Code Date Activated Date Inactivated Comments 11/14/2017 3:32 PM 11/14/2017 8:37 PM * Full Code Date Activated Date Inactivated Comments 10/26/2017 5:38 PM 10/26/2017 9:42 PM Care Teams Caddy Relationship Specialty Start Date End Date Danyell Adam, BUG TRIMMER-DOOR SERVICEMAN PCP - General 08/18/17
--- OUTSIDE RECORDS SUMMARY | 2025-02-17 12:51 | XMS_ITS | Encounter Summary ---
Author Organization [facility] Address [address] [place] [address] Care Team Providers Care Real Estate Analyst Name Role Phone Danyell Adam MATE FOURTH-TALENT DEVELOPMENT DIRECTOR Primary Care Provide r Reason for Visit * Reason Onset Date Comments MEDICATION REFILL 12/28/2017 Encounter Details Date Type Department Care Team (Late st Contact Info) Description 12/28/2017 Refill [facility] [address] [place] [address] BartonEmely hartley MD [address] [address] MEDICATION REFILL Social History Tobacco [...] Industry 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
--- OUTSIDE RECORDS SUMMARY | 2025-02-17 12:51 | XMS_ITS | Clinical Summary ---
Author Organization [facility] Address [address] [place] [address] Phone Care Team Providers Care Box Printer Name Role Phone Danyell Adam NP Primary Care Provider [phone] Allergies No known active allergies Social History Tobacco Use Types Packs/Day Years Used Date Smoking Tobacco: Never Assessed Comments No Sex and Gender Information Value Date Recorded Sex Assigned at Not on file Legal Sex Female 3:01 PM LAN ENGINEER Gender Identity Not on file Sexual Orientation [...] - 6.0 % 09/29/2015 5:06 PM CDT [facility] Comment:Note: Effective as o f 05/29/2014 a new methodology, Turbidimetric inhibition immunoassay (TINIA),has been implemented. EST. AVG GLUCOSE, A1C 134 mg/dL 09/29/2015 5:06 PM CDT [facility] Blood Venipuncture - L ab Collect / Unknown 09/29/2015 2:22 PM CDT 09/29/2015 2:39 PM CDT us Elan Barnes MD CHEMISTRY ORDERABLES Final Res ult [facility] Primeloop [facility] CLIA# [id number] [address] [place] [address] from Last 3 Months or Most Recently Relevant to Health Maintenance Insurance [facility] PREFERRED Care Teams Box Printer Relationship Specialty [place] [address] [address] PCP - General NURSE PRACTITIONER 06/17/15
--- OUTSIDE RECORDS SUMMARY | 2025-02-17 12:51 | XMS_ITS | Clinical Summary ---
Author Organization [facility] Address [address] [place] [address] Phone Care Team Providers Care District Director Name Role Phone Isidoro Kenney MD Primary Care Provider [phone] Allergies No known active allergies Medications Insulin [...] Comments Blood Pressure 126/80 03/29/2022 10:25 AM BOAT HOP Pulse 91 03/29/2022 10:25 AM BOAT HOP Temperature 36.6 C (97.9 F) 03/29/2022 10:25 AM BOAT HOP Respiratory Rate 20 03/29/2022 10:25 AM BOAT HOP Oxygen Saturation 99% 03/29/2022 10:25 AM BOAT HOP Inhaled Oxygen Concentration - - Weight - [...] patient's age to complete this topic Insurance [facility] ALL SAVERS Care Teams District Director Relationship Specialty Start Date End Date Isidoro Kenney MD PCP - General Family Medicine 03/29/22
== END 2025-02-17 11:25 | disposition home or self-care (01) ==
LOC: ANHSURGERY 11:28
PROVIDERS: Anesthesiology; PCP Nurse Practitioner Adult Health; Visit Provider Obstetrics & Gynecology Gynecology
DX: E10.22 Type 1 diabetes mellitus with diabetic chronic kidney disease (principal); I10 Essential (primary) hypertension; Z01.818 Encounter for other preprocedural examination
CPT/HCPCS: 36415; 80048; 93005

== ENCOUNTER 2025-02-24 00:35 | Day surgery (SDC) | payer OTHER, SELFPAY ==
--- OUTSIDE RECORDS SUMMARY | 2015-12-24 12:07 | XMS_ITS | Continuity of Care Document ---
Author Organization [facility] Address [address] [facility] [place] [place] [address] Phone Care Team Providers Care Mold Shifter Name Role Phone MD SIFUENTES GILBERT Unavailable Unavailable Advance Directives Directive Yes / No Effective Date File Name No Information Encounters Encounter Description Practice Location Reason(s) For Visit Diagnoses Date Provider Providers Copied on Encounter [facility], [address] [facility], [place], [place], [id number], [place] tel:[phone] [facility] No Information MD DIONISIO SIFUENTES. [address] [place] [address], [id number], [place]. tel:[phone] Family History Family Member Type Diagnosis Age [...]
--- NOTE | 2025-02-14 09:58 | SUR.PREOP ---
[facility] has started construction of its new state of the art ER which will open Spring 2026. With this, we anticipate parking may be a challenge for some our surgical patients and families. Parking spaces are limited but are available for all Surgical, obstetrics, and ER patients sharing this lot. If you arrive and find you are having a hard time finding a parking space, please note that we understand the challenges, please drive around the hospital and park near Hospital Entrance 1. When you enter this entrance, you can ask a volunteer to direct or take you back to the surgical waiting area to check in. We appreciate everyone?s understanding of these expected challenges while we build for your future. Report to the Outpatient Waiting Room, entrance under the green pavilion located off [address], at time 615AM__ on date _02/24/25____. Planned Procedure Time: __815am_.? Time changes happen often and if your time is changed the preop area will call you the afternoon before. - You and your visitor will be asked to self-screen and do not enter if you have any COVID symptoms. Please call surgeon if you need to reschedule. - A mask is optional within the hospital at this time. Patients may have clear liquids (water, carbonated beverages, clear teas, apple juice) until 3 hours prior to surgery with a maximum of 20 ounces. - No food from midnight until time of surgery and no smoking, or chewing tobacco (or any form of nicotine). No chewing gum, candy or mints. Take only the following medications with a SIP of water on the morning of surgery: __atogepant, Continue usual basal rate unless you have a tight control or history of hypoglycemia, then may decrease the basal rate by 0.1-0.2 units/hr. If you become hypoglycemic may call the Pre-Op day of surgery for any further instructions. [phone]. DO NOT STOP ANY OF YOUR OTHER PRESCRIPTION MEDICATIONS PRIOR TO SURGERY EXCEPT THE FOLLOWING Hold all vitamins and supplements for 3 days per anesthesiologist. Medications to discontinue per physician None____ Date to take last dose___N/a Please no make-up, nail greenlandic, hairspray, perfume, deodorant, or body powder the day of surgery.? No jewelry (including any body piercings) or valuables the day of surgery, leave them at home.? Please take a shower or bath the night before, or the morning of, surgery with an antibacterial soap.? Wear comfortable, loose fitting clothing.? - Jewelry must be removed prior to entering the operating room.? Rings and piercings that are not removed may be cut off. - The hospital will not accept responsibility for valuables.? - Please leave all valuables, including medications, at home the day of surgery. If you are going home after surgery, a licensed wrecking car driver must drive you home.? - NO public transportation without another adult if you receive anesthesia. - We recommend that an adult stay with you for 24 hours following discharge. - We also recommend that you do not drive, make important decision, drink alcoholic beverages, or take any drugs that were not prescribed by your health care provider for at least 24 hours after your discharge time. Follow any additional instructions given to you from your surgeon. Telephone instructions given to ___Aure and asked if any additional questions and then verbalized understanding. Patient advised to call surgeon office or pre surgery nurse liaison [phone] if any additional questions.
[2025-02-14 10:05] VITALS: BMI 29.7
--- OUTSIDE RECORDS SUMMARY | 2025-02-24 00:37 | XMS_ITS | Clinical Summary ---
Author Organization [facility] Address [address] [address] Phone Care Team Providers Care Breadman Name Role Phone Savage Didi PHILIPPE Primary Care Provider [phone] Allergies No known active allergies Medications albuterol [...] pen 3 01/06/20 20 Active Dexcom G6 [employer] Delivery Driver miscIndications:Ty pe 1 diabetes mellitus with hyperglycemia [...] above. Assessment & Plan (05/05/2017 8:32 PM FROG OR OYSTER FARMWORKER): As above. 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 MRI 04/18/17 1. 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 2. OTHERWISE NORMAL MRI OF THE LUMBAR SPINE. Assessment & Plan (05/05/2017 8:32 PM FROG OR OYSTER FARMWORKER): Ongoing despite conservative therapy with medication and physical therapy. Will refer to Dr. Garcia for evaluation. Assessment & Plan (04/06/2017 8:42 PM FROG OR OYSTER FARMWORKER): No relief with conservative therapy along with [...] appointment. Assessment & Plan (04/06/2017 8:44 PM FROG OR OYSTER FARMWORKER): Hypertension is uncontrolled. . Dietary sodium restriction. [...] discussed. Assessment & Plan (05/05/2017 8:33 PM FROG OR OYSTER FARMWORKER): Obesity is unchanged. Discussed the patient's BMI. The BMI is above average; BMI management plan is completed. General weight loss/lifestyle modification strategies discussed (elicit support from others; identify saboteurs; non-food rewards, etc). Assessment & Plan (04/06/2017 8:45 PM FROG OR OYSTER FARMWORKER): Obesity is unchanged. Discussed the patient's BMI. The BMI is above average; BMI management plan is completed. General weight loss/lifestyle modification strategies discussed (elicit support from others; identify saboteurs; non-food rewards, etc). Assessment & Plan (03/19/2017 8:32 PM FROG OR OYSTER FARMWORKER): Obesity is essentially stable. . Discussed the [...] affecting 07/28/2017 02/06/2018 Overview (02/06/2018): Overview: Saw [facility] nephrology. 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 Assessment & Plan (04/06/2017 8:43 PM FROG OR OYSTER FARMWORKER): Diabetes is uncontrolled. Hgb A1c . Dietary [...] months. Assessment & Plan (03/19/2017 8:31 PM FROG OR OYSTER FARMWORKER): Diabetes is uncontrolled. Hgb A1c 10.1. 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 on file Not on piter e Obstetrics History Para Term AB IAB SAB Ectopic Multiple Livin g Live Births 2 2 Date Outcome GA Total Labor Labor/2nd/3rd Weight Sex Type Anes PTL Ayanna A1 A5 Name Clin Para Para Last Filed Vital Signs Vital Sign Reading Time Taken Comments Blood Pressure 120/74 04/09/2024 10:54 AM FROG OR OYSTER FARMWORKER Pulse 90 04/09/2024 10:54 AM FROG OR OYSTER FARMWORKER Temperature 36.8 C (98.3 F) 04/09/2024 10:54 AM FROG OR OYSTER FARMWORKER Respiratory Rate 14 04/09/2024 10:54 AM FROG OR OYSTER FARMWORKER Oxygen Saturation 100% 04/09/2024 10:54 AM FROG OR OYSTER FARMWORKER Inhaled Oxygen Concentration - - Weight 88.5 kg (195 lb) 04/09/2024 9:09 AM FROG OR OYSTER FARMWORKER Height 172.7 cm (5' 8) 04/09/2024 9:09 AM FROG OR OYSTER FARMWORKER Body Mass Index 29.65 04/09/2024 9:09 AM FROG OR OYSTER FARMWORKER Plan of Treatment Health Maintenance Due Date [...] Diagnosis Comments EGFR STAT 04/09/2024 9:17 AM FROG OR OYSTER FARMWORKER LIPID PANEL Routine 12/10/2019 9:32 AM CDT [...] Maintenance Results * eGFR (04/09/2024 9:17 AM FROG OR OYSTER FARMWORKER) eGFR 66 >=60 mL/min/1. 73 m2 Comment: [...] last reviewed 2021. Blood 04/09/2024 9:17 AM FROG OR OYSTER FARMWORKER 04/09/2024 9:19 AM FROG OR OYSTER FARMWORKER us Key Villagomez MD LAB BLOOD ORDERABLES Rebecca l Result [facility] Department [place] [address] * TSH reflex to free T4 (12/10/2019 9:32 AM CDT) TSH 1.83 0.30 - 4.20 mcIUnit/mL [facility] Blood specimen (specimen) 12/10/2019 9:32 AM CDT 12/10/2019 1:56 PM CDT Nancy Mcfarland SEARCH MARKETING SPECIALIST LAB BLOOD ORDERABLES Final R esult Performing Organization Address [facility] Co de Phone Number [facility] [address] Department [place] [place], [place] [id number] * (ABNORMAL) Albumin Creatinine Ratio, Urine (12/10/2019 9:32 AM CDT) Albumin Ur 313.1 mg/L [facility] Comment: Interpretive Data No reference range established. Current interpretive data was last revised 2018. Creatinine Ur 29.0 mg/dL [facility] Comment: Interpretive Data No reference range established. Current interpretive data was last revised 2018. Albumin Creatinine Ratio, Ur 1,080(H) 1 - 29 mg/g [facility] Urine 12/10/2019 9:32 AM CDT 12/10/2019 1:56 PM CDT Nancy Mcfarland SEARCH MARKETING SPECIALIST LAB URINE ORDERABLES Final R esult Performing Organization Address City/[facility] Co de Phone Number [facility] [address] [address] [place] [address] * (ABNORMAL) Lipid panel (12/10/2019 9:32 AM [...] LAB BLOOD ORDERABLES Final R esult [facility] [address] [address] Department [place] [address] * (ABNORMAL) POCT hemoglobin A1c (12/10/2019 9:14 [...] Most Recently Relevant to Health Maintenance Insurance [employer] OPEN ACCESS CHOICE PLUS [employer] OPEN ACCESS [facility] CHOICE PLUS Care Teams Breadman Relationship Specialty Start Date End Date Didi Wan NP [address] [place] [address] PCP - General Nurse Practitioner 04/09/24
--- OUTSIDE RECORDS SUMMARY | 2025-02-24 00:37 | XMS_ITS | Encounter Summary ---
Author Organization [facility] Address [address] [facility] [place] [address] Care Team Providers Care Photographer Aerial Name Role Phone Danyell Adam PERSONAL COMPUTER NETWORK ANALYST-PRODUCT ANALYST Primary Care Provide r Reason for Visit * Reason Onset Date Comments MEDICATION REFILL 12/28/2017 Encounter Details Date Type Department Care Team (Late st Contact Info) Description 12/28/2017 Refill [facility] [address] [place] [address] [place] [address] [address] MEDICATION REFILL Social History Tobacco [...] Industry 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
--- OUTSIDE RECORDS SUMMARY | 2025-02-24 00:37 | XMS_ITS | Clinical Summary ---
Author Organization [facility] Address [address] [place] [address] Phone Care Team Providers Care Shank Burnisher Name Role Phone Isidoro Kenney MD Primary Care Provider [phone] Allergies No known active allergies Medications Insulin [...] Comments Blood Pressure 126/80 03/29/2022 10:25 AM PATTERNMAKER HELPER Pulse 91 03/29/2022 10:25 AM PATTERNMAKER HELPER Temperature 36.6 C (97.9 F) 03/29/2022 10:25 AM PATTERNMAKER HELPER Respiratory Rate 20 03/29/2022 10:25 AM PATTERNMAKER HELPER Oxygen Saturation 99% 03/29/2022 10:25 AM PATTERNMAKER HELPER Inhaled Oxygen Concentration - - Weight - [...] patient's age to complete this topic Insurance [facility] ALL SAVERS Care Teams Shank Burnisher Relationship Specialty Start Date End Date Isidoro Kenney MD PCP - General Family Medicine 03/29/22
--- OUTSIDE RECORDS SUMMARY | 2025-02-24 00:37 | XMS_ITS | Clinical Summary ---
Author Organization [facility] Address [address] [place] [address] Care Team Providers Care Bath House Attendant Name Role Phone Danyell Adam STONE FABRICATOR-BARTENDER HELPER Primary Care Provide r Source Comments [facility],non-owned Affiliates and Associated Physician Practices is amultiple site organization consisting of ambulatory clinics and hospital sitesin [place], [place], [place] and [place]. This disclosure is being madepursuant to the Care Everywhere program and may not contain all information available regarding this patient. Last updated 18.[facility] Allergies No known active allergies Medications * [...] different from the original. 11/22/17 Request to [facility] Ethics re: Tubal ligation Approved Problem Noted [...] counting Proteinuria affecting 07/28/2017 Overview (09/18/2017): Saw [facility] nephrology. 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 Blood specimen (specimen) BLOOD SPECIMEN / Unknown 07/28/2017 9:45 AM CDT 07/28/2017 10:13 AM CDT us Rahul Acosta MD LAB - HEMATOLOGY ORDERABLES Fi nal Result [address] [phone] * HEPATITIS C AB SCREEN RFLX PCR QUANT (07/28/2017 9:45 AM CDT) Hepatitis C Antibody Non-react sharron Non-reac tive [facility] Comment: Hepatitis C Antibody screen indicates [...] LAB - CHEMISTRY ORDERABLES Fin al Result [address] [phone] from Last 3 Months or Most Recently Relevant to Health Maintenance Insurance [facility] Advance Directives * Full Code (Latest Code Status on File) Date Activated Date Inactivated Comments 01/03/2018 2:55 PM 01/09/2018 9:27 PM * Full Code Date Activated Date Inactivated Comments 11/14/2017 3:32 PM 11/14/2017 8:37 PM * Full Code Date Activated Date Inactivated Comments 10/26/2017 5:38 PM 10/26/2017 9:42 PM Care Teams Bath House Attendant Relationship Specialty Start Date End Date Danyell Adam, STONE FABRICATOR-BARTENDER HELPER PCP - General 08/18/17
--- OUTSIDE RECORDS SUMMARY | 2025-02-24 00:37 | XMS_ITS | Clinical Summary ---
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 EST. AVG GLUCOSE, A1C 134 mg/dL 09/29/2015 5:06 PM CDT [facility] Blood Venipuncture - L ab Collect / Unknown 09/29/2015 2:22 PM CDT 09/29/2015 2:39 PM CDT us Elan Barnes MD CHEMISTRY ORDERABLES Final Res ult [facility] [employer] [facility] CLIA# [id number] [address] [place] [address] from Last 3 Months or Most Recently Relevant to Health Maintenance Insurance [facility] PREFERRED Care Teams Background Check Coordinator Relationship Specialty [place] [address] [address] PCP - General NURSE PRACTITIONER 06/17/15
--- OUTSIDE RECORDS SUMMARY | 2025-02-24 00:37 | XMS_ITS | Clinical Summary ---
Author Organization [facility] Address [address] [place] [address] Phone Care Team Providers Care Concrete Engineering Technician Name Role Phone Ivan Blunt DO Primary Care Provider [phone] Allergies No known active allergies Medications albuterol HFA (PROVENTIL HFA) 108 (90 Base) MCG/ACT inhaler Inhale 2 puffs 8 Active atorvastatin (LIPITOR) 20 MG tablet Take 20 mg by mouth 1 (one) time each day 1 Active amLODIPine (NORVASC) 10 MG tablet Take 10 mg by mouth daily 0 Active cholecalcifero l (VITAMIN D-3) 50 MCG (1999) capsule 1 Active Continuous Blood Gluc Trimmer Meat (Dexcom G6 Trimmer Meat) device USE TO CHECK BLOOD SUGAR [...] a prior Proteinuria 07/28/2017 Overview (12/29/2020): Saw [facility] nephrology. 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
[2025-02-24 06:30] VITALS: BP 128/89; PULSE 87; RESP 14; TEMP 36.6; O2SAT 100
[2025-02-24] MEDS: ACETAMINOPHEN 500 MG TABLET 1000 MG PO (06:55)
[2025-02-24] MEDS: LACTATED RINGERS 1,000 ML 30 ML IV CONT (07:00)
--- NOTE | 2025-02-24 07:22 | WPDHPUPDATE1 ---
History and Physical Update Update Date/Time: 02/24/25 07:22 History and Physical has been reviewed, including an updated exam of the patient. There are NO changes in the patient's condition. Risks, benefits, and alternatives have been discussed and questions answered. Patient agrees to proceed with procedure.
--- NOTE | 2025-02-24 07:23 | PM.HPGS ---
History of Present Illness History of Present Illness Consent: Risks, benefits, and alternatives have been discussed and questions answered. Patient agrees to proceed with procedure. Chief complaint: Menorrhagia Narrative: Aure Maldonado is a 34 year old female with irregular, frequent, and heavy bleeding that began 3 months ago. Pelvic ultrasound is normal. It was recommended to undergo D&C hysteroscopy for further evaluation. Risks of infection, bleeding, perforation and possible pathology are reviewed. Patient voices understanding and agrees to proceed. Review of Systems Review of Systems: not repeated day of surgery; patient states no changes in [facility] Past Medical History Medical History Vitamin D deficiency Secondary renal hyperparathyroidism Stage 3b chronic kidney disease Type 1 diabetes mellitus Anemia Hyperlipidemia Hypertension Asthma Allergies Surgical History Surgical History (Updated 02/24/25 @ 07:25 by Divya Fernandes MD) History of bilateral tubal ligation History of hysteroscopy November 21, 2022 History of cholecystectomy Previous section x2 Family History Family History Father Diabetes mellitus Cerebrovascular accident Mother Multiple sclerosis Grandparent Hypertension Heart problem Ovarian cancer Grandparent Hypertension Depression with anxiety Social History Social History Years smoked: 1 Smoking status: Former smoker Tobacco type: cigarettes Alcohol intake: never Substance use: never Substance use type: does not use Do You Feel Safe in your Home?: Yes Lack of Transportation: No Lack of Food: Never True Concerned About Future Housing: No Difficulty Paying Gas/Electric Bills: No Difficulty Paying for Meds: No Currently Unemployed: No Education: High School Diploma/GED Living arrangements: with family Gender identity (if verbalized by the patient): Female Spiritual care concerns: No Meds Home Medications and Allergies Home Medications ?Medication ?Instructions ?Recorded ?Confirmed ?Type pen needle, diabetic 32 gauge x #100 ea 12/13/22 02/14/25 Rx (BD Ultra-Fine Cornelia Pen Needle) losartan 25 mg tablet 12.5 mg (1/2 x 25 mg) PO DAILY #45 09/05/23 02/14/25 Rx tabs glucagon 1 mg/0.2 mL subcutaneous 1 mg (0.2 mL) subcut ONCE #0.4 mL 03/27/24 02/14/25 Rx auto-injector (Gvoke HypoPen 2-Pack) insulin pump cart,auto,BT,G6/7 #30 ea 06/04/24 02/14/25 Rx (Omnipod 5 G6-G7 Pods (Gen 5) subcutaneous cartridge) atogepant 30 mg tablet (Qulipta) 30 mg PO DAILY 06/11/24 02/14/25 History tirzepatide 15 mg/0.5 mL 15 mg (0.5 mL) subcut WEEKLY #6 mL 06/11/24 02/14/25 Rx subcutaneous pen injector (Mounjaro) blood sugar diagnostic (Contour #300 ea 08/05/24 01/22/25 Rx Next Test Strips) blood-glucose sensor (Dexcom G7 #9 ea 10/07/24 02/14/25 Rx Sensor device) atorvastatin 40 mg tablet 40 mg PO DAILY #90 tabs 10/21/24 02/14/25 Rx insulin lispro 100 unit/mL 160 unit (1.6 mL) continuous 01/22/25 02/14/25 Rx subcutaneous solution subcutaneous infusion DAILY #150 mL Allergies Allergy/AdvReac Type Severity Reaction Status Date / Time No Known Allergies Allergy Verified 02/14/25 10:01 Exam Const: General: healthy appearing and alert Orientation/consciousness: patient oriented x3 Resp: Effort & Inspection: normal respiratory effort Auscultation: clear to auscultation bilaterally : External Female Exam: normal external appearance Speculum Exam - Vagina: normal appearance of the vagina and normal vaginal discharge Speculum Exam - Cervix: normal appearance of the cervix Bimanual exam- vagina & uterus: uterine size normal and consistency normal Bimanual Exam- Adnexa, other: normal adnexae and No adnexal tenderness Neuro: General: patient oriented x3 Assessment and Plan Assessment and plan (1) Menorrhagia: Code(s): N92.0 - Excessive and frequent menstruation with regular cycle Status: Acute Assessment and Plan: Plan to proceed with D&C hysteroscopy
[2025-02-24 07:31] LABS: BEDSIDEPREGUCG Negative (Negative)
[2025-02-24 07:32] VITALS: BMI 29.3
--- NOTE | 2025-02-24 07:56 | WPDANESEPPF ---
Anes - Initial Pre Proc Eval Procedure: Operation Date: 02/24/25 08:15 Proposed Procedures p Hysteroscopy Dilation and Curettage - Divya Fernandes MD Date/Time: 02/24/25 07:56 Surgeon: Divya Fernandes MD Pre Op Diagnosis: Menorrhagia Patient Data Age: 34 Gender: F Height: 1.73 m Weight: 87.6 kg Last Vital Signs Temp 97.9 F 02/24/25 06:30 Pulse 87 02/24/25 06:30 Resp 14 02/24/25 06:30 BP 128/89 02/24/25 06:30 Pulse Ox 100 02/24/25 06:30 O2 Del Method Room Air 02/24/25 06:30 Allergies Allergy/AdvReac Type Severity Reaction Status Date / Time No Known Allergies Allergy Verified 02/24/25 07:27 Home Medications ?Medication ?Instructions ?Recorded ?Confirmed ?Type pen needle, diabetic 32 gauge x #100 ea 12/13/22 02/14/25 Rx 5/32 (BD Ultra-Fine Cornelia Pen Needle) losartan 25 mg tablet 12.5 mg (1/2 x 25 mg) PO DAILY #45 09/05/23 02/14/25 Rx tabs glucagon 1 mg/0.2 mL subcutaneous 1 mg (0.2 mL) subcut ONCE #0.4 mL 03/27/24 02/14/25 Rx auto-injector (Gvoke HypoPen 2-Pack) insulin pump cart,auto,BT,G6/7 #30 ea 06/04/24 02/14/25 Rx (Omnipod 5 G6-G7 Pods (Gen 5) subcutaneous cartridge) atogepant 30 mg tablet (Qulipta) 30 mg PO DAILY 06/11/24 02/14/25 History tirzepatide 15 mg/0.5 mL 15 mg (0.5 mL) subcut WEEKLY #6 mL 06/11/24 02/14/25 Rx subcutaneous pen injector (Christina) blood sugar diagnostic (Contour #300 ea 08/05/24 01/22/25 Rx Next Test Strips) blood-glucose sensor (Dexcom G7 #9 ea 10/07/24 02/14/25 Rx Sensor device) atorvastatin 40 mg tablet 40 mg PO DAILY #90 tabs 10/21/24 02/14/25 Rx insulin lispro 100 unit/mL 160 unit (1.6 mL) continuous 01/22/25 02/14/25 Rx subcutaneous solution subcutaneous infusion DAILY #150 mL Laboratory Tests 02/24/25 02/24/25 06:30 07:06 POC Capillary Glucose 129 H mg/dl (65-105) POC Urine HCG, Qual Negative (Negative) Patient hx anesthesia problems: none Family hx anesthesia problems: none Results Review: All pre-operative results and documents have been reviewed as part of the pre-operative evaluation. [facility] Past Medical History Medical History Vitamin D deficiency Secondary renal hyperparathyroidism Stage 3b chronic kidney disease Type 1 diabetes mellitus Anemia Hyperlipidemia Hypertension Asthma Allergies Surgical History Surgical History History of bilateral tubal ligation History of hysteroscopy November 21, 2022 History of cholecystectomy Previous section x2 Family History Family History Father Diabetes mellitus Cerebrovascular accident Mother Multiple sclerosis Grandparent Hypertension Heart problem Ovarian cancer Grandparent Hypertension Depression with anxiety Social History Social History Years smoked: 1 Smoking status: Former smoker Tobacco type: cigarettes Alcohol intake: never Substance use: never Substance use type: does not use Do You Feel Safe in your Home?: Yes Lack of Transportation: No Lack of Food: Never True Concerned About Future Housing: No Difficulty Paying Gas/Electric Bills: No Difficulty Paying for Meds: No Currently Unemployed: No Education: High School Diploma/GED Living arrangements: with family Gender identity (if verbalized by the patient): Female Spiritual care concerns: No Anes - Eval Final PreProcedure Day of Procedure 02/24/25 07:56 Patient weight: overweight Lungs: normal air movement Airway: Mallampati scale class II Neurological: alert and oriented Last oral intake: >/= 8 hours ASA classification: III Emergent: no Anesthetic plan: proceed Anesthesia type and monitoring: general GIVS and standard monitoring Results Review: All pre-operative results and documents have been reviewed as part of the pre-operative evaluation. Hyperlipidemia, HTN, CKD stage 3, DM on insulin fsbs 129. Informed Consent: The patient's anesthetic plan and its attendant risks and benefits were discussed with the patient/family/POA. Questions were solicited and answers provided to the satisfaction of the patient/family/POA.
--- NOTE | 2025-02-24 08:18 | SUR.OPER ---
Fluid Deficit 30
--- NOTE | 2025-02-24 08:19 | S_PTH ---
PATIENT: Aure Maldonado LOC: [facility] U#:[id number] AGE/SX: 34/F ROOM: RE02/24/[address]: Divya Fernandes MD : 1990 BED: DIS: 02/24/2025 SPEC #: [id number] RECD: 02/24/25 10:14 STATUS: FELICITAS REQ #: [id number] MARIS: 02/24/25 08:[address]: Divya Fernandes DEPT: [facility] Surgical RECD BY: Glendy Fairbanks ENTERED: 02/24/25 10:14 SP TYPE: Surgical OTHR DR: Didi Wan APRN Tissues: A - Endometrial Curettings Procedures: Hematoxylin and Eosin Stain Gross and Microscopic Level 4
--- NOTE | 2025-02-24 08:22 | W.PM.PROC2 ---
Procedure Note - Detailed Date of Procedure 02/24/25 Pre-op Diagnosis Menorrhagia Post-op Diagnosis Same Procedure Performed D&C hysteroscopy Surgeon Divya Fernandes MD Anesthesia MAC Findings Uterus sounds to 10cm and appears grossly normal Description of Procedure The patient was taken to the operating room and placed under anesthesia in the dorsal lithotomy position. She was prepped and draped in the usual sterile fashion. [place] speculum was placed in the vagina and the cervix grasped on the anterior lip with the tenaculum. The uterus is sounded to 10cm. The diagnostic hysteroscope was placed and no abnormalities were noted. The hysteroscope was removed. The sharp curette was used to curette the endometrium until a good uterine cry was noted in all areas. All instruments were removed. Sponge, needle, and instrument counts are correct per the OR staff. The patient was taken to recovery in stable condition. Estimated Blood Loss 5 Drains No Packing No Pathology Yes (Endometrial curettings) Complications No immediate complications Condition Stable Disposition PACU
[2025-02-24 08:26] VITALS: BP 114/74; PULSE 80; RESP 16; O2SAT 100
[2025-02-24 08:45] VITALS: BP 105/69; PULSE 71; RESP 14; O2SAT 100
[2025-02-24 09:15] VITALS: BP 125/81; PULSE 73; RESP 14
== END 2025-02-24 09:32 | disposition home or self-care (01) ==
PROVIDERS: PCP Nurse Practitioner Adult Health; Visit Provider Obstetrics & Gynecology Gynecology
PROC: 0U5B8ZZ Destruction of Endometrium, Via Natural or Artificial Opening Endoscopic (ICD-10-PCS; CPT 58563; principal; 2025-02-24 08:15)
DX: N92.0 Excessive and frequent menstruation with regular cycle (principal); I12.9 Hypertensive chronic kidney disease with stage 1 through stage 4 chronic kidney disease, or unspecified chronic kidney disease; E10.22 Type 1 diabetes mellitus with diabetic chronic kidney disease; N18.32 Chronic kidney disease, stage 3b
CPT/HCPCS: 58558; 82948; 88305; A9270; J2003; J2250; J2405; J2704; J3010; J7120

== ENCOUNTER 2025-03-17 00:20 | Day surgery (SDC) | payer OTHER, SELFPAY ==
--- OUTSIDE RECORDS SUMMARY | 2015-12-24 11:07 | XMS_ITS | Continuity of Care Document ---
Author Organization [facility] Address [address] [facility] [place] [address] Phone Care Team Providers Care Finisher Map And Chart Name Role Phone MD SIFUENTES GILBERT Unavailable Unavailable Advance Directives Directive Yes / No Effective Date File Name No Information Encounters Encounter Description Practice Location Reason(s) For Visit Diagnoses Date Provider Providers Copied on Encounter [facility], [address] [facility], [place], [place], [id number], [place] tel:[phone] [facility] No Information MD DIONISIO SIFUENTES. [address] [place] [address], [id number], [place]. tel:[phone] Family History Family Member Type Diagnosis Age At Onset No Information Payers Payer name Insurance type Covered democrat ID Authoriza tion(s) No Information Social History Type Description Quantity Date Captured Comments Sex Female Smoking Status No Information Chief Complaint And Reason For Visit No Information History Of Present Illness Encounter Date Complaint History Of Prese nt Illness No Information Instructions Date Instruction Additional Infor mation No Information Assessments Type Assessment Date No Information
--- NOTE | 2025-03-12 08:45 | PC.NURSE ---
[facility] has started construction of its new state of the art ER which will open Spring 2026. With this, we anticipate parking may be a challenge for some our surgical patients and families. Parking spaces are limited but are available for all Surgical, obstetrics, and ER patients sharing this lot. If you arrive and find you are having a hard time finding a parking space, please note that we understand the challenges, please drive around the hospital and park near Hospital Entrance 1. When you enter this entrance, you can ask a volunteer to direct or take you back to the surgical waiting area to check in. We appreciate everyone?s understanding of these expected challenges while we build for your future. Report to the Outpatient Waiting Room, entrance under the green pavilion located off [address], at time _1000_ on date _[phone]_. Planned Procedure Time: _1200_.? Time changes happen often and if your time is changed the preop area will call you the afternoon before. - You and your visitor will be asked to self-screen and do not enter if you have any COVID symptoms. Please call surgeon if you need to reschedule. - A mask is optional within the hospital at this time. Patients may have clear liquids (water, carbonated beverages, clear teas, apple juice) until 3 hours prior to surgery with a maximum of 20 ounces. - No food from midnight until time of surgery and no smoking, or chewing tobacco (or any form of nicotine). No chewing gum, candy or mints. Take only the following medications with a SIP of water on the morning of surgery: __Atogepant and continue insulin pump. If tight control and history of hypoglycemia then may decrease the basal rate by 0.1-0.2 units per hour. If have problems may call [phone] DO NOT STOP ANY OF YOUR OTHER PRESCRIPTION MEDICATIONS PRIOR TO SURGERY EXCEPT THE FOLLOWING Hold all vitamins and supplements for 3 days per anesthesiologist. Medications to discontinue per physician Date to take last dose Please no make-up, nail khmer, hairspray, perfume, deodorant, or body powder the day of surgery.? No jewelry (including any body piercings) or valuables the day of surgery, leave them at home.? Please take a shower or bath the night before, or the morning of, surgery with an antibacterial soap.? Wear comfortable, loose fitting clothing.? - Jewelry must be removed prior to entering the operating room.? Rings and piercings that are not removed may be cut off. - The hospital will not accept responsibility for valuables.? - Please leave all valuables, including medications, at home the day of surgery. If you are going home after surgery, a licensed sales warehouse driver must drive you home.? - NO public transportation without another adult if you receive anesthesia. - We recommend that an adult stay with you for 24 hours following discharge. - We also recommend that you do not drive, make important decision, drink alcoholic beverages, or take any drugs that were not prescribed by your health care provider for at least 24 hours after your discharge time. Follow any additional instructions given to you from your surgeon. Telephone instructions given to __Aure___and asked if any additional questions and then verbalized understanding. Patient advised to call surgeon office or pre surgery nurse liaison [phone] if any additional questions.
[2025-03-12 09:05] VITALS: BMI 29.3
--- OUTSIDE RECORDS SUMMARY | 2025-03-17 00:23 | XMS_ITS | Clinical Summary ---
Author Organization [facility] Address [address] [address] Phone Care Team Providers Care Regulatory Compliance Manager Name Role Phone Savage Didi PHILIPPE Primary Care Provider [phone] Allergies No known active allergies Medications albuterol [...] pen 3 01/06/20 20 Active Dexcom G6 Director Of Undergraduate Admissions miscIndications:Ty pe 1 diabetes mellitus with hyperglycemia [...] above. 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 MRI 04/18/17 1. 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 2. OTHERWISE NORMAL MRI OF THE LUMBAR SPINE. Assessment & Plan (05/05/2017 8:32 PM HIGH SCHOOL AUTO REPAIR TEACHER): Ongoing despite conservative therapy with medication and physical therapy. Will refer to Dr. Garcia for evaluation. Assessment & Plan (04/06/2017 8:42 PM HIGH SCHOOL AUTO REPAIR TEACHER): No relief with conservative therapy along with [...] appointment. Assessment & Plan (04/06/2017 8:44 PM HIGH SCHOOL AUTO REPAIR TEACHER): Hypertension is uncontrolled. . Dietary sodium restriction. [...] discussed. Assessment & Plan (05/05/2017 8:33 PM HIGH SCHOOL AUTO REPAIR TEACHER): Obesity is unchanged. Discussed the patient's BMI. The BMI is above average; BMI management plan is completed. General weight loss/lifestyle modification strategies discussed (elicit support from others; identify saboteurs; non-food rewards, etc). Assessment & Plan (04/06/2017 8:45 PM HIGH SCHOOL AUTO REPAIR TEACHER): Obesity is unchanged. Discussed the patient's BMI. The BMI is above average; BMI management plan is completed. General weight loss/lifestyle modification strategies discussed (elicit support from others; identify saboteurs; non-food rewards, etc). Assessment & Plan (03/19/2017 8:32 PM HIGH SCHOOL AUTO REPAIR TEACHER): Obesity is essentially stable. . Discussed the [...] affecting 07/28/2017 02/06/2018 Overview (02/06/2018): Overview: Saw [facility] nephrology. 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 Assessment & Plan (04/06/2017 8:43 PM HIGH SCHOOL AUTO REPAIR TEACHER): Diabetes is uncontrolled. Hgb A1c . Dietary [...] months. Assessment & Plan (03/19/2017 8:31 PM HIGH SCHOOL AUTO REPAIR TEACHER): Diabetes is uncontrolled. Hgb A1c 10.1. 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 Not on file Not on piter e Obstetrics History Para Term AB IAB SAB Ectopic Multiple Livin g Live Births 2 2 Date Outcome GA Total Labor Labor/2nd/3rd Weight Sex Type Anes PTL Ayanna A1 A5 Name Clin Para Para Last Filed Vital Signs Vital Sign Reading Time Taken Comments Blood Pressure 120/74 04/09/2024 10:54 AM HIGH SCHOOL AUTO REPAIR TEACHER Pulse 90 04/09/2024 10:54 AM HIGH SCHOOL AUTO REPAIR TEACHER Temperature 36.8 C (98.3 F) 04/09/2024 10:54 AM HIGH SCHOOL AUTO REPAIR TEACHER Respiratory Rate 14 04/09/2024 10:54 AM HIGH SCHOOL AUTO REPAIR TEACHER Oxygen Saturation 100% 04/09/2024 10:54 AM HIGH SCHOOL AUTO REPAIR TEACHER Inhaled Oxygen Concentration - - Weight 88.5 kg (195 lb) 04/09/2024 9:09 AM HIGH SCHOOL AUTO REPAIR TEACHER Height 172.7 cm (5' 8) 04/09/2024 9:09 AM HIGH SCHOOL AUTO REPAIR TEACHER Body Mass Index 29.65 04/09/2024 9:09 AM HIGH SCHOOL AUTO REPAIR TEACHER Plan of Treatment Health Maintenance Due Date [...] Diagnosis Comments EGFR STAT 04/09/2024 9:17 AM HIGH SCHOOL AUTO REPAIR TEACHER LIPID PANEL Routine 12/10/2019 9:32 AM CDT [...] Maintenance Results * eGFR (04/09/2024 9:17 AM HIGH SCHOOL AUTO REPAIR TEACHER) eGFR 66 >=60 mL/min/1. 73 m2 Comment: [...] last reviewed 2021. Blood 04/09/2024 9:17 AM HIGH SCHOOL AUTO REPAIR TEACHER 04/09/2024 9:19 AM HIGH SCHOOL AUTO REPAIR TEACHER us Key Villagomez MD LAB BLOOD ORDERABLES Rebecca l Result [facility] [address] [facility] Department [place] [address] * TSH reflex to free T4 (12/10/2019 9:32 AM CDT) TSH 1.83 0.30 - 4.20 mcIUnit/mL [facility] Blood specimen (specimen) 12/10/2019 9:32 AM CDT 12/10/2019 1:56 PM CDT Nancy Mcfarland CHIEF SALES OFFICER LAB BLOOD ORDERABLES Final R esult Performing Organization Address [facility] Co de Phone Number [facility] [address] [address] Department cocone [place], [place] [id number] * (ABNORMAL) Albumin Creatinine Ratio, Urine (12/10/2019 9:32 AM CDT) Albumin Ur 313.1 mg/L [facility] Comment: Interpretive Data No reference range established. Current interpretive data was last revised 2018. Creatinine Ur 29.0 mg/dL [facility] Comment: Interpretive Data No reference range established. Current interpretive data was last revised 2018. Albumin Creatinine Ratio, Ur 1,080(H) 1 - 29 mg/g [facility] Urine 12/10/2019 9:32 AM CDT 12/10/2019 1:56 PM CDT Nancy Mcfarland CHIEF SALES OFFICER LAB URINE ORDERABLES Final R esult Performing Organization Address City/[facility] Co de Phone Number [facility] [place] [address] [place] [address] * (ABNORMAL) Lipid panel (12/10/2019 9:32 AM [...] LAB BLOOD ORDERABLES Final R esult [facility] [address] [address] [place] [address] * (ABNORMAL) POCT hemoglobin A1c (12/10/2019 9:14 [...] Most Recently Relevant to Health Maintenance Insurance [facility] Address: [place] [address] [employer] OPEN ACCESS CHOICE PLUS [facility]/PP[place] [address] [employer] OPEN ACCESS [facility] CHOICE PLUS [facility] H[facility]/PPO Address: [address] [address] [place] [address] Care Teams Regulatory Compliance Manager Relationship Specialty Start Date End Date Didi Wan NP [address] [place] [phone] PCP - General Nurse Practitioner 04/09/24
--- OUTSIDE RECORDS SUMMARY | 2025-03-17 00:23 | XMS_ITS | Clinical Summary ---
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 EST. AVG GLUCOSE, A1C 134 mg/dL 09/29/2015 5:06 PM CDT [facility] Blood Venipuncture - L ab Collect / Unknown 09/29/2015 2:22 PM CDT 09/29/2015 2:39 PM CDT us Elan Banres MD CHEMISTRY ORDERABLES Final Res ult [facility] [employer]x [facility] CLIA# [id number] [address] [place] [address] from Last 3 Months or Most Recently Relevant to Health Maintenance Insurance [facility] Care Teams Chef French Relationship Specialty [place] [address] [address] PCP - General NURSE PRACTITIONER 06/17/15
--- OUTSIDE RECORDS SUMMARY | 2025-03-17 00:23 | XMS_ITS | Clinical Summary ---
Author Organization [facility] Address [address] [place] [address] Phone Care Team Providers Care Diamond Merchant Name Role Phone Isidoro Kenney MD Primary Care Provider [phone] Allergies No known active allergies Medications Insulin [...] Comments Blood Pressure 126/80 03/29/2022 10:25 AM COMPENSATION/BENEFITS SPECIALIST Pulse 91 03/29/2022 10:25 AM COMPENSATION/BENEFITS SPECIALIST Temperature 36.6 C (97.9 F) 03/29/2022 10:25 AM COMPENSATION/BENEFITS SPECIALIST Respiratory Rate 20 03/29/2022 10:25 AM COMPENSATION/BENEFITS SPECIALIST Oxygen Saturation 99% 03/29/2022 10:25 AM COMPENSATION/BENEFITS SPECIALIST Inhaled Oxygen Concentration - - Weight - [...] patient's age to complete this topic Insurance [facility] Care Teams Diamond Merchant Relationship Specialty Start Date End Date Isidoro Kenney MD PCP - General Family Medicine 03/29/22
--- OUTSIDE RECORDS SUMMARY | 2025-03-17 00:23 | XMS_ITS | Clinical Summary ---
Author Organization [facility] Address [address] [place] [address] Care Team Providers Care Roll Panner Name Role Phone Danyell Adam CHURNER-E COMMERCE MANAGER Primary Care Provide r Source Comments [facility],non-owned Affiliates and Associated Physician Practices is amultiple site organization consisting of ambulatory clinics and hospital sitesin [place], [place], [place] and [place]. This disclosure is being madepursuant to the Care Everywhere program and may not contain all information available regarding this patient. Last updated 18.[facility] Allergies No known active allergies Medications * [...] different from the original. 11/22/17 Request to [facility] Ethics re: Tubal ligation Approved Problem [...] counting Proteinuria affecting 07/28/2017 Overview (09/18/2017): Saw [facility] nephrology. 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 Blood specimen (specimen) BLOOD SPECIMEN / Unknown 07/28/2017 9:45 AM CDT 07/28/2017 10:13 AM CDT us Rahul Acosta MD LAB - HEMATOLOGY ORDERABLES Fi nal Result [address] [phone] * HEPATITIS C AB SCREEN RFLX PCR QUANT (07/28/2017 9:45 AM CDT) Hepatitis C Antibody Non-react sharron Non-reac tive [facility] Comment: Hepatitis C Antibody screen indicates [...] LAB - CHEMISTRY ORDERABLES Fin al Result Performing Organization Address City/State/[facility] Co de Phone Number [facility] [address] [phone] from Last 3 Months or Most Recently Relevant to Health Maintenance Insurance [employer] NO INSURANCE Member Subscriber Plan / Payer (Ef fective for All Dates) Name:Starla Maldonadovicenta Garcia Member ID:Not on file Relation to Subscriber:Not on file Name:TIKAYARELIS A Subscriber ID:Not on file (Home) Address: [address] [place] [address] Payer ID:Not on file Group ID:Not on file Type:Self Pay Address: [facility] Advance Directives * Full Code (Latest Code Status on File) Date Activated Date Inactivated Comments 01/03/2018 2:55 PM 01/09/2018 9:27 PM * Full Code Date Activated Date Inactivated Comments 11/14/2017 3:32 PM 11/14/2017 8:37 PM * Full Code Date Activated Date Inactivated Comments 10/26/2017 5:38 PM 10/26/2017 9:42 PM Care Teams Roll Panner Relationship Specialty Start Date End Date Danyell Adam APRN-SHANDA PCP - General 08/18/17
--- OUTSIDE RECORDS SUMMARY | 2025-03-17 00:23 | XMS_ITS | Clinical Summary ---
Author Organization [facility] Address [address] [place] [address] Phone Care Team Providers Care Lead Athlete Name Role Phone Ivan Blunt DO Primary Care Provider [phone] Allergies No known active allergies Medications albuterol HFA (PROVENTIL HFA) 108 (90 Base) MCG/ACT inhaler Inhale 2 puffs 8 Active atorvastatin (LIPITOR) 20 MG tablet Take 20 mg by mouth 1 (one) time each day 1 Active amLODIPine (NORVASC) 10 MG tablet Take 10 mg by mouth daily 0 Active cholecalcifero l (VITAMIN D-3) 50 MCG (1999) capsule 1 Active Continuous Blood Gluc Credit Portfolio Advisor (Dexcom G6 Credit Portfolio Advisor) device USE TO CHECK BLOOD SUGAR 1 [...] prior Proteinuria 07/28/2017 Overview (12/29/2020): Saw [facility] nephrology. 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 diabetes [...] Immunizations Immunization Administration Dates Next Due Influenza Split 03/02/2010 Influenza Split Preservative Free ID 03/02/2010 Influenza TIV (IM) 04/07/2014 Influenza Trivalent Adjuvanted 05/08/2011 Influenza, Injectable, Quadrivalent 05/08/2011,0 05/08/2008 Influenza, Injectable, Quadr ivalent, Preservative Free 01/15/2020,02/06/2018,04/06/2017 Influenza, Unspecified 02/13/2017,03/02/2010 Influenza, split virus, trivalent, PF 02/12/2015 ,04/20/2014 MMR 11/14/2015 Sars-cov-2, Unspecified 08/26/2020 TD Preservative [...] , 02/06/2018, 04/06/2017, Additional history exists Insurance [facility] Care Teams Lead Athlete Relationship Specialty Start Date End Date Ivan Blunt [address] [place] [address] PCP - General Family Medicine 10/26/20
--- OUTSIDE RECORDS SUMMARY | 2025-03-17 00:23 | XMS_ITS | Encounter Summary ---
Author Organization [facility] Address [address] [place] [address] Care Team Providers Care Electrical Prospecting Engineer Name Role Phone Danyell Adam PARIMUTUEL TICKET CASHIER-REGISTERED SALES ASSISTANT Primary Care Provide r Reason for Visit * Reason Onset Date Comments MEDICATION REFILL 12/28/2017 Encounter Details Date Type Department Care Team (Late st Contact Info) Description 12/28/2017 Refill [facility] [address] [place] [address] WestonEmely hartley MD [address] [address] MEDICATION REFILL Social History Tobacco [...] Industry 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
--- NOTE | 2025-03-17 07:51 | WPDHPUPDATE1 ---
History and Physical Update Update Date/Time: 03/17/25 07:51 History and Physical has been reviewed, including an updated exam of the patient. There are NO changes in the patient's condition. Risks, benefits, and alternatives have been discussed and questions answered. Patient agrees to proceed with procedure.
--- NOTE | 2025-03-17 07:51 | PM.HPGS ---
History of Present Illness History of Present Illness Consent: Risks, benefits, and alternatives have been discussed and questions answered. Patient agrees to proceed with procedure. Chief complaint: Menorrhagia Narrative: Aure Maldonado is a 34 year old female with menorrhagia. D&C hysteroscopy was normal in February of 2025. Patient has elected to proceed with Tri endometrial ablation for treatment. Risks of infection, bleeding, perforation, and failure are reviewed. Patient voices understanding and agrees to proceed. Review of Systems Review of Systems: not repeated day of surgery; patient states no changes in status PMFSH Past Medical History Medical History Vitamin D deficiency Secondary renal hyperparathyroidism Stage 3b chronic kidney disease Type 1 diabetes mellitus Anemia Hyperlipidemia Hypertension Asthma Allergies Surgical History Surgical History (Updated 03/17/25 @ 07:52 by Divya Fernandes MD) History of bilateral tubal ligation History of hysteroscopy November 21, 2022 February 24, 2025 History of cholecystectomy Previous section x2 Family History Family History Father Diabetes mellitus Cerebrovascular accident Mother Multiple sclerosis Grandparent Hypertension Heart problem Ovarian cancer Grandparent Hypertension Depression with anxiety Social History Social History Years smoked: 1 Smoking status: Former smoker Tobacco type: cigarettes Alcohol intake: current Substance use: never Substance use type: does not use Do You Feel Safe in your Home?: Yes Lack of Transportation: No Lack of Food: Never True Concerned About Future Housing: No Difficulty Paying Gas/Electric Bills: No Difficulty Paying for Meds: No Currently Unemployed: No Education: High School Diploma/GED Living arrangements: with family Gender identity (if verbalized by the patient): Female Spiritual care concerns: No Meds Home Medications and Allergies Home Medications ?Medication ?Instructions ?Recorded ?Confirmed ?Type pen needle, diabetic 32 gauge x #100 ea 12/13/22 03/12/25 Rx 5/32 (BD Ultra-Fine Cornelia Pen Needle) losartan 25 mg tablet 12.5 mg (1/2 x 25 mg) PO DAILY #45 09/05/23 03/12/25 Rx tabs glucagon 1 mg/0.2 mL subcutaneous 1 mg (0.2 mL) subcut ONCE #0.4 mL 03/27/24 03/12/25 Rx auto-injector (Gvoke HypoPen 2-Pack) atogepant 30 mg tablet (Qulipta) 30 mg PO DAILY 06/11/24 03/12/25 History tirzepatide 15 mg/0.5 mL 15 mg (0.5 mL) subcut WEEKLY #6 mL 06/11/24 03/12/25 Rx subcutaneous pen injector (Mounjaro) blood sugar diagnostic (Contour #300 ea 08/05/24 03/12/25 Rx Next Test Strips) blood-glucose sensor (Dexcom G7 #9 ea 10/07/24 03/12/25 Rx Sensor device) atorvastatin 40 mg tablet 40 mg PO DAILY #90 tabs 10/21/24 03/12/25 Rx insulin lispro 100 unit/mL 160 unit (1.6 mL) continuous 01/22/25 03/12/25 Rx subcutaneous solution subcutaneous infusion DAILY #150 mL insulin pump cart,auto,BT,G6/7 #45 ea 03/11/25 03/12/25 Rx (Omnipod 5 G6-G7 Pods (Gen 5) subcutaneous cartridge) Allergies Allergy/AdvReac Type Severity Reaction Status Date / Time No Known Allergies Allergy Verified 03/12/25 08:51 Exam Const: General: healthy appearing and alert Orientation/consciousness: patient oriented x3 Resp: Effort & Inspection: normal respiratory effort : External Female Exam: normal external appearance Speculum Exam - Vagina: normal appearance of the vagina and normal vaginal discharge Speculum Exam - Cervix: normal appearance of the cervix Bimanual exam- vagina & uterus: uterine size normal and consistency normal Bimanual Exam- Adnexa, other: normal adnexae and No adnexal tenderness Neuro: General: patient oriented x3 Assessment and Plan Assessment and plan (1) Menorrhagia: Code(s): N92.0 - Excessive and frequent menstruation with regular cycle Status: Acute Assessment and Plan: Plan to proceed with endometrial ablation with Tri device.
[2025-03-17] MEDS: ACETAMINOPHEN 500 MG TABLET 1000 MG PO (10:50)
[2025-03-17] MEDS: LACTATED RINGERS 1,000 ML 30 ML IV CONT (10:50)
[2025-03-17 11:04] VITALS: BP 120/84; PULSE 94; TEMP 36.8; O2SAT 100; BMI 29.0
[2025-03-17 11:07] LABS: BEDSIDEPREGUCG Negative (Negative)
--- NOTE | 2025-03-17 11:08 | WPDANESEPPF ---
Anes - Initial Pre Proc Eval Procedure: Operation Date: 03/17/25 12:00 Proposed Procedures p Hysteroscopy with Tri Endometrial Ablation - Divya Fernandes MD Date/Time: 03/17/25 11:08 Surgeon: Divya Fernandes MD Pre Op Diagnosis: Menorrhagia Patient Data Age: 34 Gender: F Height: 1.73 m Weight: 86.8 kg Last Vital Signs Temp 36.8 C 03/17/25 11:04 Pulse 94 03/17/25 11:04 BP 120/84 03/17/25 11:04 Pulse Ox 100 03/17/25 11:04 O2 Del Method Room Air 03/17/25 11:04 Allergies Allergy/AdvReac Type Severity Reaction Status Date / Time No Known Allergies Allergy Verified 03/12/25 08:51 Home Medications ?Medication ?Instructions ?Recorded ?Confirmed ?Type pen needle, diabetic 32 gauge x #100 ea 12/13/22 03/12/25 Rx 5/32 (BD Ultra-Fine Cornelia Pen Needle) losartan 25 mg tablet 12.5 mg (1/2 x 25 mg) PO DAILY #45 09/05/23 03/12/25 Rx tabs glucagon 1 mg/0.2 mL subcutaneous 1 mg (0.2 mL) subcut ONCE #0.4 mL 03/27/24 03/12/25 Rx auto-injector (Gvoke HypoPen 2-Pack) atogepant 30 mg tablet (Qulipta) 30 mg PO DAILY 06/11/24 03/12/25 History tirzepatide 15 mg/0.5 mL 15 mg (0.5 mL) subcut WEEKLY #6 mL 06/11/24 03/12/25 Rx subcutaneous pen injector (Jayunednaro) blood sugar diagnostic (Contour #300 ea 08/05/24 03/12/25 Rx Next Test Strips) blood-glucose sensor (Dexcom G7 #9 ea 10/07/24 03/12/25 Rx Sensor device) atorvastatin 40 mg tablet 40 mg PO DAILY #90 tabs 10/21/24 03/12/25 Rx insulin lispro 100 unit/mL 160 unit (1.6 mL) continuous 01/22/25 03/12/25 Rx subcutaneous solution subcutaneous infusion DAILY #150 mL insulin pump cart,auto,BT,G6/7 #45 ea 03/11/25 03/12/25 Rx (Omnipod 5 G6-G7 Pods (Gen 5) subcutaneous cartridge) Laboratory Tests 03/17/25 03/17/25 03/17/25 10:53 10:59 11:04 PT Pending INR Pending APTT Pending POC Capillary Glucose 119 H mg/dl (65-105) POC Urine HCG, Qual Negative (Negative) Patient hx anesthesia problems: none Family hx anesthesia problems: none Results Review: All pre-operative results and documents have been reviewed as part of the pre-operative evaluation. [facility] Past Medical History Medical History Vitamin D deficiency Secondary renal hyperparathyroidism Stage 3b chronic kidney disease Type 1 diabetes mellitus Anemia Hyperlipidemia Hypertension Asthma Allergies Surgical History Surgical History History of bilateral tubal ligation History of hysteroscopy November 21, 2022 February 24, 2025 History of cholecystectomy Previous section x2 Family History Family History Father Diabetes mellitus Cerebrovascular accident Mother Multiple sclerosis Grandparent Hypertension Heart problem Ovarian cancer Grandparent Hypertension Depression with anxiety Social History Social History Years smoked: 1 Smoking status: Former smoker Tobacco type: cigarettes Alcohol intake: current Substance use: never Substance use type: does not use Do You Feel Safe in your Home?: Yes Lack of Transportation: No Lack of Food: Never True Concerned About Future Housing: No Difficulty Paying Gas/Electric Bills: No Difficulty Paying for Meds: No Currently Unemployed: No Education: High School Diploma/GED Living arrangements: with family Gender identity (if verbalized by the patient): Female Spiritual care concerns: No Anes - Eval Final PreProcedure Day of Procedure 03/17/25 11:08 Patient weight: obese Heart: regular rate and rhythm Lungs: clear to auscultation Airway: Mallampati scale class II Neurological: alert and oriented Last oral intake: >/= 8 hours ASA classification: III Emergent: no Anesthetic plan: proceed Anesthesia type and monitoring: general GIVS and standard monitoring Results Review: All pre-operative results and documents have been reviewed as part of the pre-operative evaluation. Informed Consent: The patient's anesthetic plan and its attendant risks and benefits were discussed with the patient/family/POA. Questions were solicited and answers provided to the satisfaction of the patient/family/POA.
[2025-03-17 11:19] LABS: INR 1.0; Prothrombin Time 13.3 Seconds (11.1-14.7)
[2025-03-17 11:20] LABS: Partial Thromboplastin Time 29.0 Seconds (22.3-36.8)
[2025-03-17] MEDS: LIDOCAINE 1% LOCAL INJ 10 ML VIAL INFILTRATE (11:31)
[2025-03-17] MEDS: KETOROLAC 30 MG/ML VIAL (*BKC) IV PUSH (11:44)
--- NOTE | 2025-03-17 11:49 | W.PM.PROC2 ---
Procedure Note - Detailed Date of Procedure 03/17/25 Pre-op Diagnosis Menorrhagia Post-op Diagnosis Same Procedure Performed Tri endometrial ablation Surgeon Divya Fernandes MD Anesthesia MAC Findings Uterus sounds to 9cm and appears grossly normal Description of Procedure The patient is taken to the OR and placed under anesthesia in the dorsal lithotomy position. She was prepped and draped in the usual sterile fashion. [place] speculum was placed in the vagina and the cervix grasped on the anterior lip with a tenaculum. The cervix was injected with 1% lidocaine in each quadrant. The uterus is sounded to 9cm. The diagnostic hysteroscope was placed and with no abnormalities noted it is removed. The cervix was serially dilated to an 8 Hegar. The Tri device was opened and placed set at 6cm. Cavity assessment passed on the 1st attempt and treatment cycle lasted the full 2minutes. The Tri device was removed and the hysteroscope replaced. Good ablation effect is noted. All instruments are removed. Sponge, needle, and instrument counts are correct per the OR staff. Patient was awakened from anesthesia and taken to recovery in stable condition. Estimated Blood Loss 5 Drains No Packing No Pathology None sent Complications No immediate complications Condition Stable Disposition PACU
[2025-03-17 11:51] VITALS: BP 111/73; PULSE 86; RESP 14; O2SAT 100
[2025-03-17 12:20] VITALS: BP 107/82; PULSE 78; RESP 16; O2SAT 100
[2025-03-17] MEDS: oxyCODONE HCL (*CRX) 5 MG TAB IR PO (12:45)
[2025-03-17 12:50] VITALS: BP 133/77; PULSE 77; RESP 16
[2025-03-17 13:15] VITALS: BP 130/88; PULSE 61; RESP 16
== END 2025-03-17 13:22 | disposition home or self-care (01) ==
PROVIDERS: Anesthesiology; PCP Nurse Practitioner Adult Health; Visit Provider Obstetrics & Gynecology Gynecology
PROC: 0U5B8ZZ Destruction of Endometrium, Via Natural or Artificial Opening Endoscopic (ICD-10-PCS; CPT 58563; principal; 2025-03-17 12:00)
DX: N92.0 Excessive and frequent menstruation with regular cycle (principal); D64.9 Anemia, unspecified; E78.5 Hyperlipidemia, unspecified; J45.909 Unspecified asthma, uncomplicated; E55.9 Vitamin D deficiency, unspecified; E10.22 Type 1 diabetes mellitus with diabetic chronic kidney disease; I12.9 Hypertensive chronic kidney disease with stage 1 through stage 4 chronic kidney disease, or unspecified chronic kidney disease; N18.32 Chronic kidney disease, stage 3b; N25.81 Secondary hyperparathyroidism of renal origin; E66.9 Obesity, unspecified; Z68.29 Body mass index [BMI] 29.0-29.9, adult; Z79.85 Long-term (current) use of injectable non-insulin antidiabetic drugs; Z79.4 Long term (current) use of insulin; Z98.890 Other specified postprocedural states; Z98.51 Tubal ligation status; Z90.49 Acquired absence of other specified parts of digestive tract; Z87.891 Personal history of nicotine dependence; Z80.41 Family history of malignant neoplasm of ovary
CPT/HCPCS: 58563; 36415; 82948; 85610; 85730; A9270; J1885; J2003; J2250; J2405; J2704; J3010; J7120